=== PATIENT | female | born 1955 | race Caucasian/White ===

== ENCOUNTER 2018-03-27 07:04 | Inpatient (IN) | payer OTHER ==
[2018-03-27 08:37] LABS: ADD MAN DIFF? NO
[2018-03-27 08:41] LABS: BASOPHILS % 0.7 % (0.0-2.0); EOSINOPHILS # 0.1 10^3/ul (0.0-0.5); EOSINOPHILS % 2.6 % (0.0-7.0); HEMOGLOBIN 11.4 g/dl (12.0-16.0); LYMPHOCYTES # 1.1 10^3/ul (0.8-2.9); LYMPHOCYTES % 35.1 % (15.0-51.0); MEAN CORPUSCULAR HEMOGLOBIN 31.8 pg (29.0-33.0); MEAN CORPUSCULAR HGB CONC 33.5 g/dl (32.0-37.0); MEAN CORPUSCULAR VOLUME 94.7 fl (82.0-101.0); MEAN PLATELET VOLUME 10.1 fl (7.4-10.4); MONOCYTE # 0.3 10^3/ul (0.3-0.9); MONOCYTES % 10.6 % (0.0-11.0); NEUTROPHIL # 1.5 10^3/ul (1.6-7.5); NEUTROPHILS % 50.7 % (39.0-77.0); PLATELET COUNT 196 10^3/UL (140-415); RED BLOOD COUNT 3.59 10^6/ul (4.20-5.40)
[2018-03-27] MEDS ORDERED: FENTAnyl 50 MCG/ML VIAL (08:48)
[2018-03-27] MEDS ORDERED: HEPARIN 1000 UNITS/ML 10 ML INJ (08:48)
[2018-03-27] MEDS ORDERED: IODIXANOL LOCM 100 ML BTL (08:48)
[2018-03-27] MEDS ORDERED: MIDAZOLAM 1 MG/ML 2 ML INJ (08:48)
[2018-03-27] MEDS ORDERED: LIDOCAINE 1% (MDV) 20 ML INJ (08:48)
[2018-03-27] MEDS ORDERED: VERAPAMIL 5 MG INJ (08:48)
[2018-03-27] MEDS ORDERED: SOD CHLORIDE 0.9% 500 ML (08:49)
[2018-03-27] MEDS ORDERED: NITROGLYCERIN (IC) 100 MCG/ML INJ (08:49)
[2018-03-27 08:59] LABS: ALANINE AMINOTRANSFERASE 22 IU/L (13-69); ALBUMIN 4.6 g/dl (3.3-4.9); ALBUMIN/GLOBULIN RATIO 1.12; ALKALINE PHOSPHATASE 72 IU/L (42-121); ANION GAP 9 (5-13); ASPARTATE AMINO TRANSFERASE 46 IU/L (15-46); BILIRUBIN,INDIRECT 0.6 mg/dl (0-1.1); BILIRUBIN,TOTAL 0.6 mg/dl (0.2-1.3); BLOOD UREA NITROGEN 14 mg/dl (7-20); CALCIUM 9.8 mg/dl (8.4-10.2); CARBON DIOXIDE 30 mmol/L (21-31); CHLORIDE 103 mmol/L (97-110); CREATININE 0.66 mg/dl (0.44-1.00); Estimated GFR > 60 mL/min (>60); GLUCOSE 95 mg/dl (70-220); POTASSIUM 3.9 mmol/L (3.5-5.1); SODIUM 142 mmol/L (135-144); TOTAL PROTEIN 8.7 g/dl (6.1-8.1)
[2018-03-27 09:01] LABS: INR 1.62; PROTIME 19.3 Sec (11.9-14.9); PT RATIO 1.5
[2018-03-27 09:02] LABS: PARTIAL THROMBOPLASTIN TIME 32.1 Sec (23.0-35.0)
[2018-03-27] MEDS ORDERED: DIAZEPAM 5 MG TAB PO (11:55)
[2018-03-27] MEDS ORDERED: FAMOTIDINE 20 MG TAB PO (12:00)
[2018-03-27] MEDS ORDERED: DIPHENHYDRAMINE 50 MG CAP PO (12:00)
[2018-03-28 08:25] LABS: INR 1.34; PARTIAL THROMBOPLASTIN TIME 27.7 Sec (23.0-35.0); PROTIME 16.7 Sec (11.9-14.9); PT RATIO 1.3
[2018-03-28 08:26] LABS: HDL CHOLESTEROL 61 mg/dl (35-98); LDL CHOLESTEROL,CALCULATED 49 mg/dl; TRIGLYCERIDES 61 mg/dl (0-149)
[2018-03-28 08:26] LABS: CHOLESTEROL 122 mg/dl (100-200)
[2018-03-28] MEDS ORDERED: IODIXANOL LOCM 100 ML BTL (08:57)
[2018-03-28] MEDS ORDERED: FENTAnyl 50 MCG/ML VIAL (08:57)
[2018-03-28] MEDS ORDERED: MIDAZOLAM 1 MG/ML 2 ML INJ (08:57)
[2018-03-28] MEDS ORDERED: LIDOCAINE 1% (MDV) 20 ML INJ (08:57)
[2018-03-28] MEDS ORDERED: AL HYDROX/MG HYDROX/SIMETH 30 ML CUP PO (11:30)
[2018-03-28] MEDS: SOD CHLORIDE 0.9% 1,000 ML IV ×2 (11:39→18:00)
[2018-03-28] MEDS ORDERED: ATROPINE 1 MG/10 ML SYRINGE (12:05)
[2018-03-28] MEDS ORDERED: NORepinephrine 8MG/250 ML (PMX 250 ML (13:44)
[2018-03-28 14:05] LABS: HEMATOCRIT 24.4 % (37.0-47.0); HEMOGLOBIN 7.8 g/dl (12.0-16.0)
[2018-03-28] MEDS: NORepinephrine 8MG/250 ML (PMX 250 ML IV (14:30)
[2018-03-28] MEDS ORDERED: WARFARIN 5 MG TAB PO (17:00)
[2018-03-28] MEDS: SOD CHLORIDE 0.9% 100 ML (18:23)
[2018-03-28] MEDS: IOHEXOL 300MG/ML 150 ML BTL (18:24)
[2018-03-28] MEDS: ACETAMINOPHEN 325 MG TAB PO (20:41)
[2018-03-28] MEDS: ONDANSETRON 4 MG INJ IV (20:41)
[2018-03-28 23:16] LABS: HEMATOCRIT 30.3 % (37.0-47.0); HEMOGLOBIN 9.9 g/dl (12.0-16.0)
[2018-03-29 06:20] LABS: CHOL/HDL RATIO 2.3 RATIO; HDL CHOLESTEROL 36 mg/dl (35-98); LDL CHOLESTEROL,CALCULATED 25 mg/dl; TRIGLYCERIDES 120 mg/dl (0-149)
[2018-03-29 06:20] LABS: CHOLESTEROL 85 mg/dl (100-200)
[2018-03-29 07:09] LABS: ADD MAN DIFF? NO
[2018-03-29 07:16] LABS: BASOPHILS % 0.2 % (0.0-2.0); EOSINOPHILS # 0.1 10^3/ul (0.0-0.5); EOSINOPHILS % 1.2 % (0.0-7.0); HEMATOCRIT 31.2 % (37.0-47.0); HEMOGLOBIN 9.9 g/dl (12.0-16.0); LYMPHOCYTES # 1.1 10^3/ul (0.8-2.9); LYMPHOCYTES % 25.3 % (15.0-51.0); MEAN CORPUSCULAR HEMOGLOBIN 29.6 pg (29.0-33.0); MEAN CORPUSCULAR HGB CONC 31.7 g/dl (32.0-37.0); MEAN CORPUSCULAR VOLUME 93.1 fl (82.0-101.0); MEAN PLATELET VOLUME 10.1 fl (7.4-10.4); MONOCYTE # 0.3 10^3/ul (0.3-0.9); MONOCYTES % 7.4 % (0.0-11.0); NEUTROPHIL # 2.8 10^3/ul (1.6-7.5); NEUTROPHILS % 65.7 % (39.0-77.0); PLATELET COUNT 146 10^3/UL (140-415); RED BLOOD COUNT 3.35 10^6/ul (4.20-5.40); RED CELL DISTRIBUTION WIDTH 15.5 % (11.5-14.5)
[2018-03-29 07:16] LABS: WHITE BLOOD COUNT 4.2 10^3/ul (4.8-10.8)
[2018-03-29 08:03] LABS: ALANINE AMINOTRANSFERASE 21 IU/L (13-69); ALBUMIN 3.2 g/dl (3.3-4.9); ALKALINE PHOSPHATASE 47 IU/L (42-121); ANION GAP 7 (5-13); ASPARTATE AMINO TRANSFERASE 32 IU/L (15-46); BILIRUBIN,INDIRECT 0.7 mg/dl (0-1.1); BILIRUBIN,TOTAL 0.7 mg/dl (0.2-1.3); BLOOD UREA NITROGEN 11 mg/dl (7-20); CALCIUM 8.3 mg/dl (8.4-10.2); CARBON DIOXIDE 24 mmol/L (21-31); CHLORIDE 111 mmol/L (97-110); CREATININE 0.65 mg/dl (0.44-1.00); Estimated GFR > 60 mL/min (>60); GLUCOSE 87 mg/dl (70-220); POTASSIUM 3.8 mmol/L (3.5-5.1); SODIUM 142 mmol/L (135-144); TOTAL PROTEIN 6.1 g/dl (6.1-8.1)
[2018-03-29] MEDS: ACETAMINOPHEN 325 MG TAB PO (11:12)
[2018-03-29] MEDS: SOD CHLORIDE 0.9% 1,000 ML IV ×2 (11:13→20:15)
[2018-03-29 12:33] LABS: HEMATOCRIT 34.5 % (37.0-47.0); HEMOGLOBIN 11.3 g/dl (12.0-16.0)
[2018-03-29 18:49] LABS: HEMATOCRIT 29.1 % (37.0-47.0); HEMOGLOBIN 9.6 g/dl (12.0-16.0)
[2018-03-30] MEDS: ACETAMINOPHEN 325 MG TAB PO ×2 (00:06→10:26)
[2018-03-30 00:58] LABS: HEMATOCRIT 29.1 % (37.0-47.0); HEMOGLOBIN 9.4 g/dl (12.0-16.0)
[2018-03-30 04:56] LABS: ADD MAN DIFF? NO
[2018-03-30 05:22] LABS: BASOPHILS % 0.5 % (0.0-2.0); EOSINOPHILS # 0.1 10^3/ul (0.0-0.5); EOSINOPHILS % 1.8 % (0.0-7.0); HEMATOCRIT 27.3 % (37.0-47.0); HEMOGLOBIN 8.9 g/dl (12.0-16.0); LYMPHOCYTES # 0.9 10^3/ul (0.8-2.9); LYMPHOCYTES % 22.9 % (15.0-51.0); MEAN CORPUSCULAR HEMOGLOBIN 30.9 pg (29.0-33.0); MEAN CORPUSCULAR HGB CONC 32.6 g/dl (32.0-37.0); MEAN CORPUSCULAR VOLUME 94.8 fl (82.0-101.0); MEAN PLATELET VOLUME 10.3 fl (7.4-10.4); MONOCYTE # 0.3 10^3/ul (0.3-0.9); MONOCYTES % 7.3 % (0.0-11.0); NEUTROPHIL # 2.6 10^3/ul (1.6-7.5); PLATELET COUNT 119 10^3/UL (140-415); RED BLOOD COUNT 2.88 10^6/ul (4.20-5.40); RED CELL DISTRIBUTION WIDTH 14.7 % (11.5-14.5)
[2018-03-30 05:22] LABS: WHITE BLOOD COUNT 3.8 10^3/ul (4.8-10.8)
[2018-03-30 05:44] LABS: ALANINE AMINOTRANSFERASE 19 IU/L (13-69); ALBUMIN 3.1 g/dl (3.3-4.9); ALBUMIN/GLOBULIN RATIO 0.96; ALKALINE PHOSPHATASE 42 IU/L (42-121); ANION GAP 9 (5-13); ASPARTATE AMINO TRANSFERASE 25 IU/L (15-46); BILIRUBIN,INDIRECT 0.6 mg/dl (0-1.1); BILIRUBIN,TOTAL 0.6 mg/dl (0.2-1.3); BLOOD UREA NITROGEN 9 mg/dl (7-20); CALCIUM 8.6 mg/dl (8.4-10.2); CARBON DIOXIDE 26 mmol/L (21-31); CHLORIDE 107 mmol/L (97-110); CREATININE 0.61 mg/dl (0.44-1.00); Estimated GFR > 60 mL/min (>60); GLUCOSE 100 mg/dl (70-220); POTASSIUM 3.7 mmol/L (3.5-5.1); SODIUM 142 mmol/L (135-144); TOTAL PROTEIN 6.3 g/dl (6.1-8.1)
[2018-03-30] MEDS: AMLODIPINE 5 MG TAB PO ×2 (10:27→20:14)
[2018-03-30] MEDS: MOMETASONE 0.24 GM INHALER INH (12:06)
[2018-03-30 13:12] LABS: IMMEDIATE SPIN CROSSMATCH 1 4
[2018-03-30] MEDS: SOD CHLORIDE 0.9% 250 ML IV* (15:20)
[2018-03-30 16:23] LABS: HEMATOCRIT 37.5 % (37.0-47.0); HEMOGLOBIN 12.3 g/dl (12.0-16.0)
[2018-03-30] MEDS: SOD CHLORIDE 0.9% 1,000 ML IV (16:29)
[2018-03-30] MEDS: ATORVASTATIN 10 MG TAB PO (20:13)
[2018-03-30] MEDS: RANITIDINE 150 MG TAB PO (20:14)
[2018-03-31] MEDS: morphine 2 MG INJ IV (03:55)
[2018-03-31] MEDS: SOD CHLORIDE 0.9% 1,000 ML IV ×3 (04:34→23:13)
[2018-03-31 05:25] LABS: ADD MAN DIFF? NO
[2018-03-31 05:33] LABS: WHITE BLOOD COUNT 4.5 10^3/ul (4.8-10.8)
[2018-03-31 05:33] LABS: BASOPHILS % 0.7 % (0.0-2.0); EOSINOPHILS # 0.1 10^3/ul (0.0-0.5); HEMOGLOBIN 11.5 g/dl (12.0-16.0); LYMPHOCYTES # 0.9 10^3/ul (0.8-2.9); LYMPHOCYTES % 20.2 % (15.0-51.0); MEAN CORPUSCULAR HEMOGLOBIN 31.4 pg (29.0-33.0); MEAN CORPUSCULAR HGB CONC 33.8 g/dl (32.0-37.0); MEAN CORPUSCULAR VOLUME 92.9 fl (82.0-101.0); MEAN PLATELET VOLUME 9.8 fl (7.4-10.4); MONOCYTE # 0.3 10^3/ul (0.3-0.9); MONOCYTES % 7.1 % (0.0-11.0); NEUTROPHIL # 3.1 10^3/ul (1.6-7.5); NEUTROPHILS % 69.3 % (39.0-77.0); PLATELET COUNT 104 10^3/UL (140-415); RED BLOOD COUNT 3.66 10^6/ul (4.20-5.40); RED CELL DISTRIBUTION WIDTH 14.2 % (11.5-14.5)
[2018-03-31 05:58] LABS: ALANINE AMINOTRANSFERASE 17 IU/L (13-69); ALBUMIN 3.1 g/dl (3.3-4.9); ALBUMIN/GLOBULIN RATIO 0.96; ALKALINE PHOSPHATASE 44 IU/L (42-121); ANION GAP 10 (5-13); ASPARTATE AMINO TRANSFERASE 27 IU/L (15-46); BILIRUBIN,INDIRECT 0.7 mg/dl (0-1.1); BILIRUBIN,TOTAL 0.7 mg/dl (0.2-1.3); BLOOD UREA NITROGEN 7 mg/dl (7-20); CALCIUM 8.3 mg/dl (8.4-10.2); CARBON DIOXIDE 26 mmol/L (21-31); CHLORIDE 108 mmol/L (97-110); Estimated GFR > 60 mL/min (>60); GLUCOSE 103 mg/dl (70-220); POTASSIUM 3.5 mmol/L (3.5-5.1); SODIUM 144 mmol/L (135-144); TOTAL PROTEIN 6.3 g/dl (6.1-8.1)
[2018-03-31] MEDS: LEVOTHYROXINE 50 MCG TAB PO (06:38)
[2018-03-31] MEDS: AMLODIPINE 5 MG TAB PO ×2 (08:44→21:17)
[2018-03-31] MEDS: MOMETASONE 0.24 GM INHALER INH (08:44)
[2018-03-31] MEDS: ONDANSETRON 4 MG INJ IV (09:29)
[2018-03-31] MEDS ORDERED: HEPARIN 1000 UNITS/ML 10 ML INJ IV (10:30)
[2018-03-31 10:58] LABS: ADD MAN DIFF? NO
[2018-03-31 11:00] LABS: WHITE BLOOD COUNT 4.4 10^3/ul (4.8-10.8)
[2018-03-31 11:00] LABS: BASOPHILS % 0.7 % (0.0-2.0); EOSINOPHILS # 0.1 10^3/ul (0.0-0.5); EOSINOPHILS % 1.6 % (0.0-7.0); HEMATOCRIT 34.6 % (37.0-47.0); HEMOGLOBIN 11.4 g/dl (12.0-16.0); LYMPHOCYTES # 0.6 10^3/ul (0.8-2.9); LYMPHOCYTES % 14.4 % (15.0-51.0); MEAN CORPUSCULAR HEMOGLOBIN 30.9 pg (29.0-33.0); MEAN CORPUSCULAR HGB CONC 32.9 g/dl (32.0-37.0); MEAN CORPUSCULAR VOLUME 93.8 fl (82.0-101.0); MEAN PLATELET VOLUME 11.3 fl (7.4-10.4); MONOCYTE # 0.2 10^3/ul (0.3-0.9); MONOCYTES % 5.5 % (0.0-11.0); NEUTROPHIL # 3.4 10^3/ul (1.6-7.5); NEUTROPHILS % 77.1 % (39.0-77.0); PLATELET COUNT 101 10^3/UL (140-415); RED BLOOD COUNT 3.69 10^6/ul (4.20-5.40); RED CELL DISTRIBUTION WIDTH 14.3 % (11.5-14.5)
[2018-03-31 11:19] LABS: PROTIME 14.3 Sec (11.9-14.9); PT RATIO 1.1
[2018-03-31 11:20] LABS: PARTIAL THROMBOPLASTIN TIME 22.7 Sec (23.0-35.0)
[2018-03-31] MEDS: HEPARIN 1000 UNITS/ML 10 ML INJ IV (12:18)
[2018-03-31] MEDS: HEPARIN 25000 UNITS/250 ML 250 ML IV (12:24)
[2018-03-31 15:05] LABS: ADD MAN DIFF? NO
[2018-03-31 15:08] LABS: BASOPHILS % 0.5 % (0.0-2.0); EOSINOPHILS # 0.1 10^3/ul (0.0-0.5); EOSINOPHILS % 2.9 % (0.0-7.0); HEMOGLOBIN 11.5 g/dl (12.0-16.0); LYMPHOCYTES # 0.9 10^3/ul (0.8-2.9); LYMPHOCYTES % 20.9 % (15.0-51.0); MEAN CORPUSCULAR HEMOGLOBIN 30.5 pg (29.0-33.0); MEAN CORPUSCULAR HGB CONC 32.9 g/dl (32.0-37.0); MEAN CORPUSCULAR VOLUME 92.8 fl (82.0-101.0); MONOCYTE # 0.3 10^3/ul (0.3-0.9); NEUTROPHILS % 68.5 % (39.0-77.0); PLATELET COUNT 107 10^3/UL (140-415); RED BLOOD COUNT 3.77 10^6/ul (4.20-5.40); RED CELL DISTRIBUTION WIDTH 14.4 % (11.5-14.5)
[2018-03-31 15:08] LABS: WHITE BLOOD COUNT 4.4 10^3/ul (4.8-10.8)
[2018-03-31 19:00] LABS: PARTIAL THROMBOPLASTIN TIME 105.9 Sec (23.0-35.0)
[2018-03-31] MEDS: ATORVASTATIN 10 MG TAB PO (21:17)
[2018-03-31] MEDS: RANITIDINE 150 MG TAB PO (21:17)
[2018-03-31] MEDS: ACETAMINOPHEN 325 MG TAB PO (21:50)
[2018-04-01 01:13] LABS: PARTIAL THROMBOPLASTIN TIME 58.4 Sec (23.0-35.0)
[2018-04-01 05:27] LABS: ADD MAN DIFF? NO
[2018-04-01 05:31] LABS: BASOPHILS % 0.5 % (0.0-2.0); EOSINOPHILS # 0.1 10^3/ul (0.0-0.5); EOSINOPHILS % 3.5 % (0.0-7.0); HEMATOCRIT 34.7 % (37.0-47.0); HEMOGLOBIN 11.4 g/dl (12.0-16.0); LYMPHOCYTES # 0.9 10^3/ul (0.8-2.9); LYMPHOCYTES % 22.8 % (15.0-51.0); MEAN CORPUSCULAR HGB CONC 32.9 g/dl (32.0-37.0); MEAN CORPUSCULAR VOLUME 94.3 fl (82.0-101.0); MONOCYTE # 0.3 10^3/ul (0.3-0.9); MONOCYTES % 7.8 % (0.0-11.0); NEUTROPHIL # 2.4 10^3/ul (1.6-7.5); NEUTROPHILS % 64.6 % (39.0-77.0); PLATELET COUNT 107 10^3/UL (140-415); RED BLOOD COUNT 3.68 10^6/ul (4.20-5.40); RED CELL DISTRIBUTION WIDTH 14.2 % (11.5-14.5)
[2018-04-01 05:31] LABS: WHITE BLOOD COUNT 3.7 10^3/ul (4.8-10.8)
[2018-04-01 05:55] LABS: ALANINE AMINOTRANSFERASE 22 IU/L (13-69); ALBUMIN/GLOBULIN RATIO 0.93; ALKALINE PHOSPHATASE 48 IU/L (42-121); ANION GAP 1 (5-13); ASPARTATE AMINO TRANSFERASE 28 IU/L (15-46); BILIRUBIN,INDIRECT 0.6 mg/dl (0-1.1); BILIRUBIN,TOTAL 0.6 mg/dl (0.2-1.3); BLOOD UREA NITROGEN 8 mg/dl (7-20); CALCIUM 8.4 mg/dl (8.4-10.2); CARBON DIOXIDE 28 mmol/L (21-31); CHLORIDE 113 mmol/L (97-110); CREATININE 0.56 mg/dl (0.44-1.00); Estimated GFR > 60 mL/min (>60); GLUCOSE 95 mg/dl (70-220); POTASSIUM 3.6 mmol/L (3.5-5.1); SODIUM 142 mmol/L (135-144); TOTAL PROTEIN 6.2 g/dl (6.1-8.1)
[2018-04-01] MEDS: LEVOTHYROXINE 50 MCG TAB PO (06:47)
[2018-04-01] MEDS: ACETAMINOPHEN 325 MG TAB PO ×3 (07:21→23:35)
[2018-04-01 08:56] LABS: PARTIAL THROMBOPLASTIN TIME 53.5 Sec (23.0-35.0)
[2018-04-01] MEDS: MOMETASONE 0.24 GM INHALER INH (09:06)
[2018-04-01] MEDS: AMLODIPINE 5 MG TAB PO ×2 (09:07→20:45)
[2018-04-01] MEDS: FUROSEMIDE 20 MG INJ IV (09:09)
[2018-04-01 14:46] LABS: INR 1.08; PROTIME 14.1 Sec (11.9-14.9); PT RATIO 1.1
[2018-04-01 14:47] LABS: PARTIAL THROMBOPLASTIN TIME 54.3 Sec (23.0-35.0)
[2018-04-01] MEDS: SOD CHLORIDE 0.9% 1,000 ML IV ×2 (16:06→20:48)
[2018-04-01 16:13] LABS: ADD MAN DIFF? NO; BASOPHILS % 0.4 % (0.0-2.0); EOSINOPHILS # 0.1 10^3/ul (0.0-0.5); EOSINOPHILS % 2.3 % (0.0-7.0); HEMATOCRIT 35.3 % (37.0-47.0); HEMOGLOBIN 11.7 g/dl (12.0-16.0); LYMPHOCYTES # 0.7 10^3/ul (0.8-2.9); LYMPHOCYTES % 13.6 % (15.0-51.0); MEAN CORPUSCULAR HGB CONC 33.1 g/dl (32.0-37.0); MEAN CORPUSCULAR VOLUME 93.4 fl (82.0-101.0); MEAN PLATELET VOLUME 9.7 fl (7.4-10.4); MONOCYTE # 0.3 10^3/ul (0.3-0.9); MONOCYTES % 6.4 % (0.0-11.0); NEUTROPHIL # 3.7 10^3/ul (1.6-7.5); NEUTROPHILS % 77.1 % (39.0-77.0); PLATELET COUNT 116 10^3/UL (140-415); RED BLOOD COUNT 3.78 10^6/ul (4.20-5.40); RED CELL DISTRIBUTION WIDTH 14.1 % (11.5-14.5)
[2018-04-01 16:13] LABS: WHITE BLOOD COUNT 4.9 10^3/ul (4.8-10.8)
[2018-04-01] MEDS: WARFARIN 5 MG TAB NGT (17:18)
[2018-04-01] MEDS: ATORVASTATIN 10 MG TAB PO (20:44)
[2018-04-01] MEDS: RANITIDINE 150 MG TAB PO (20:45)
[2018-04-01 22:37] LABS: INR 1.17; PT RATIO 1.2
[2018-04-01 23:01] LABS: PARTIAL THROMBOPLASTIN TIME 79.5 Sec (23.0-35.0)
[2018-04-02 05:24] LABS: ADD MAN DIFF? NO
[2018-04-02 05:28] LABS: WHITE BLOOD COUNT 4.3 10^3/ul (4.8-10.8)
[2018-04-02 05:28] LABS: BASOPHILS % 0.5 % (0.0-2.0); EOSINOPHILS # 0.1 10^3/ul (0.0-0.5); EOSINOPHILS % 2.6 % (0.0-7.0); HEMATOCRIT 34.6 % (37.0-47.0); HEMOGLOBIN 11.4 g/dl (12.0-16.0); LYMPHOCYTES # 0.8 10^3/ul (0.8-2.9); LYMPHOCYTES % 18.3 % (15.0-51.0); MEAN CORPUSCULAR HGB CONC 32.9 g/dl (32.0-37.0); MEAN PLATELET VOLUME 10.1 fl (7.4-10.4); MONOCYTE # 0.3 10^3/ul (0.3-0.9); MONOCYTES % 7.3 % (0.0-11.0); NEUTROPHILS % 71.1 % (39.0-77.0); PLATELET COUNT 118 10^3/UL (140-415); RED BLOOD COUNT 3.68 10^6/ul (4.20-5.40)
[2018-04-02] MEDS: LEVOTHYROXINE 50 MCG TAB PO ×2 (05:36→07:54)
[2018-04-02 06:18] LABS: INR 1.18; PROTIME 15.1 Sec (11.9-14.9); PT RATIO 1.2
[2018-04-02 06:42] LABS: PARTIAL THROMBOPLASTIN TIME 84.6 Sec (23.0-35.0)
[2018-04-02] MEDS: ACETAMINOPHEN 325 MG TAB PO ×2 (07:54→12:08)
[2018-04-02] MEDS: MOMETASONE 0.24 GM INHALER INH (07:54)
[2018-04-02] MEDS: AMLODIPINE 5 MG TAB PO ×2 (08:02→20:47)
[2018-04-02 12:45] LABS: INR 1.18; PROTIME 15.1 Sec (11.9-14.9); PT RATIO 1.2
[2018-04-02 12:46] LABS: PARTIAL THROMBOPLASTIN TIME 63.3 Sec (23.0-35.0)
[2018-04-02] MEDS: FUROSEMIDE 20 MG INJ IV (15:15)
[2018-04-02] MEDS: HEPARIN 25000 UNITS/250 ML 250 ML IV (15:18)
[2018-04-02] MEDS: WARFARIN 5 MG TAB NGT (16:41)
[2018-04-02 18:40] LABS: PROTIME 15.3 Sec (11.9-14.9); PT RATIO 1.2
[2018-04-02 18:41] LABS: PARTIAL THROMBOPLASTIN TIME 55.5 Sec (23.0-35.0)
[2018-04-02] MEDS: ATORVASTATIN 10 MG TAB PO (20:46)
[2018-04-02] MEDS: LATANOPROST 0.005% 2.5 ML OPH BOTH EYES (20:46)
[2018-04-02] MEDS: RANITIDINE 150 MG TAB PO (20:46)
[2018-04-03] MEDS: ACETAMINOPHEN 325 MG TAB PO ×2 (01:25→11:12)
[2018-04-03 02:52] LABS: ADD MAN DIFF? NO
[2018-04-03 02:55] LABS: WHITE BLOOD COUNT 5.5 10^3/ul (4.8-10.8)
[2018-04-03 02:55] LABS: BASOPHILS % 0.2 % (0.0-2.0); EOSINOPHILS % 0.7 % (0.0-7.0); HEMATOCRIT 33.2 % (37.0-47.0); HEMOGLOBIN 11.1 g/dl (12.0-16.0); LYMPHOCYTES # 0.7 10^3/ul (0.8-2.9); LYMPHOCYTES % 11.8 % (15.0-51.0); MEAN CORPUSCULAR HGB CONC 33.4 g/dl (32.0-37.0); MEAN CORPUSCULAR VOLUME 92.7 fl (82.0-101.0); MONOCYTE # 0.4 10^3/ul (0.3-0.9); MONOCYTES % 7.6 % (0.0-11.0); NEUTROPHIL # 4.4 10^3/ul (1.6-7.5); NEUTROPHILS % 79.3 % (39.0-77.0); PLATELET COUNT 128 10^3/UL (140-415); RED BLOOD COUNT 3.58 10^6/ul (4.20-5.40)
[2018-04-03] MEDS: CEFTRIAXONE 1 GM/50 ML (PMX) 50 ML IVPB (03:04)
[2018-04-03 03:15] LABS: ANION GAP 4 (5-13); BLOOD UREA NITROGEN 9 mg/dl (7-20); CALCIUM 8.7 mg/dl (8.4-10.2); CARBON DIOXIDE 32 mmol/L (21-31); CHLORIDE 103 mmol/L (97-110); CREATININE 0.55 mg/dl (0.44-1.00); Estimated GFR > 60 mL/min (>60); GLUCOSE 120 mg/dl (70-220); INR 1.32; POTASSIUM 3.3 mmol/L (3.5-5.1); PROTIME 16.5 Sec (11.9-14.9); PT RATIO 1.3; SODIUM 139 mmol/L (135-144)
[2018-04-03 03:16] LABS: ADD UMIC YES; UR ASCORBIC ACID NEGATIVE (NEGATIVE); UR BACTERIA FEW /HPF (NONE SEEN); UR BILIRUBIN (Dip) NEGATIVE (NEGATIVE); UR BLOOD (Dip) 1+ mg/dL (NEGATIVE); UR CLARITY CLOUDY (CLEAR); UR COLOR YELLOW (YELLOW); UR GLUCOSE (Dip) NEGATIVE (NEGATIVE); UR KETONES (Dip) NEGATIVE (NEGATIVE); UR LEUKOCYTE ESTERASE (Dip) 3+ Leu/ul (NEGATIVE); UR NITRITE (Dip) NEGATIVE (NEGATIVE); UR RBC 63 /HPF (0-5); UR SPECIFIC GRAVITY (Dip) 1.014 (1.003-1.030); UR SQUAMOUS EPITHELIAL CELL FEW /HPF (FEW); UR TOTAL PROTEIN (Dip) 1+ mg/dl (NEGATIVE); UR UROBILINOGEN (Dip) NEGATIVE (NEGATIVE); UR WBC > 182 /HPF (0-5)
[2018-04-03 03:20] LABS: PARTIAL THROMBOPLASTIN TIME 85.2 Sec (23.0-35.0)
[2018-04-03] MEDS: POTASSIUM CHLORIDE (SR) 20 MEQ TAB PO (08:52)
[2018-04-03] MEDS: AMLODIPINE 5 MG TAB PO (08:52)
[2018-04-03] MEDS: MOMETASONE 0.24 GM INHALER INH (08:53)
[2018-04-03] MEDS: FUROSEMIDE 20 MG INJ IV (08:53)
[2018-04-03 11:01] LABS: PARTIAL THROMBOPLASTIN TIME 77.2 Sec (23.0-35.0)
[2018-04-03] MEDS: morphine 2 MG INJ IV ×2 (11:57→16:02)
[2018-04-03 14:08] LABS: ADD MAN DIFF? NO
[2018-04-03 14:09] LABS: WHITE BLOOD COUNT 12.4 10^3/ul (4.8-10.8)
[2018-04-03 14:09] LABS: BASOPHILS % 0.3 % (0.0-2.0); EOSINOPHILS # 0.1 10^3/ul (0.0-0.5); EOSINOPHILS % 0.7 % (0.0-7.0); HEMATOCRIT 32.9 % (37.0-47.0); HEMOGLOBIN 10.9 g/dl (12.0-16.0); LYMPHOCYTES # 1.4 10^3/ul (0.8-2.9); LYMPHOCYTES % 11.6 % (15.0-51.0); MEAN CORPUSCULAR HEMOGLOBIN 31.1 pg (29.0-33.0); MEAN CORPUSCULAR HGB CONC 33.1 g/dl (32.0-37.0); MEAN CORPUSCULAR VOLUME 93.7 fl (82.0-101.0); MEAN PLATELET VOLUME 10.4 fl (7.4-10.4); MONOCYTE # 0.5 10^3/ul (0.3-0.9); MONOCYTES % 3.7 % (0.0-11.0); NEUTROPHIL # 10.3 10^3/ul (1.6-7.5); NEUTROPHILS % 82.8 % (39.0-77.0); PLATELET COUNT 206 10^3/UL (140-415); RED BLOOD COUNT 3.51 10^6/ul (4.20-5.40); RED CELL DISTRIBUTION WIDTH 14.2 % (11.5-14.5)
[2018-04-03 14:42] LABS: LACTIC ACID 5.5 mmol/L (0.5-2.0)
[2018-04-03] MEDS: SOD CHLORIDE 0.9% 500 ML IV (15:44)
[2018-04-03] MEDS: LACTATED RINGER'S 1,000 ML IV (15:44)
[2018-04-03] MEDS ORDERED: VANCOMYCIN IV PER PHARMACY XX (16:00)
[2018-04-03 16:20] LABS: ADD MAN DIFF? NO
[2018-04-03 16:22] LABS: BASOPHILS % 0.2 % (0.0-2.0); HEMATOCRIT 28.5 % (37.0-47.0); HEMOGLOBIN 9.4 g/dl (12.0-16.0); LYMPHOCYTES # 0.8 10^3/ul (0.8-2.9); LYMPHOCYTES % 6.9 % (15.0-51.0); MEAN CORPUSCULAR HEMOGLOBIN 31.1 pg (29.0-33.0); MEAN CORPUSCULAR VOLUME 94.4 fl (82.0-101.0); MEAN PLATELET VOLUME 9.7 fl (7.4-10.4); MONOCYTE # 0.8 10^3/ul (0.3-0.9); MONOCYTES % 6.3 % (0.0-11.0); NEUTROPHIL # 10.2 10^3/ul (1.6-7.5); NEUTROPHILS % 85.3 % (39.0-77.0); PLATELET COUNT 172 10^3/UL (140-415); RED BLOOD COUNT 3.02 10^6/ul (4.20-5.40); RED CELL DISTRIBUTION WIDTH 14.2 % (11.5-14.5)
[2018-04-03 16:39] LABS: ANION GAP 7 (5-13); BLOOD UREA NITROGEN 13 mg/dl (7-20); CALCIUM 8.1 mg/dl (8.4-10.2); CARBON DIOXIDE 27 mmol/L (21-31); CHLORIDE 102 mmol/L (97-110); Estimated GFR 56 mL/min (>60); GLUCOSE 203 mg/dl (70-220); POTASSIUM 3.9 mmol/L (3.5-5.1); SODIUM 136 mmol/L (135-144)
[2018-04-03] MEDS: WARFARIN 5 MG TAB NGT (17:00)
[2018-04-03 17:04] LABS: PARTIAL THROMBOPLASTIN TIME 102.7 Sec (23.0-35.0)
[2018-04-03] MEDS: IOHEXOL 300MG/ML 150 ML BTL (17:05)
[2018-04-03] MEDS: SOD CHLORIDE 0.9% 100 ML (17:05)
[2018-04-03] MEDS: PIPER-TAZO 3.375 GM IV (PMX) 100 ML IVPB (17:25)
[2018-04-03] MEDS: DIGOXIN 500 MCG INJ IV (17:45)
[2018-04-03 18:02] LABS: HEMATOCRIT 19.3 % (37.0-47.0)
[2018-04-03 18:05] LABS: HEMOGLOBIN 6.1 g/dl (12.0-16.0)
[2018-04-03 18:39] LABS: IMMEDIATE SPIN CROSSMATCH 1 2
[2018-04-03] MEDS: NS + KCL 20 MEQ 1,000 ML IV ×2 (18:59→22:26)
[2018-04-03] MEDS ORDERED: PHENYLephrine 40 MG in DEXTROSE 5% 246 ML IV (19:30)
[2018-04-03] MEDS: ATORVASTATIN 10 MG TAB PO (21:00)
[2018-04-03] MEDS ORDERED: IOHEXOL 350MG/ML 50 ML BTL (21:24)
[2018-04-03] MEDS ORDERED: LIDOCAINE 1% (MDV) 20 ML INJ (21:24)
[2018-04-03] MEDS ORDERED: IODIXANOL LOCM 100 ML BTL (21:24)
[2018-04-03] MEDS ORDERED: FENTAnyl 50 MCG/ML VIAL (21:25)
[2018-04-03] MEDS ORDERED: MIDAZOLAM 1 MG/ML 2 ML INJ (21:25)
[2018-04-03] MEDS ORDERED: SOD CHLORIDE 0.9% 500 ML (21:25)
[2018-04-03] MEDS: VANCOMYCIN HCL 1.25 GM in SOD CHLORIDE 0.9% 250 ML IVPB (22:25)
[2018-04-03] MEDS: FAMOTIDINE 20 MG INJ IV (22:26)
[2018-04-03] MEDS: LATANOPROST 0.005% 2.5 ML OPH BOTH EYES (22:26)
[2018-04-03] MEDS: ONDANSETRON 4 MG INJ IV (22:59)
[2018-04-04] MEDS: PIPER-TAZO 3.375 GM IV (PMX) 100 ML IVPB ×2 (00:21→06:01)
[2018-04-04] MEDS: morphine 2 MG INJ IV ×3 (00:26→21:24)
[2018-04-04 00:49] LABS: HEMATOCRIT 36.1 % (37.0-47.0); HEMOGLOBIN 12.1 g/dl (12.0-16.0)
[2018-04-04 05:26] LABS: ADD MAN DIFF? NO
[2018-04-04 05:28] LABS: WHITE BLOOD COUNT 15.9 10^3/ul (4.8-10.8)
[2018-04-04 05:28] LABS: BASOPHILS % 0.2 % (0.0-2.0); HEMATOCRIT 37.5 % (37.0-47.0); HEMOGLOBIN 12.3 g/dl (12.0-16.0); LYMPHOCYTES # 1.1 10^3/ul (0.8-2.9); LYMPHOCYTES % 6.9 % (15.0-51.0); MEAN CORPUSCULAR HEMOGLOBIN 31.2 pg (29.0-33.0); MEAN CORPUSCULAR HGB CONC 32.8 g/dl (32.0-37.0); MEAN CORPUSCULAR VOLUME 95.2 fl (82.0-101.0); MEAN PLATELET VOLUME 10.2 fl (7.4-10.4); MONOCYTE # 1.3 10^3/ul (0.3-0.9); MONOCYTES % 8.3 % (0.0-11.0); NEUTROPHIL # 13.3 10^3/ul (1.6-7.5); NEUTROPHILS % 83.4 % (39.0-77.0); PLATELET COUNT 140 10^3/UL (140-415); RED BLOOD COUNT 3.94 10^6/ul (4.20-5.40); RED CELL DISTRIBUTION WIDTH 15.3 % (11.5-14.5)
[2018-04-04 05:51] LABS: INR 1.73; PROTIME 20.3 Sec (11.9-14.9); PT RATIO 1.6
[2018-04-04 06:02] LABS: ANION GAP 8 (5-13); BLOOD UREA NITROGEN 21 mg/dl (7-20); CALCIUM 8.1 mg/dl (8.4-10.2); CARBON DIOXIDE 20 mmol/L (21-31); CHLORIDE 108 mmol/L (97-110); CREATININE 1.94 mg/dl (0.44-1.00); Estimated GFR 26 mL/min (>60); GLUCOSE 139 mg/dl (70-220); SODIUM 136 mmol/L (135-144)
[2018-04-04] MEDS: NS + KCL 20 MEQ 1,000 ML IV (07:20)
[2018-04-04] MEDS: NA BICARBONATE 8.4% 50 ML SYG IV (08:14)
[2018-04-04] MEDS: LEVOTHYROXINE 50 MCG TAB PO (08:14)
[2018-04-04] MEDS: AMLODIPINE 5 MG TAB PO (09:00)
[2018-04-04] MEDS: DEXTROSE 50% 50 ML SYRINGE IV (09:11)
[2018-04-04] MEDS: INSULIN REGULAR, HUMAN 100 UNIT/1 ML 3ML VIAL IV (09:37)
[2018-04-04 10:39] LABS: ADD MAN DIFF? NO
[2018-04-04] MEDS: FAMOTIDINE 20 MG INJ IV ×2 (10:42→20:25)
[2018-04-04 10:52] LABS: WHITE BLOOD COUNT 15.5 10^3/ul (4.8-10.8)
[2018-04-04 10:52] LABS: BASOPHILS % 0.2 % (0.0-2.0); HEMOGLOBIN 11.6 g/dl (12.0-16.0); LYMPHOCYTES % 6.7 % (15.0-51.0); MEAN CORPUSCULAR HEMOGLOBIN 30.9 pg (29.0-33.0); MEAN CORPUSCULAR HGB CONC 33.1 g/dl (32.0-37.0); MEAN CORPUSCULAR VOLUME 93.3 fl (82.0-101.0); MEAN PLATELET VOLUME 10.8 fl (7.4-10.4); MONOCYTE # 1.3 10^3/ul (0.3-0.9); MONOCYTES % 8.3 % (0.0-11.0); PLATELET COUNT 162 10^3/UL (140-415); RED BLOOD COUNT 3.75 10^6/ul (4.20-5.40); RED CELL DISTRIBUTION WIDTH 15.4 % (11.5-14.5)
[2018-04-04 10:58] LABS: ANION GAP 9 (5-13); BLOOD UREA NITROGEN 25 mg/dl (7-20); CALCIUM 8.2 mg/dl (8.4-10.2); CARBON DIOXIDE 23 mmol/L (21-31); CHLORIDE 106 mmol/L (97-110); CREATININE 2.23 mg/dl (0.44-1.00); Estimated GFR 22 mL/min (>60); GLUCOSE 146 mg/dl (70-220); POTASSIUM 5.2 mmol/L (3.5-5.1); SODIUM 138 mmol/L (135-144)
[2018-04-04 11:09] LABS: LACTIC ACID 3.9 mmol/L (0.5-2.0)
[2018-04-04] MEDS: PIPER-TAZO 2.25 GM/NS 50 ML IVPB ×3 (12:35→23:43)
[2018-04-04] MEDS: FUROSEMIDE 40 MG INJ IV (14:27)
[2018-04-04 16:09] LABS: HEMATOCRIT 33.6 % (37.0-47.0); HEMOGLOBIN 11.1 g/dl (12.0-16.0)
[2018-04-04 16:27] LABS: ANION GAP 7 (5-13); BLOOD UREA NITROGEN 29 mg/dl (7-20); CALCIUM 8.3 mg/dl (8.4-10.2); CARBON DIOXIDE 23 mmol/L (21-31); CHLORIDE 102 mmol/L (97-110); CREATININE 2.74 mg/dl (0.44-1.00); Estimated GFR 18 mL/min (>60); GLUCOSE 212 mg/dl (70-220); SODIUM 132 mmol/L (135-144)
[2018-04-04] MEDS: ONDANSETRON 4 MG INJ IV ×2 (18:26→23:52)
[2018-04-04] MEDS ORDERED: VANCOMYCIN 1 GM 250 ML IVPB (20:00)
[2018-04-04] MEDS: LATANOPROST 0.005% 2.5 ML OPH BOTH EYES (20:25)
[2018-04-04] MEDS: ATORVASTATIN 10 MG TAB PO (20:25)
[2018-04-05 00:25] LABS: ADD UMIC YES; UR ASCORBIC ACID NEGATIVE (NEGATIVE); UR BACTERIA FEW /HPF (NONE SEEN); UR BILIRUBIN (Dip) NEGATIVE (NEGATIVE); UR BLOOD (Dip) 3+ mg/dL (NEGATIVE); UR CLARITY SLIGHTLY CLOUDY (CLEAR); UR COLOR AMBER (YELLOW); UR GLUCOSE (Dip) 2+ mg/dL (NEGATIVE); UR KETONES (Dip) NEGATIVE (NEGATIVE); UR LEUKOCYTE ESTERASE (Dip) NEGATIVE Leu/ul (NEGATIVE); UR NITRITE (Dip) NEGATIVE (NEGATIVE); UR RBC > 182 /HPF (0-5); UR SPECIFIC GRAVITY (Dip) 1.018 (1.003-1.030); UR TOTAL PROTEIN (Dip) 2+ mg/dl (NEGATIVE); UR UROBILINOGEN (Dip) NEGATIVE (NEGATIVE); UR WBC 6 /HPF (0-5)
[2018-04-05 02:04] LABS: SODIUM,URINE RANDOM 152 mmol/L (30-90)
[2018-04-05 02:07] LABS: CREATININE,URINE RANDOM < 12.40 mg/dl (20-320)
[2018-04-05] MEDS: ONDANSETRON 4 MG INJ IV ×4 (03:39→21:16)
[2018-04-05] MEDS: PIPER-TAZO 2.25 GM/NS 50 ML IVPB ×2 (05:26→12:52)
[2018-04-05 05:27] LABS: ADD MAN DIFF? NO
[2018-04-05 05:36] LABS: BASOPHILS % 0.2 % (0.0-2.0); HEMATOCRIT 29.9 % (37.0-47.0); LYMPHOCYTES # 0.6 10^3/ul (0.8-2.9); LYMPHOCYTES % 4.8 % (15.0-51.0); MEAN CORPUSCULAR HGB CONC 33.4 g/dl (32.0-37.0); MEAN CORPUSCULAR VOLUME 92.6 fl (82.0-101.0); MONOCYTE # 0.8 10^3/ul (0.3-0.9); MONOCYTES % 6.2 % (0.0-11.0); NEUTROPHIL # 11.5 10^3/ul (1.6-7.5); NEUTROPHILS % 88.1 % (39.0-77.0); PLATELET COUNT 155 10^3/UL (140-415); RED BLOOD COUNT 3.23 10^6/ul (4.20-5.40); RED CELL DISTRIBUTION WIDTH 15.1 % (11.5-14.5)
[2018-04-05 05:51] LABS: INR 1.67; PROTIME 19.8 Sec (11.9-14.9); PT RATIO 1.5
[2018-04-05 06:32] LABS: ANION GAP 12 (5-13); BLOOD UREA NITROGEN 41 mg/dl (7-20); CALCIUM 8.6 mg/dl (8.4-10.2); CARBON DIOXIDE 22 mmol/L (21-31); CHLORIDE 103 mmol/L (97-110); CREATININE 3.75 mg/dl (0.44-1.00); Estimated GFR 12 mL/min (>60); GLUCOSE 146 mg/dl (70-220); POTASSIUM 5.6 mmol/L (3.5-5.1); SODIUM 137 mmol/L (135-144)
[2018-04-05] MEDS: LEVOTHYROXINE 50 MCG TAB PO (08:41)
[2018-04-05] MEDS: FAMOTIDINE 20 MG INJ IV (08:41)
[2018-04-05] MEDS: MOMETASONE 0.24 GM INHALER INH ×2 (08:53→09:03)
[2018-04-05] MEDS: SODIUM POLYSTYRENE 15 GM KIT (POWDER + SORBITOL) PO (09:30)
[2018-04-05] MEDS: BUMETANIDE 3 MG in DEXTROSE 5% 18 ML IV (10:49)
[2018-04-05 12:41] LABS: ADD MAN DIFF? NO
[2018-04-05 12:43] LABS: ABNORMAL IP MESSAGE 1; BASOPHILS % 0.1 % (0.0-2.0); HEMATOCRIT 29.4 % (37.0-47.0); HEMOGLOBIN 9.8 g/dl (12.0-16.0); LYMPHOCYTES # 0.5 10^3/ul (0.8-2.9); LYMPHOCYTES % 4.3 % (15.0-51.0); MEAN CORPUSCULAR HEMOGLOBIN 30.8 pg (29.0-33.0); MEAN CORPUSCULAR HGB CONC 33.3 g/dl (32.0-37.0); MEAN CORPUSCULAR VOLUME 92.5 fl (82.0-101.0); MEAN PLATELET VOLUME 10.1 fl (7.4-10.4); MONOCYTE # 0.7 10^3/ul (0.3-0.9); MONOCYTES % 5.6 % (0.0-11.0); NEUTROPHIL # 10.5 10^3/ul (1.6-7.5); NEUTROPHILS % 88.6 % (39.0-77.0); NUCLEATED RED BLOOD CELLS% 0.2 /100WBC (0.0-0.0); PLATELET COUNT 177 10^3/UL (140-415); RED BLOOD COUNT 3.18 10^6/ul (4.20-5.40); RED CELL DISTRIBUTION WIDTH 15.4 % (11.5-14.5)
[2018-04-05 12:43] LABS: WHITE BLOOD COUNT 11.9 10^3/ul (4.8-10.8)
[2018-04-05 12:53] LABS: POSITIVE DIFF @See below
[2018-04-05 13:00] LABS: ANION GAP 10 (5-13); BLOOD UREA NITROGEN 45 mg/dl (7-20); CALCIUM 8.7 mg/dl (8.4-10.2); CARBON DIOXIDE 23 mmol/L (21-31); CHLORIDE 101 mmol/L (97-110); CREATININE 4.31 mg/dl (0.44-1.00); Estimated GFR 10 mL/min (>60); GLUCOSE 148 mg/dl (70-220); POTASSIUM 5.2 mmol/L (3.5-5.1); SODIUM 134 mmol/L (135-144)
[2018-04-05] MEDS: DIGOXIN 500 MCG INJ IV (14:14)
[2018-04-05] MEDS ORDERED: LIDOCAINE 1% (MDV) 20 ML INJ (14:45)
[2018-04-05] MEDS ORDERED: HEPARIN 1000 UNITS/ML 10 ML INJ ×2 (14:45→16:38)
[2018-04-05] MEDS ORDERED: VERAPAMIL 5 MG INJ (14:46)
[2018-04-05] MEDS ORDERED: ONDANSETRON 4 MG INJ ×2 (14:46→16:35)
[2018-04-05] MEDS ORDERED: NITROGLYCERIN (IC) 100 MCG/ML INJ (14:46)
[2018-04-05] MEDS ORDERED: FENTAnyl 50 MCG/ML VIAL (14:46)
[2018-04-05] MEDS ORDERED: MIDAZOLAM 1 MG/ML 2 ML INJ (14:46)
[2018-04-05] MEDS ORDERED: PHENYLephrine (100 MCG/ML) 5ML SYG (15:26)
[2018-04-05] MEDS ORDERED: HEPARIN 25000 UNITS/250 ML 250 ML (17:37)
[2018-04-05 19:19] LABS: ADD MAN DIFF? NO
[2018-04-05 19:21] LABS: ABNORMAL IP MESSAGE 1; BASOPHILS % 0.2 % (0.0-2.0); HEMATOCRIT 28.5 % (37.0-47.0); HEMOGLOBIN 9.3 g/dl (12.0-16.0); LYMPHOCYTES # 0.5 10^3/ul (0.8-2.9); LYMPHOCYTES % 4.4 % (15.0-51.0); MEAN CORPUSCULAR HEMOGLOBIN 30.8 pg (29.0-33.0); MEAN CORPUSCULAR HGB CONC 32.6 g/dl (32.0-37.0); MEAN CORPUSCULAR VOLUME 94.4 fl (82.0-101.0); MEAN PLATELET VOLUME 10.2 fl (7.4-10.4); MONOCYTE # 0.8 10^3/ul (0.3-0.9); MONOCYTES % 6.4 % (0.0-11.0); NEUTROPHIL # 10.6 10^3/ul (1.6-7.5); NEUTROPHILS % 87.8 % (39.0-77.0); NUCLEATED RED BLOOD CELLS% 0.3 /100WBC (0.0-0.0); PLATELET COUNT 172 10^3/UL (140-415); RED BLOOD COUNT 3.02 10^6/ul (4.20-5.40); RED CELL DISTRIBUTION WIDTH 15.4 % (11.5-14.5)
[2018-04-05 19:28] LABS: POSITIVE DIFF @See below
[2018-04-05 19:40] LABS: INR 1.94; PROTIME 22.2 Sec (11.9-14.9); PT RATIO 1.7
[2018-04-05 20:30] LABS: PARTIAL THROMBOPLASTIN TIME > 180.0 Sec (23.0-35.0)
[2018-04-05] MEDS: LATANOPROST 0.005% 2.5 ML OPH BOTH EYES (21:16)
[2018-04-05] MEDS: ATORVASTATIN 10 MG TAB PO (21:16)
[2018-04-05] MEDS: SOD CHLORIDE 0.9% 500 ML IV (21:16)
[2018-04-05] MEDS: CEFTRIAXONE 1 GM/50 ML (PMX) 50 ML IVPB (21:16)
[2018-04-05] MEDS: METOCLOPRAMIDE 10 MG INJ IV (21:16)
[2018-04-05] MEDS: morphine 2 MG INJ IV (21:52)
[2018-04-05 23:08] LABS: PARTIAL THROMBOPLASTIN TIME 57.8 Sec (23.0-35.0)
[2018-04-05] MEDS: HEPARIN 25000 UNITS/250 ML 250 ML IV (23:42)
[2018-04-06 00:36] LABS: ADD MAN DIFF? NO
[2018-04-06 00:49] LABS: WHITE BLOOD COUNT 13.5 10^3/ul (4.8-10.8)
[2018-04-06 00:49] LABS: ABNORMAL IP MESSAGE 1; BASOPHILS % 0.1 % (0.0-2.0); LYMPHOCYTES # 0.6 10^3/ul (0.8-2.9); LYMPHOCYTES % 4.2 % (15.0-51.0); MEAN CORPUSCULAR HEMOGLOBIN 30.9 pg (29.0-33.0); MEAN CORPUSCULAR HGB CONC 33.3 g/dl (32.0-37.0); MEAN CORPUSCULAR VOLUME 92.8 fl (82.0-101.0); MEAN PLATELET VOLUME 10.2 fl (7.4-10.4); MONOCYTE # 0.8 10^3/ul (0.3-0.9); MONOCYTES % 5.6 % (0.0-11.0); NEUTROPHILS % 88.9 % (39.0-77.0); NUCLEATED RED BLOOD CELLS # 0.1 10^3/ul (0.0-0.0); NUCLEATED RED BLOOD CELLS% 0.4 /100WBC (0.0-0.0); PLATELET COUNT 185 10^3/UL (140-415); RED BLOOD COUNT 2.91 10^6/ul (4.20-5.40); RED CELL DISTRIBUTION WIDTH 15.4 % (11.5-14.5)
[2018-04-06 00:51] LABS: POSITIVE DIFF @See below
[2018-04-06] MEDS: morphine 2 MG INJ IV ×2 (02:19→05:55)
[2018-04-06] MEDS: ONDANSETRON 4 MG INJ IV ×3 (02:19→20:36)
[2018-04-06 04:33] LABS: ADD MAN DIFF? NO
[2018-04-06 04:35] LABS: ABNORMAL IP MESSAGE 1; BASOPHILS % 0.3 % (0.0-2.0); HEMATOCRIT 26.5 % (37.0-47.0); HEMOGLOBIN 8.7 g/dl (12.0-16.0); LYMPHOCYTES # 0.6 10^3/ul (0.8-2.9); LYMPHOCYTES % 4.5 % (15.0-51.0); MEAN CORPUSCULAR HEMOGLOBIN 30.6 pg (29.0-33.0); MEAN CORPUSCULAR HGB CONC 32.8 g/dl (32.0-37.0); MEAN CORPUSCULAR VOLUME 93.3 fl (82.0-101.0); MONOCYTE # 0.8 10^3/ul (0.3-0.9); MONOCYTES % 6.1 % (0.0-11.0); NEUTROPHIL # 11.1 10^3/ul (1.6-7.5); NEUTROPHILS % 87.3 % (39.0-77.0); NUCLEATED RED BLOOD CELLS # 0.1 10^3/ul (0.0-0.0); NUCLEATED RED BLOOD CELLS% 0.5 /100WBC (0.0-0.0); PLATELET COUNT 180 10^3/UL (140-415); RED BLOOD COUNT 2.84 10^6/ul (4.20-5.40); RED CELL DISTRIBUTION WIDTH 15.3 % (11.5-14.5)
[2018-04-06 04:35] LABS: WHITE BLOOD COUNT 12.8 10^3/ul (4.8-10.8)
[2018-04-06 04:44] LABS: POSITIVE DIFF @See below
[2018-04-06 04:54] LABS: ANION GAP 12 (5-13); BLOOD UREA NITROGEN 59 mg/dl (7-20); CALCIUM 8.4 mg/dl (8.4-10.2); CARBON DIOXIDE 22 mmol/L (21-31); CHLORIDE 104 mmol/L (97-110); CREATININE 5.06 mg/dl (0.44-1.00); Estimated GFR 9 mL/min (>60); GLUCOSE 124 mg/dl (70-220); POTASSIUM 5.4 mmol/L (3.5-5.1); SODIUM 138 mmol/L (135-144)
[2018-04-06 04:55] LABS: INR 1.61; PARTIAL THROMBOPLASTIN TIME 34.8 Sec (23.0-35.0); PROTIME 19.2 Sec (11.9-14.9); PT RATIO 1.5
[2018-04-06] MEDS: HEPARIN 1000 UNITS/ML 10 ML INJ IV (05:52)
[2018-04-06] MEDS: METOCLOPRAMIDE 10 MG INJ IV ×2 (05:54→20:36)
[2018-04-06] MEDS: PANTOPRAZOLE (EC) 40 MG TAB PO (05:54)
[2018-04-06] MEDS: LEVOTHYROXINE 50 MCG TAB PO (06:00)
[2018-04-06] MEDS: SOD CHLORIDE 0.9% 1,000 ML IV (10:27)
[2018-04-06] MEDS: BUMETANIDE 1 MG INJ IV (10:28)
[2018-04-06] MEDS: MOMETASONE 0.24 GM INHALER INH (10:28)
[2018-04-06 11:51] LABS: PARTIAL THROMBOPLASTIN TIME 48.5 Sec (23.0-35.0)
[2018-04-06 12:37] LABS: PROCALCITONIN 0.26 ng/mL (<0.10)
[2018-04-06] MEDS: FENTAnyl 50 MCG/ML VIAL (12:49)
[2018-04-06] MEDS: MIDAZOLAM 1 MG/ML 2 ML INJ (12:49)
[2018-04-06] MEDS: LIDOCAINE 1% (MPF) 5 ML VIAL (13:09)
[2018-04-06 14:37] LABS: HEPATITIS B SURFACE ANTIGEN NEGATIVE (NEGATIVE)
[2018-04-06] MEDS: CEFTRIAXONE 1 GM/50 ML (PMX) 50 ML IVPB (20:36)
[2018-04-06] MEDS: ATORVASTATIN 10 MG TAB PO (20:37)
[2018-04-06] MEDS: LATANOPROST 0.005% 2.5 ML OPH BOTH EYES (20:37)
[2018-04-06 20:52] LABS: ADD MAN DIFF? NO
[2018-04-06 20:54] LABS: WHITE BLOOD COUNT 13.1 10^3/ul (4.8-10.8)
[2018-04-06 20:54] LABS: ABNORMAL IP MESSAGE 1; BASOPHILS % 0.2 % (0.0-2.0); EOSINOPHILS % 0.1 % (0.0-7.0); HEMOGLOBIN 8.5 g/dl (12.0-16.0); LYMPHOCYTES # 0.6 10^3/ul (0.8-2.9); LYMPHOCYTES % 4.5 % (15.0-51.0); MEAN CORPUSCULAR HEMOGLOBIN 30.8 pg (29.0-33.0); MEAN CORPUSCULAR HGB CONC 32.7 g/dl (32.0-37.0); MEAN CORPUSCULAR VOLUME 94.2 fl (82.0-101.0); MEAN PLATELET VOLUME 10.1 fl (7.4-10.4); MONOCYTE # 0.9 10^3/ul (0.3-0.9); MONOCYTES % 6.6 % (0.0-11.0); NEUTROPHIL # 11.2 10^3/ul (1.6-7.5); NEUTROPHILS % 85.8 % (39.0-77.0); NUCLEATED RED BLOOD CELLS # 0.1 10^3/ul (0.0-0.0); NUCLEATED RED BLOOD CELLS% 1.1 /100WBC (0.0-0.0); PLATELET COUNT 202 10^3/UL (140-415); RED BLOOD COUNT 2.76 10^6/ul (4.20-5.40); RED CELL DISTRIBUTION WIDTH 15.7 % (11.5-14.5)
[2018-04-06 20:59] LABS: POSITIVE DIFF @See below
[2018-04-06 21:10] LABS: PARTIAL THROMBOPLASTIN TIME 55.6 Sec (23.0-35.0)
[2018-04-06 21:33] LABS: ANION GAP 14 (5-13); BLOOD UREA NITROGEN 67 mg/dl (7-20); CALCIUM 8.1 mg/dl (8.4-10.2); CARBON DIOXIDE 23 mmol/L (21-31); CHLORIDE 101 mmol/L (97-110); GLUCOSE 107 mg/dl (70-220); SODIUM 138 mmol/L (135-144)
[2018-04-06 21:39] LABS: Estimated GFR 9 mL/min (>60)
[2018-04-07] MEDS: ONDANSETRON 4 MG INJ IV ×2 (00:59→06:05)
[2018-04-07] MEDS: SOD CHLORIDE 0.9% 1,000 ML IV (04:06)
[2018-04-07 05:38] LABS: ADD MAN DIFF? NO
[2018-04-07 05:58] LABS: WHITE BLOOD COUNT 11.6 10^3/ul (4.8-10.8)
[2018-04-07 05:58] LABS: ABNORMAL IP MESSAGE 1; BASOPHILS % 0.3 % (0.0-2.0); EOSINOPHILS % 0.2 % (0.0-7.0); HEMATOCRIT 24.8 % (37.0-47.0); LYMPHOCYTES # 0.4 10^3/ul (0.8-2.9); LYMPHOCYTES % 3.8 % (15.0-51.0); MEAN CORPUSCULAR HEMOGLOBIN 30.8 pg (29.0-33.0); MEAN CORPUSCULAR HGB CONC 32.3 g/dl (32.0-37.0); MEAN CORPUSCULAR VOLUME 95.4 fl (82.0-101.0); MEAN PLATELET VOLUME 10.2 fl (7.4-10.4); MONOCYTE # 0.8 10^3/ul (0.3-0.9); MONOCYTES % 6.8 % (0.0-11.0); NEUTROPHIL # 9.8 10^3/ul (1.6-7.5); NEUTROPHILS % 84.7 % (39.0-77.0); NUCLEATED RED BLOOD CELLS # 0.1 10^3/ul (0.0-0.0); NUCLEATED RED BLOOD CELLS% 1.2 /100WBC (0.0-0.0); PLATELET COUNT 190 10^3/UL (140-415); RED CELL DISTRIBUTION WIDTH 15.7 % (11.5-14.5)
[2018-04-07] MEDS: PANTOPRAZOLE (EC) 40 MG TAB PO (06:05)
[2018-04-07] MEDS: LEVOTHYROXINE 50 MCG TAB PO (06:05)
[2018-04-07 06:06] LABS: INR 1.55; PROTIME 18.7 Sec (11.9-14.9); PT RATIO 1.5
[2018-04-07] MEDS: METOCLOPRAMIDE 10 MG INJ IV (06:06)
[2018-04-07 06:09] LABS: ANION GAP 12 (5-13); BLOOD UREA NITROGEN 74 mg/dl (7-20); CALCIUM 8.3 mg/dl (8.4-10.2); CARBON DIOXIDE 23 mmol/L (21-31); CHLORIDE 103 mmol/L (97-110); GLUCOSE 101 mg/dl (70-220); POTASSIUM 4.8 mmol/L (3.5-5.1); SODIUM 138 mmol/L (135-144)
[2018-04-07 06:17] LABS: Estimated GFR 8 mL/min (>60); POSITIVE DIFF @See below
[2018-04-07 06:23] LABS: CREATININE 5.47 mg/dl (0.44-1.00)
[2018-04-07] MEDS: MOMETASONE 0.24 GM INHALER INH (10:05)
[2018-04-07] MEDS ORDERED: METOCLOPRAMIDE 10 MG INJ IV (11:00)
[2018-04-07 11:13] LABS: MAGNESIUM 2.1 mg/dl (1.7-2.5)
[2018-04-07 12:59] LABS: HEMATOCRIT 24.3 % (37.0-47.0); HEMOGLOBIN 7.9 g/dl (12.0-16.0)
[2018-04-07] MEDS: HEPARIN 1000 UNITS/ML 10 ML INJ IV (13:18)
[2018-04-07] MEDS: HEPARIN 25000 UNITS/250 ML 250 ML IV (13:25)
[2018-04-07] MEDS: SOD CHLORIDE 0.9% 500 ML IV (13:47)
[2018-04-07] MEDS: ALTEPLASE (CATHFLO) 2 MG INJ ZFS (13:49)
[2018-04-07] MEDS: LIDOCAINE 1% (MPF) 5 ML VIAL SC (13:50)
[2018-04-07] MEDS ORDERED: POLYETHYLENE GLYCOL 17 GM PACKET PO (14:00)
[2018-04-07] MEDS ORDERED: BISACODYL 10 MG SUPP PR (14:00)
[2018-04-07] MEDS: FUROSEMIDE 40 MG INJ IV (15:02)
[2018-04-07 16:06] LABS: CREATININE, RANDOM URINE 6 mg/dL (20-275); MICROALBUMIN 79.6 mg/dL; MICROALBUMIN/CREATININE RATIO 13267 (<30)
[2018-04-07] MEDS: NYSTATIN SUSP 5 ML CUP PO ×2 (18:11→21:00)
[2018-04-07 19:06] LABS: HEMATOCRIT 22.1 % (37.0-47.0); HEMOGLOBIN 7.2 g/dl (12.0-16.0)
[2018-04-07 19:21] LABS: OCCULT BLOOD STOOL NEGATIVE (NEGATIVE)
[2018-04-07 19:39] LABS: PARTIAL THROMBOPLASTIN TIME > 180.0 Sec (23.0-35.0)
[2018-04-07] MEDS: ATORVASTATIN 10 MG TAB PO (21:00)
[2018-04-07] MEDS: CEFTRIAXONE 1 GM/50 ML (PMX) 50 ML IVPB (21:00)
[2018-04-07] MEDS: SENNA/DOCUSATE NA (8.6MG/50MG) TAB PO (21:00)
[2018-04-07] MEDS: LATANOPROST 0.005% 2.5 ML OPH BOTH EYES (21:00)
[2018-04-07] MEDS: morphine 2 MG INJ IV (22:38)
[2018-04-07 23:13] LABS: PARTIAL THROMBOPLASTIN TIME 50.9 Sec (23.0-35.0)
[2018-04-08 00:59] LABS: PARTIAL THROMBOPLASTIN TIME 38.4 Sec (23.0-35.0)
[2018-04-08 01:30] LABS: IMMEDIATE SPIN CROSSMATCH 1 1
[2018-04-08 05:38] LABS: WHITE BLOOD COUNT 8.4 10^3/ul (4.8-10.8)
[2018-04-08 05:38] LABS: ABNORMAL IP MESSAGE 1; HEMATOCRIT 24.5 % (37.0-47.0); HEMOGLOBIN 8.2 g/dl (12.0-16.0); MEAN CORPUSCULAR HEMOGLOBIN 31.8 pg (29.0-33.0); MEAN CORPUSCULAR HGB CONC 33.5 g/dl (32.0-37.0); NUCLEATED RED BLOOD CELLS% 0.7 /100WBC (0.0-0.0); PLATELET COUNT 147 10^3/UL (140-415); RED BLOOD COUNT 2.58 10^6/ul (4.20-5.40)
[2018-04-08 05:46] LABS: ADD MAN DIFF? YES; POSITIVE DIFF @See below
[2018-04-08] MEDS: PANTOPRAZOLE (EC) 40 MG TAB PO (06:09)
[2018-04-08] MEDS: LEVOTHYROXINE 50 MCG TAB PO (06:10)
[2018-04-08 07:14] LABS: ANION GAP 10 (5-13); BLOOD UREA NITROGEN 81 mg/dl (7-20); CALCIUM 7.6 mg/dl (8.4-10.2); CARBON DIOXIDE 23 mmol/L (21-31); CHLORIDE 105 mmol/L (97-110); GLUCOSE 103 mg/dl (70-220); MAGNESIUM 2.1 mg/dl (1.7-2.5); PHOSPHORUS 6.7 mg/dl (2.5-4.9); POTASSIUM 4.1 mmol/L (3.5-5.1); SODIUM 138 mmol/L (135-144)
[2018-04-08 07:20] LABS: Estimated GFR 9 mL/min (>60)
[2018-04-08 07:24] LABS: CREATININE 5.04 mg/dl (0.44-1.00)
[2018-04-08] MEDS: SENNA/DOCUSATE NA (8.6MG/50MG) TAB PO ×2 (08:25→20:37)
[2018-04-08] MEDS: MOMETASONE 0.24 GM INHALER INH (08:25)
[2018-04-08] MEDS: NYSTATIN SUSP 5 ML CUP PO ×4 (08:25→20:42)
[2018-04-08 09:41] LABS: ANISOCYTOSIS 1+ (0-0); BAND NEUTROPHILS #M 0.5 10^3/ul (0.0-0.6); BAND NEUTROPHILS % (M) 6 % (0-4); EOSINOPHILS % (M) 2 % (0-7); ERYTHROBLAST% (NRBC) (M) 1 % (0-0); GIANT THROMBO% (M) 2 % (0-0); LYMPHOCYTES #M 0.2 10^3/ul (0.8-2.9); LYMPHOCYTES % (M) 3 % (15-51); MICROCYTOSIS 1+ (0-0); MONOCYTES % (M) 1 % (0-11); MYELOCYTES #M 0.2 10^3/ul (0.0-0.0); MYELOCYTES % (M) 3 % (0-0); PLATELET ESTIMATE NORMAL; POLYCHROMASIA 3+ (0-0); SEG NEUT #M 7.2 10^3/ul (1.6-7.5); SEGMENTED NEUTROPHILS (M) % 85 % (39-77)
[2018-04-08 15:08] LABS: ABNORMAL IP MESSAGE 1; HEMATOCRIT 25.2 % (37.0-47.0); HEMOGLOBIN 8.4 g/dl (12.0-16.0); MEAN CORPUSCULAR HEMOGLOBIN 31.7 pg (29.0-33.0); MEAN CORPUSCULAR HGB CONC 33.3 g/dl (32.0-37.0); MEAN CORPUSCULAR VOLUME 95.1 fl (82.0-101.0); MEAN PLATELET VOLUME 9.4 fl (7.4-10.4); NUCLEATED RED BLOOD CELLS% 0.5 /100WBC (0.0-0.0); PLATELET COUNT 144 10^3/UL (140-415); RED BLOOD COUNT 2.65 10^6/ul (4.20-5.40); RED CELL DISTRIBUTION WIDTH 15.4 % (11.5-14.5)
[2018-04-08 15:08] LABS: WHITE BLOOD COUNT 9.8 10^3/ul (4.8-10.8)
[2018-04-08 15:28] LABS: INR 1.32; PROTIME 16.5 Sec (11.9-14.9); PT RATIO 1.3
[2018-04-08 15:30] LABS: ADD MAN DIFF? YES; POSITIVE DIFF @See below
[2018-04-08 15:40] LABS: PARTIAL THROMBOPLASTIN TIME 71.9 Sec (23.0-35.0)
[2018-04-08 18:49] LABS: ANISOCYTOSIS 1+ (0-0); BAND NEUTROPHILS #M 0.7 10^3/ul (0.0-0.6); BAND NEUTROPHILS % (M) 8 % (0-4); EOSINOPHILS % (M) 1 % (0-7); GIANT THROMBO% (M) 1 % (0-0); LYMPHOCYTES #M 0.3 10^3/ul (0.8-2.9); LYMPHOCYTES % (M) 4 % (15-51); METAMYELOCYTES %M 1 % (0-0); MICROCYTOSIS 1+ (0-0); MONOCYTES % (M) 1 % (0-11); MYELOCYTES #M 0.1 10^3/ul (0.0-0.0); MYELOCYTES % (M) 2 % (0-0); PLATELET ESTIMATE NORMAL; POLYCHROMASIA 1+ (0-0); SEG NEUT #M 8.2 10^3/ul (1.6-7.5); SEGMENTED NEUTROPHILS (M) % 83 % (39-77); SMUDGE%M 2 % (0-0)
[2018-04-08] MEDS: CEFTRIAXONE 1 GM/50 ML (PMX) 50 ML IVPB (19:36)
[2018-04-08] MEDS: morphine 2 MG INJ IV (19:36)
[2018-04-08] MEDS: ATORVASTATIN 10 MG TAB PO (20:42)
[2018-04-08] MEDS: LATANOPROST 0.005% 2.5 ML OPH BOTH EYES (20:42)
[2018-04-08 22:47] LABS: PARTIAL THROMBOPLASTIN TIME 46.1 Sec (23.0-35.0)
[2018-04-09] MEDS: HEPARIN 25000 UNITS/250 ML 250 ML IV (00:34)
[2018-04-09 04:56] LABS: ABNORMAL IP MESSAGE 1; HEMATOCRIT 24.9 % (37.0-47.0); HEMOGLOBIN 8.3 g/dl (12.0-16.0); MEAN CORPUSCULAR HEMOGLOBIN 31.4 pg (29.0-33.0); MEAN CORPUSCULAR HGB CONC 33.3 g/dl (32.0-37.0); MEAN CORPUSCULAR VOLUME 94.3 fl (82.0-101.0); NUCLEATED RED BLOOD CELLS% 0.3 /100WBC (0.0-0.0); PLATELET COUNT 161 10^3/UL (140-415); RED BLOOD COUNT 2.64 10^6/ul (4.20-5.40); RED CELL DISTRIBUTION WIDTH 15.5 % (11.5-14.5)
[2018-04-09 04:56] LABS: WHITE BLOOD COUNT 11.7 10^3/ul (4.8-10.8)
[2018-04-09 05:13] LABS: PARTIAL THROMBOPLASTIN TIME 59.8 Sec (23.0-35.0)
[2018-04-09 05:18] LABS: ANION GAP 11 (5-13); BLOOD UREA NITROGEN 83 mg/dl (7-20); CARBON DIOXIDE 25 mmol/L (21-31); CHLORIDE 100 mmol/L (97-110); GLUCOSE 114 mg/dl (70-220); MAGNESIUM 1.9 mg/dl (1.7-2.5); POTASSIUM 3.6 mmol/L (3.5-5.1); SODIUM 136 mmol/L (135-144)
[2018-04-09 05:23] LABS: Estimated GFR 9 mL/min (>60)
[2018-04-09 05:40] LABS: ADD MAN DIFF? YES; POSITIVE DIFF @See below
[2018-04-09 05:42] LABS: CREATININE 4.94 mg/dl (0.44-1.00)
[2018-04-09] MEDS: LEVOTHYROXINE 50 MCG TAB PO ×2 (06:02→09:04)
[2018-04-09] MEDS: PANTOPRAZOLE (EC) 40 MG TAB PO (06:02)
[2018-04-09] MEDS: SENNA/DOCUSATE NA (8.6MG/50MG) TAB PO ×2 (09:00→20:49)
[2018-04-09] MEDS: NYSTATIN SUSP 5 ML CUP PO ×4 (09:04→20:49)
[2018-04-09] MEDS: SEVELAMER CARBONATE 800 MG TABLET PO ×3 (09:04→17:46)
[2018-04-09] MEDS: MOMETASONE 0.24 GM INHALER INH (09:04)
[2018-04-09 11:20] LABS: PARTIAL THROMBOPLASTIN TIME 45.5 Sec (23.0-35.0)
[2018-04-09] MEDS: FUROSEMIDE 40 MG INJ IV (12:22)
[2018-04-09] MEDS: HEPARIN 1000 UNITS/ML 10 ML INJ IV (12:25)
[2018-04-09 18:16] LABS: INR 1.18; PROTIME 15.1 Sec (11.9-14.9); PT RATIO 1.2
[2018-04-09 18:48] LABS: PARTIAL THROMBOPLASTIN TIME > 180.0 Sec (23.0-35.0)
[2018-04-09 19:43] LABS: INR 1.11; PROTIME 14.4 Sec (11.9-14.9); PT RATIO 1.1
[2018-04-09 19:58] LABS: PARTIAL THROMBOPLASTIN TIME 83.6 Sec (23.0-35.0)
[2018-04-09] MEDS: ATORVASTATIN 10 MG TAB PO (20:49)
[2018-04-09] MEDS: LATANOPROST 0.005% 2.5 ML OPH BOTH EYES (20:53)
[2018-04-10 02:20] LABS: PROTIME 14.3 Sec (11.9-14.9); PT RATIO 1.1
[2018-04-10 02:21] LABS: PARTIAL THROMBOPLASTIN TIME 59.8 Sec (23.0-35.0)
[2018-04-10] MEDS: PANTOPRAZOLE (EC) 40 MG TAB PO (05:25)
[2018-04-10 05:35] LABS: WHITE BLOOD COUNT 11.8 10^3/ul (4.8-10.8)
[2018-04-10 05:35] LABS: ABNORMAL IP MESSAGE 1; HEMATOCRIT 24.1 % (37.0-47.0); MEAN CORPUSCULAR HEMOGLOBIN 31.3 pg (29.0-33.0); MEAN CORPUSCULAR HGB CONC 33.2 g/dl (32.0-37.0); MEAN CORPUSCULAR VOLUME 94.1 fl (82.0-101.0); MEAN PLATELET VOLUME 10.3 fl (7.4-10.4); PLATELET COUNT 172 10^3/UL (140-415); RED BLOOD COUNT 2.56 10^6/ul (4.20-5.40); RED CELL DISTRIBUTION WIDTH 15.5 % (11.5-14.5)
[2018-04-10 05:40] LABS: ADD MAN DIFF? YES; POSITIVE DIFF @See below
[2018-04-10 06:11] LABS: ANION GAP 11 (5-13); BLOOD UREA NITROGEN 85 mg/dl (7-20); CALCIUM 7.7 mg/dl (8.4-10.2); CARBON DIOXIDE 24 mmol/L (21-31); CHLORIDE 100 mmol/L (97-110); CREATININE 4.41 mg/dl (0.44-1.00); Estimated GFR 10 mL/min (>60); GLUCOSE 109 mg/dl (70-220); MAGNESIUM 1.8 mg/dl (1.7-2.5); PHOSPHORUS 6.5 mg/dl (2.5-4.9); POTASSIUM 3.1 mmol/L (3.5-5.1); SODIUM 135 mmol/L (135-144)
[2018-04-10 07:48] LABS: BAND NEUTROPHILS #M 1.5 10^3/ul (0.0-0.6); BAND NEUTROPHILS % (M) 13 % (0-4); EOSINOPHILS % (M) 2 % (0-7); LYMPHOCYTES #M 0.7 10^3/ul (0.8-2.9); LYMPHOCYTES % (M) 6 % (15-51); METAMYELOCYTES #M 0.1 10^3/ul (0.0-0.0); METAMYELOCYTES %M 1 % (0-0); MONOCYTE #M 0.3 10^3/ul (0.3-0.9); MONOCYTES % (M) 3 % (0-11); MYELOCYTES #M 0.1 10^3/ul (0.0-0.0); MYELOCYTES % (M) 1 % (0-0); PLATELET ESTIMATE NORMAL; POLYCHROMASIA 2+ (0-0); REACTIVE LYMPHOCYTES #M 0.3 10^3/ul (0.0-0.0); REACTIVE LYMPHOCYTES% (M) 3 % (0-0); SEG NEUT #M 8.6 10^3/ul (1.6-7.5); SEGMENTED NEUTROPHILS (M) % 71 % (39-77); SMUDGE%M 10 % (0-0)
[2018-04-10 08:31] LABS: ADD MAN DIFF? NO
[2018-04-10 08:34] LABS: ABNORMAL IP MESSAGE 1; BASOPHILS % 0.2 % (0.0-2.0); EOSINOPHILS # 0.2 10^3/ul (0.0-0.5); EOSINOPHILS % 1.4 % (0.0-7.0); HEMATOCRIT 25.7 % (37.0-47.0); HEMOGLOBIN 8.5 g/dl (12.0-16.0); LYMPHOCYTES # 0.8 10^3/ul (0.8-2.9); LYMPHOCYTES % 6.4 % (15.0-51.0); MEAN CORPUSCULAR HGB CONC 33.1 g/dl (32.0-37.0); MEAN CORPUSCULAR VOLUME 93.8 fl (82.0-101.0); MONOCYTE # 0.8 10^3/ul (0.3-0.9); MONOCYTES % 6.3 % (0.0-11.0); NEUTROPHIL # 9.2 10^3/ul (1.6-7.5); NEUTROPHILS % 75.3 % (39.0-77.0); NUCLEATED RED BLOOD CELLS% 0.2 /100WBC (0.0-0.0); PLATELET COUNT 178 10^3/UL (140-415); RED BLOOD COUNT 2.74 10^6/ul (4.20-5.40); RED CELL DISTRIBUTION WIDTH 15.8 % (11.5-14.5)
[2018-04-10 08:34] LABS: WHITE BLOOD COUNT 12.3 10^3/ul (4.8-10.8)
[2018-04-10 08:36] LABS: POSITIVE DIFF @See below
[2018-04-10] MEDS: SENNA/DOCUSATE NA (8.6MG/50MG) TAB PO ×3 (08:48→21:00)
[2018-04-10] MEDS: SEVELAMER CARBONATE 800 MG TABLET PO ×3 (08:48→17:38)
[2018-04-10] MEDS: NYSTATIN SUSP 5 ML CUP PO ×4 (08:48→21:17)
[2018-04-10] MEDS: POTASSIUM CHLORIDE (SR) 20 MEQ TAB PO (08:49)
[2018-04-10] MEDS: MOMETASONE 0.24 GM INHALER INH (08:49)
[2018-04-10] MEDS: LEVOTHYROXINE 50 MCG TAB PO (08:49)
[2018-04-10 08:52] LABS: INR 1.07; PT RATIO 1.1
[2018-04-10 08:54] LABS: PARTIAL THROMBOPLASTIN TIME 66.8 Sec (23.0-35.0)
[2018-04-10 09:29] LABS: ANISOCYTOSIS 1+ (0-0); BAND NEUTROPHILS #M 0.6 10^3/ul (0.0-0.6); BAND NEUTROPHILS % (M) 5 % (0-4); EOSINOPHILS % (M) 1 % (0-7); ERYTHROBLAST% (NRBC) (M) 1 % (0-0); HYPOCHROMASIA 1+ (0-0); LYMPHOCYTES #M 0.4 10^3/ul (0.8-2.9); LYMPHOCYTES % (M) 4 % (15-51); MICROCYTOSIS 1+ (0-0); MONOCYTE #M 0.7 10^3/ul (0.3-0.9); MONOCYTES % (M) 6 % (0-11); MYELOCYTES #M 0.1 10^3/ul (0.0-0.0); MYELOCYTES % (M) 1 % (0-0); PLATELET ESTIMATE NORMAL; POLYCHROMASIA 1+ (0-0); PROMYELOCYTES #M 0.1 10^3/ul (0-0); PROMYELOCYTES % (M) 1 % (0-0); SEG NEUT #M 10.2 10^3/ul (1.6-7.5); SEGMENTED NEUTROPHILS (M) % 82 % (39-77); SMUDGE%M 3 % (0-0)
[2018-04-10] MEDS: HEPARIN 25000 UNITS/250 ML 250 ML IV (11:05)
[2018-04-10 16:08] LABS: INR 1.12; PROTIME 14.5 Sec (11.9-14.9); PT RATIO 1.1
[2018-04-10 16:09] LABS: PARTIAL THROMBOPLASTIN TIME 66.8 Sec (23.0-35.0)
[2018-04-10] MEDS: ATORVASTATIN 10 MG TAB PO (21:17)
[2018-04-11] MEDS: LATANOPROST 0.005% 2.5 ML OPH BOTH EYES ×2 (00:34→21:00)
[2018-04-11 05:03] LABS: WHITE BLOOD COUNT 12.6 10^3/ul (4.8-10.8)
[2018-04-11 05:03] LABS: ABNORMAL IP MESSAGE 1; HEMOGLOBIN 8.7 g/dl (12.0-16.0); MEAN CORPUSCULAR HEMOGLOBIN 31.1 pg (29.0-33.0); MEAN CORPUSCULAR HGB CONC 33.5 g/dl (32.0-37.0); MEAN CORPUSCULAR VOLUME 92.9 fl (82.0-101.0); MEAN PLATELET VOLUME 10.1 fl (7.4-10.4); NUCLEATED RED BLOOD CELLS% 0.3 /100WBC (0.0-0.0); PLATELET COUNT 228 10^3/UL (140-415); RED CELL DISTRIBUTION WIDTH 15.9 % (11.5-14.5)
[2018-04-11 05:05] LABS: POSITIVE DIFF @See below
[2018-04-11 05:06] LABS: ADD MAN DIFF? YES
[2018-04-11 05:14] LABS: ANION GAP 11 (5-13); BLOOD UREA NITROGEN 77 mg/dl (7-20); CALCIUM 8.1 mg/dl (8.4-10.2); CARBON DIOXIDE 27 mmol/L (21-31); CHLORIDE 99 mmol/L (97-110); CREATININE 3.82 mg/dl (0.44-1.00); Estimated GFR 12 mL/min (>60); GLUCOSE 111 mg/dl (70-220); MAGNESIUM 1.7 mg/dl (1.7-2.5); PHOSPHORUS 5.2 mg/dl (2.5-4.9); POTASSIUM 3.2 mmol/L (3.5-5.1); SODIUM 137 mmol/L (135-144)
[2018-04-11 05:27] LABS: INR 1.04; PROTIME 13.7 Sec (11.9-14.9); PT RATIO 1.1
[2018-04-11 05:28] LABS: PARTIAL THROMBOPLASTIN TIME 68.6 Sec (23.0-35.0)
[2018-04-11] MEDS: PANTOPRAZOLE (EC) 40 MG TAB PO (06:06)
[2018-04-11] MEDS: LEVOTHYROXINE 50 MCG TAB PO (06:07)
[2018-04-11 07:34] LABS: ANISOCYTOSIS 1+ (0-0); BAND NEUTROPHILS #M 2.3 10^3/ul (0.0-0.6); BAND NEUTROPHILS % (M) 19 % (0-4); LYMPHOCYTES #M 0.6 10^3/ul (0.8-2.9); LYMPHOCYTES % (M) 5 % (15-51); METAMYELOCYTES #M 0.1 10^3/ul (0.0-0.0); METAMYELOCYTES %M 1 % (0-0); MONOCYTE #M 0.2 10^3/ul (0.3-0.9); MONOCYTES % (M) 2 % (0-11); MYELOCYTES #M 0.1 10^3/ul (0.0-0.0); MYELOCYTES % (M) 1 % (0-0); OVALOCYTES 1+ (0-0); PLATELET ESTIMATE NORMAL; POLYCHROMASIA 2+ (0-0); SEG NEUT #M 9.4 10^3/ul (1.6-7.5); SEGMENTED NEUTROPHILS (M) % 72 % (39-77)
[2018-04-11] MEDS: SEVELAMER CARBONATE 800 MG TABLET PO ×3 (08:46→17:29)
[2018-04-11] MEDS: SENNA/DOCUSATE NA (8.6MG/50MG) TAB PO ×2 (08:46→20:21)
[2018-04-11] MEDS: NYSTATIN SUSP 5 ML CUP PO ×4 (08:46→20:20)
[2018-04-11] MEDS: MOMETASONE 0.24 GM INHALER INH (10:28)
[2018-04-11 12:25] LABS: PLATELET COUNT 217 10^3/UL (140-415)
[2018-04-11 12:44] LABS: PROTIME 13.3 Sec (11.9-14.9)
[2018-04-11 12:46] LABS: PARTIAL THROMBOPLASTIN TIME 46.4 Sec (23.0-35.0); THROMBIN TIME 41.5 SEC (13.8-19.1)
[2018-04-11] MEDS: ALBUMIN HUMAN 25% 50 ML IV (13:39)
[2018-04-11] MEDS: HEPARIN 25000 UNITS/250 ML 250 ML IV (15:54)
[2018-04-11] MEDS: FUROSEMIDE 40 MG INJ IM (16:44)
[2018-04-11] MEDS: POTASSIUM CHLORIDE (SR) 20 MEQ TAB PO (17:29)
[2018-04-11] MEDS: WARFARIN 3 MG TAB PO (18:12)
[2018-04-11 19:00] LABS: PARTIAL THROMBOPLASTIN TIME > 180.0 Sec (23.0-35.0)
[2018-04-11] MEDS: ATORVASTATIN 10 MG TAB PO (20:21)
[2018-04-11 22:00] LABS: PARTIAL THROMBOPLASTIN TIME > 180.0 Sec (23.0-35.0)
[2018-04-11 23:45] LABS: PARTIAL THROMBOPLASTIN TIME 122.1 Sec (23.0-35.0)
[2018-04-12] MEDS: ACETAMINOPHEN 325 MG TAB PO (01:38)
[2018-04-12 02:39] LABS: PARTIAL THROMBOPLASTIN TIME 33.2 Sec (23.0-35.0)
[2018-04-12] MEDS: HEPARIN 25000 UNITS/250 ML 250 ML IV ×2 (03:35→09:59)
[2018-04-12] MEDS: PANTOPRAZOLE (EC) 40 MG TAB PO (05:27)
[2018-04-12] MEDS: LEVOTHYROXINE 50 MCG TAB PO (05:31)
[2018-04-12 08:20] LABS: ABNORMAL IP MESSAGE 1; HEMATOCRIT 21.8 % (37.0-47.0); HEMOGLOBIN 7.2 g/dl (12.0-16.0); MEAN CORPUSCULAR HEMOGLOBIN 30.9 pg (29.0-33.0); MEAN CORPUSCULAR VOLUME 93.6 fl (82.0-101.0); MEAN PLATELET VOLUME 10.1 fl (7.4-10.4); NUCLEATED RED BLOOD CELLS% 0.2 /100WBC (0.0-0.0); PLATELET COUNT 224 10^3/UL (140-415); RED BLOOD COUNT 2.33 10^6/ul (4.20-5.40); RED CELL DISTRIBUTION WIDTH 15.9 % (11.5-14.5)
[2018-04-12 08:20] LABS: WHITE BLOOD COUNT 12.4 10^3/ul (4.8-10.8)
[2018-04-12 08:33] LABS: ADD MAN DIFF? YES; POSITIVE DIFF @See below
[2018-04-12] MEDS: SEVELAMER CARBONATE 800 MG TABLET PO ×3 (08:40→17:09)
[2018-04-12] MEDS: MOMETASONE 0.24 GM INHALER INH (08:41)
[2018-04-12 08:43] LABS: PARTIAL THROMBOPLASTIN TIME 43.7 Sec (23.0-35.0)
[2018-04-12] MEDS: NYSTATIN SUSP 5 ML CUP PO ×4 (08:43→20:47)
[2018-04-12] MEDS: SENNA/DOCUSATE NA (8.6MG/50MG) TAB PO ×2 (08:43→20:52)
[2018-04-12 08:46] LABS: ANION GAP 10 (5-13); BLOOD UREA NITROGEN 72 mg/dl (7-20); CALCIUM 7.9 mg/dl (8.4-10.2); CARBON DIOXIDE 26 mmol/L (21-31); CHLORIDE 99 mmol/L (97-110); CREATININE 2.66 mg/dl (0.44-1.00); Estimated GFR 18 mL/min (>60); GLUCOSE 124 mg/dl (70-220); MAGNESIUM 1.5 mg/dl (1.7-2.5); PHOSPHORUS 3.8 mg/dl (2.5-4.9); POTASSIUM 3.2 mmol/L (3.5-5.1); SODIUM 135 mmol/L (135-144)
[2018-04-12] MEDS: HEPARIN 1000 UNITS/ML 10 ML INJ IV (10:01)
[2018-04-12] MEDS: POTASSIUM CHLORIDE 50 ML IVPB ×2 (10:13→17:08)
[2018-04-12 10:45] LABS: ANISOCYTOSIS 1+ (0-0); BAND NEUTROPHILS #M 0.4 10^3/ul (0.0-0.6); BAND NEUTROPHILS % (M) 4 % (0-4); LYMPHOCYTES #M 1.2 10^3/ul (0.8-2.9); LYMPHOCYTES % (M) 10 % (15-51); MONOCYTE #M 0.1 10^3/ul (0.3-0.9); MONOCYTES % (M) 1 % (0-11); PLATELET ESTIMATE NORMAL; POIKILOCYTOSIS 1+ (0-0); POLYCHROMASIA 2+ (0-0); SEG NEUT #M 10.6 10^3/ul (1.6-7.5); SEGMENTED NEUTROPHILS (M) % 85 % (39-77); SMUDGE%M 4 % (0-0)
[2018-04-12 13:25] LABS: IMMEDIATE SPIN CROSSMATCH 1 1
[2018-04-12] MEDS: MAGNESIUM SULFATE 2 GM/50 ML 50 ML IVPB (15:12)
[2018-04-12] MEDS: WARFARIN 3 MG TAB PO (17:09)
[2018-04-12 20:37] LABS: HEMOGLOBIN 8.3 g/dl (12.0-16.0)
[2018-04-12] MEDS: ATORVASTATIN 10 MG TAB PO (20:47)
[2018-04-12] MEDS: LATANOPROST 0.005% 2.5 ML OPH BOTH EYES (20:51)
[2018-04-12 21:36] LABS: MAGNESIUM 2.3 mg/dl (1.7-2.5)
[2018-04-12 21:36] LABS: POTASSIUM 3.8 mmol/L (3.5-5.1)
[2018-04-13] MEDS: PANTOPRAZOLE (EC) 40 MG TAB PO (05:08)
[2018-04-13 05:16] LABS: ADD MAN DIFF? NO
[2018-04-13 05:29] LABS: BASOPHILS % 0.2 % (0.0-2.0); EOSINOPHILS # 0.1 10^3/ul (0.0-0.5); EOSINOPHILS % 0.8 % (0.0-7.0); HEMATOCRIT 24.5 % (37.0-47.0); HEMOGLOBIN 8.1 g/dl (12.0-16.0); LYMPHOCYTES # 0.8 10^3/ul (0.8-2.9); LYMPHOCYTES % 4.8 % (15.0-51.0); MEAN CORPUSCULAR HEMOGLOBIN 30.8 pg (29.0-33.0); MEAN CORPUSCULAR HGB CONC 33.1 g/dl (32.0-37.0); MEAN CORPUSCULAR VOLUME 93.2 fl (82.0-101.0); MONOCYTE # 0.8 10^3/ul (0.3-0.9); MONOCYTES % 5.2 % (0.0-11.0); NEUTROPHIL # 13.4 10^3/ul (1.6-7.5); NUCLEATED RED BLOOD CELLS% 0.1 /100WBC (0.0-0.0); PLATELET COUNT 216 10^3/UL (140-415); RED BLOOD COUNT 2.63 10^6/ul (4.20-5.40); RED CELL DISTRIBUTION WIDTH 16.2 % (11.5-14.5)
[2018-04-13 05:29] LABS: WHITE BLOOD COUNT 15.9 10^3/ul (4.8-10.8)
[2018-04-13 06:02] LABS: INR 1.14; PROTIME 14.7 Sec (11.9-14.9); PT RATIO 1.1
[2018-04-13 06:03] LABS: ANION GAP 9 (5-13); BLOOD UREA NITROGEN 65 mg/dl (7-20); CALCIUM 8.1 mg/dl (8.4-10.2); CARBON DIOXIDE 26 mmol/L (21-31); CHLORIDE 100 mmol/L (97-110); CREATININE 1.98 mg/dl (0.44-1.00); Estimated GFR 26 mL/min (>60); GLUCOSE 120 mg/dl (70-220); POTASSIUM 3.8 mmol/L (3.5-5.1); SODIUM 135 mmol/L (135-144)
[2018-04-13 06:11] LABS: MAGNESIUM 2.2 mg/dl (1.7-2.5)
[2018-04-13] MEDS: LEVOTHYROXINE 50 MCG TAB PO (06:40)
[2018-04-13] MEDS: MOMETASONE 0.24 GM INHALER INH (08:19)
[2018-04-13] MEDS: SENNA/DOCUSATE NA (8.6MG/50MG) TAB PO ×2 (08:19→20:39)
[2018-04-13] MEDS: SEVELAMER CARBONATE 800 MG TABLET PO ×3 (08:19→17:10)
[2018-04-13] MEDS: NYSTATIN SUSP 5 ML CUP PO ×4 (08:19→20:39)
[2018-04-13] MEDS: WARFARIN 3 MG TAB PO (17:10)
[2018-04-13] MEDS: ATORVASTATIN 10 MG TAB PO (20:39)
[2018-04-13] MEDS: LATANOPROST 0.005% 2.5 ML OPH BOTH EYES (20:39)
[2018-04-14 05:20] LABS: ADD MAN DIFF? NO
[2018-04-14 05:32] LABS: WHITE BLOOD COUNT 15.6 10^3/ul (4.8-10.8)
[2018-04-14 05:32] LABS: ABNORMAL IP MESSAGE 1; BASOPHILS % 0.1 % (0.0-2.0); EOSINOPHILS # 0.1 10^3/ul (0.0-0.5); EOSINOPHILS % 0.6 % (0.0-7.0); HEMATOCRIT 23.5 % (37.0-47.0); HEMOGLOBIN 7.7 g/dl (12.0-16.0); LYMPHOCYTES # 0.6 10^3/ul (0.8-2.9); LYMPHOCYTES % 3.8 % (15.0-51.0); MEAN CORPUSCULAR HEMOGLOBIN 30.9 pg (29.0-33.0); MEAN CORPUSCULAR HGB CONC 32.8 g/dl (32.0-37.0); MEAN CORPUSCULAR VOLUME 94.4 fl (82.0-101.0); MEAN PLATELET VOLUME 10.2 fl (7.4-10.4); MONOCYTE # 0.9 10^3/ul (0.3-0.9); MONOCYTES % 5.8 % (0.0-11.0); NEUTROPHIL # 13.5 10^3/ul (1.6-7.5); NEUTROPHILS % 86.7 % (39.0-77.0); PLATELET COUNT 206 10^3/UL (140-415); RED BLOOD COUNT 2.49 10^6/ul (4.20-5.40); RED CELL DISTRIBUTION WIDTH 15.9 % (11.5-14.5)
[2018-04-14 05:47] LABS: POSITIVE DIFF @See below
[2018-04-14 05:49] LABS: INR 1.24; PARTIAL THROMBOPLASTIN TIME 30.7 Sec (23.0-35.0); PROTIME 15.7 Sec (11.9-14.9); PT RATIO 1.2
[2018-04-14] MEDS: PANTOPRAZOLE (EC) 40 MG TAB PO (06:02)
[2018-04-14] MEDS: LEVOTHYROXINE 50 MCG TAB PO (06:02)
[2018-04-14 06:06] LABS: ANION GAP 7 (5-13); BLOOD UREA NITROGEN 46 mg/dl (7-20); CALCIUM 8.1 mg/dl (8.4-10.2); CARBON DIOXIDE 27 mmol/L (21-31); CHLORIDE 100 mmol/L (97-110); CREATININE 1.73 mg/dl (0.44-1.00); Estimated GFR 30 mL/min (>60); GLUCOSE 132 mg/dl (70-220); POTASSIUM 3.9 mmol/L (3.5-5.1); SODIUM 134 mmol/L (135-144)
[2018-04-14] MEDS: SEVELAMER CARBONATE 800 MG TABLET PO ×3 (07:53→17:32)
[2018-04-14] MEDS: SENNA/DOCUSATE NA (8.6MG/50MG) TAB PO ×2 (09:00→21:00)
[2018-04-14] MEDS: NYSTATIN SUSP 5 ML CUP PO ×4 (09:12→21:01)
[2018-04-14] MEDS: MOMETASONE 0.24 GM INHALER INH (09:12)
[2018-04-14] MEDS ORDERED: METOPROLOL 5 MG INJ IV (10:30)
[2018-04-14] MEDS: ALBUMIN HUMAN 25% 50 ML IV (10:57)
[2018-04-14] MEDS: DIGOXIN 500 MCG INJ IV (10:58)
[2018-04-14] MEDS ORDERED: morphine LIQ (10 MG/5 ML) CUP PO (11:30)
[2018-04-14 15:56] LABS: ADD MAN DIFF? NO
[2018-04-14 15:59] LABS: ABNORMAL IP MESSAGE 1; BASOPHILS % 0.3 % (0.0-2.0); EOSINOPHILS # 0.1 10^3/ul (0.0-0.5); EOSINOPHILS % 0.5 % (0.0-7.0); HEMATOCRIT 23.1 % (37.0-47.0); HEMOGLOBIN 7.5 g/dl (12.0-16.0); LYMPHOCYTES # 0.5 10^3/ul (0.8-2.9); LYMPHOCYTES % 3.5 % (15.0-51.0); MEAN CORPUSCULAR HEMOGLOBIN 31.4 pg (29.0-33.0); MEAN CORPUSCULAR HGB CONC 32.5 g/dl (32.0-37.0); MEAN CORPUSCULAR VOLUME 96.7 fl (82.0-101.0); MEAN PLATELET VOLUME 9.9 fl (7.4-10.4); MONOCYTE # 0.9 10^3/ul (0.3-0.9); MONOCYTES % 5.7 % (0.0-11.0); NEUTROPHIL # 13.1 10^3/ul (1.6-7.5); NEUTROPHILS % 87.3 % (39.0-77.0); PLATELET COUNT 189 10^3/UL (140-415); RED BLOOD COUNT 2.39 10^6/ul (4.20-5.40); RED CELL DISTRIBUTION WIDTH 15.9 % (11.5-14.5)
[2018-04-14] MEDS ORDERED: WARFARIN 3 MG TAB PO (17:00)
[2018-04-14 17:21] LABS: HEMATOCRIT 23.2 % (37.0-47.0); HEMOGLOBIN 7.7 g/dl (12.0-16.0)
[2018-04-14] MEDS: WARFARIN 2 MG TAB PO (17:32)
[2018-04-14] MEDS: ATORVASTATIN 10 MG TAB PO (21:01)
[2018-04-14] MEDS: LATANOPROST 0.005% 2.5 ML OPH BOTH EYES (21:01)
[2018-04-14] MEDS: METOPROLOL 25 MG TAB PO (21:02)
[2018-04-15 05:16] LABS: ADD MAN DIFF? NO
[2018-04-15 05:19] LABS: WHITE BLOOD COUNT 12.6 10^3/ul (4.8-10.8)
[2018-04-15 05:19] LABS: ABNORMAL IP MESSAGE 1; BASOPHILS % 0.2 % (0.0-2.0); EOSINOPHILS # 0.1 10^3/ul (0.0-0.5); EOSINOPHILS % 0.7 % (0.0-7.0); HEMATOCRIT 22.7 % (37.0-47.0); HEMOGLOBIN 7.2 g/dl (12.0-16.0); LYMPHOCYTES # 0.5 10^3/ul (0.8-2.9); MEAN CORPUSCULAR HEMOGLOBIN 30.8 pg (29.0-33.0); MEAN CORPUSCULAR HGB CONC 31.7 g/dl (32.0-37.0); MEAN PLATELET VOLUME 9.7 fl (7.4-10.4); MONOCYTE # 0.8 10^3/ul (0.3-0.9); MONOCYTES % 6.1 % (0.0-11.0); NEUTROPHIL # 10.9 10^3/ul (1.6-7.5); NEUTROPHILS % 86.9 % (39.0-77.0); PLATELET COUNT 194 10^3/UL (140-415); RED BLOOD COUNT 2.34 10^6/ul (4.20-5.40); RED CELL DISTRIBUTION WIDTH 15.9 % (11.5-14.5)
[2018-04-15 05:27] LABS: PLATELET COUNT 200 10^3/UL (140-415)
[2018-04-15 05:29] LABS: POSITIVE DIFF @See below
[2018-04-15 05:40] LABS: PROTIME 16.3 Sec (11.9-14.9); PT RATIO 1.3
[2018-04-15 05:41] LABS: PARTIAL THROMBOPLASTIN TIME 31.6 Sec (23.0-35.0); THROMBIN TIME 15.2 SEC (13.8-19.1)
[2018-04-15 05:56] LABS: LACTIC ACID 1.6 mmol/L (0.5-2.0)
[2018-04-15 05:58] LABS: ANION GAP 9 (5-13); CARBON DIOXIDE 25 mmol/L (21-31); CHLORIDE 100 mmol/L (97-110); POTASSIUM 4.3 mmol/L (3.5-5.1); SODIUM 134 mmol/L (135-144)
[2018-04-15 06:06] LABS: ANION GAP 7 (5-13); BLOOD UREA NITROGEN 35 mg/dl (7-20); CALCIUM 8.2 mg/dl (8.4-10.2); CARBON DIOXIDE 26 mmol/L (21-31); CHLORIDE 102 mmol/L (97-110); CREATININE 1.51 mg/dl (0.44-1.00); Estimated GFR 35 mL/min (>60); GLUCOSE 131 mg/dl (70-220); MAGNESIUM 1.7 mg/dl (1.7-2.5); PHOSPHORUS 3.8 mg/dl (2.5-4.9); POTASSIUM 4.2 mmol/L (3.5-5.1); SODIUM 135 mmol/L (135-144)
[2018-04-15] MEDS: LEVOTHYROXINE 50 MCG TAB PO ×2 (06:06→09:59)
[2018-04-15] MEDS: PANTOPRAZOLE (EC) 40 MG TAB PO (06:06)
[2018-04-15] MEDS: SENNA/DOCUSATE NA (8.6MG/50MG) TAB PO ×3 (09:00→21:00)
[2018-04-15] MEDS: METOPROLOL 25 MG TAB PO ×2 (09:58→20:46)
[2018-04-15] MEDS: SEVELAMER CARBONATE 800 MG TABLET PO ×3 (09:58→17:35)
[2018-04-15] MEDS: NYSTATIN SUSP 5 ML CUP PO ×4 (09:59→20:46)
[2018-04-15] MEDS: MOMETASONE 0.24 GM INHALER INH (13:11)
[2018-04-15] MEDS: FUROSEMIDE 20 MG INJ IV ×2 (13:11→20:44)
[2018-04-15 16:11] LABS: AHG CROSSMATCH 1 1
[2018-04-15] MEDS: WARFARIN 5 MG TAB PO (19:10)
[2018-04-15] MEDS: ATORVASTATIN 10 MG TAB PO (20:45)
[2018-04-15] MEDS: LATANOPROST 0.005% 2.5 ML OPH BOTH EYES (20:45)
[2018-04-16 05:06] LABS: ADD MAN DIFF? NO
[2018-04-16 05:14] LABS: ABNORMAL IP MESSAGE 1; BASOPHILS % 0.4 % (0.0-2.0); EOSINOPHILS # 0.1 10^3/ul (0.0-0.5); EOSINOPHILS % 0.9 % (0.0-7.0); HEMATOCRIT 26.2 % (37.0-47.0); HEMOGLOBIN 8.5 g/dl (12.0-16.0); LYMPHOCYTES # 0.5 10^3/ul (0.8-2.9); LYMPHOCYTES % 4.8 % (15.0-51.0); MEAN CORPUSCULAR HGB CONC 32.4 g/dl (32.0-37.0); MEAN CORPUSCULAR VOLUME 95.6 fl (82.0-101.0); MEAN PLATELET VOLUME 9.8 fl (7.4-10.4); MONOCYTE # 0.7 10^3/ul (0.3-0.9); NEUTROPHIL # 8.7 10^3/ul (1.6-7.5); NEUTROPHILS % 84.5 % (39.0-77.0); PLATELET COUNT 203 10^3/UL (140-415); RED BLOOD COUNT 2.74 10^6/ul (4.20-5.40); RED CELL DISTRIBUTION WIDTH 15.9 % (11.5-14.5)
[2018-04-16 05:14] LABS: WHITE BLOOD COUNT 10.3 10^3/ul (4.8-10.8)
[2018-04-16 05:38] LABS: POSITIVE DIFF @See below
[2018-04-16 05:40] LABS: ANION GAP 6 (5-13); BLOOD UREA NITROGEN 31 mg/dl (7-20); CALCIUM 8.2 mg/dl (8.4-10.2); CARBON DIOXIDE 28 mmol/L (21-31); CHLORIDE 103 mmol/L (97-110); Estimated GFR 38 mL/min (>60); GLUCOSE 121 mg/dl (70-220); MAGNESIUM 1.6 mg/dl (1.7-2.5); PHOSPHORUS 4.2 mg/dl (2.5-4.9); POTASSIUM 3.9 mmol/L (3.5-5.1); SODIUM 137 mmol/L (135-144)
[2018-04-16] MEDS: LEVOTHYROXINE 50 MCG TAB PO (05:57)
[2018-04-16] MEDS: PANTOPRAZOLE (EC) 40 MG TAB PO (05:57)
[2018-04-16] MEDS: FUROSEMIDE 20 MG INJ IV (08:06)
[2018-04-16] MEDS: SEVELAMER CARBONATE 800 MG TABLET PO ×3 (08:06→17:24)
[2018-04-16] MEDS: NYSTATIN SUSP 5 ML CUP PO ×5 (08:06→20:57)
[2018-04-16] MEDS: MAGNESIUM SULFATE 2 GM/50 ML 50 ML IVPB (08:06)
[2018-04-16] MEDS: MOMETASONE 0.24 GM INHALER INH (08:07)
[2018-04-16] MEDS: METOPROLOL 25 MG TAB PO ×3 (08:07→20:57)
[2018-04-16] MEDS: SENNA/DOCUSATE NA (8.6MG/50MG) TAB PO ×3 (08:07→20:57)
[2018-04-16 10:21] LABS: INR 1.44; PROTIME 17.6 Sec (11.9-14.9); PT RATIO 1.4
[2018-04-16] MEDS ORDERED: HEPARIN 1000 UNITS/ML 10 ML INJ IV ×2 (12:30→16:30)
[2018-04-16] MEDS ORDERED: morphine 2 MG INJ IV (16:00)
[2018-04-16] MEDS: HEPARIN 25000 UNITS/250 ML 250 ML IV (16:37)
[2018-04-16] MEDS: WARFARIN 5 MG TAB PO (17:24)
[2018-04-16] MEDS: ATORVASTATIN 10 MG TAB PO ×2 (20:48→20:57)
[2018-04-16] MEDS: LATANOPROST 0.005% 2.5 ML OPH BOTH EYES (21:08)
[2018-04-17] MEDS: PANTOPRAZOLE (EC) 40 MG TAB PO (05:28)
[2018-04-17 06:00] LABS: ADD MAN DIFF? NO
[2018-04-17 06:04] LABS: WHITE BLOOD COUNT 6.8 10^3/ul (4.8-10.8)
[2018-04-17 06:04] LABS: ABNORMAL IP MESSAGE 1; BASOPHILS % 0.6 % (0.0-2.0); EOSINOPHILS # 0.1 10^3/ul (0.0-0.5); EOSINOPHILS % 1.3 % (0.0-7.0); HEMATOCRIT 25.8 % (37.0-47.0); HEMOGLOBIN 8.3 g/dl (12.0-16.0); LYMPHOCYTES # 0.5 10^3/ul (0.8-2.9); LYMPHOCYTES % 7.4 % (15.0-51.0); MEAN CORPUSCULAR HEMOGLOBIN 30.5 pg (29.0-33.0); MEAN CORPUSCULAR HGB CONC 32.2 g/dl (32.0-37.0); MEAN CORPUSCULAR VOLUME 94.9 fl (82.0-101.0); MEAN PLATELET VOLUME 9.7 fl (7.4-10.4); MONOCYTE # 0.5 10^3/ul (0.3-0.9); MONOCYTES % 7.2 % (0.0-11.0); NEUTROPHIL # 5.6 10^3/ul (1.6-7.5); NEUTROPHILS % 81.6 % (39.0-77.0); PLATELET COUNT 194 10^3/UL (140-415); RED BLOOD COUNT 2.72 10^6/ul (4.20-5.40); RED CELL DISTRIBUTION WIDTH 15.5 % (11.5-14.5)
[2018-04-17 06:08] LABS: POSITIVE DIFF @See below
[2018-04-17 06:24] LABS: PROTIME 18.2 Sec (11.9-14.9); PT RATIO 1.4
[2018-04-17 06:32] LABS: ANION GAP 7 (5-13); BLOOD UREA NITROGEN 29 mg/dl (7-20); CARBON DIOXIDE 26 mmol/L (21-31); CHLORIDE 103 mmol/L (97-110); CREATININE 1.31 mg/dl (0.44-1.00); Estimated GFR 41 mL/min (>60); GLUCOSE 121 mg/dl (70-220); MAGNESIUM 1.9 mg/dl (1.7-2.5); PHOSPHORUS 4.1 mg/dl (2.5-4.9); POTASSIUM 3.7 mmol/L (3.5-5.1); SODIUM 136 mmol/L (135-144)
[2018-04-17] MEDS: LEVOTHYROXINE 50 MCG TAB PO ×2 (06:54→08:09)
[2018-04-17] MEDS: NYSTATIN SUSP 5 ML CUP PO ×4 (08:10→20:41)
[2018-04-17] MEDS: POTASSIUM CHLORIDE (SR) 20 MEQ TAB PO (08:10)
[2018-04-17] MEDS: MOMETASONE 0.24 GM INHALER INH (08:10)
[2018-04-17] MEDS: METOPROLOL 25 MG TAB PO ×2 (08:11→20:41)
[2018-04-17] MEDS: SENNA/DOCUSATE NA (8.6MG/50MG) TAB PO ×2 (08:11→20:42)
[2018-04-17] MEDS: FUROSEMIDE 20 MG INJ IV ×2 (08:17→17:28)
[2018-04-17] MEDS: WARFARIN 5 MG TAB PO (17:28)
[2018-04-17 19:30] LABS: ADD UMIC YES; UR ASCORBIC ACID NEGATIVE (NEGATIVE); UR BILIRUBIN (Dip) NEGATIVE (NEGATIVE); UR BLOOD (Dip) 3+ mg/dL (NEGATIVE); UR BUDDING YEAST FEW /HPF (NONE SEEN); UR CLARITY CLEAR (CLEAR); UR COLOR STRAW (YELLOW); UR GLUCOSE (Dip) NEGATIVE (NEGATIVE); UR KETONES (Dip) NEGATIVE (NEGATIVE); UR LEUKOCYTE ESTERASE (Dip) 1+ Leu/ul (NEGATIVE); UR NITRITE (Dip) NEGATIVE (NEGATIVE); UR RBC > 182 /HPF (0-5); UR SPECIFIC GRAVITY (Dip) 1.006 (1.003-1.030); UR TOTAL PROTEIN (Dip) NEGATIVE (NEGATIVE); UR UROBILINOGEN (Dip) NEGATIVE (NEGATIVE); UR WBC 19 /HPF (0-5)
[2018-04-17] MEDS: LATANOPROST 0.005% 2.5 ML OPH BOTH EYES (20:41)
[2018-04-17] MEDS: ATORVASTATIN 10 MG TAB PO (20:41)
[2018-04-18 05:17] LABS: ADD MAN DIFF? NO
[2018-04-18 05:19] LABS: WHITE BLOOD COUNT 4.8 10^3/ul (4.8-10.8)
[2018-04-18 05:19] LABS: ABNORMAL IP MESSAGE 1; BASOPHILS % 0.4 % (0.0-2.0); EOSINOPHILS # 0.1 10^3/ul (0.0-0.5); EOSINOPHILS % 1.7 % (0.0-7.0); HEMATOCRIT 24.8 % (37.0-47.0); HEMOGLOBIN 7.9 g/dl (12.0-16.0); LYMPHOCYTES # 0.5 10^3/ul (0.8-2.9); LYMPHOCYTES % 10.2 % (15.0-51.0); MEAN CORPUSCULAR HEMOGLOBIN 30.5 pg (29.0-33.0); MEAN CORPUSCULAR HGB CONC 31.9 g/dl (32.0-37.0); MEAN CORPUSCULAR VOLUME 95.8 fl (82.0-101.0); MEAN PLATELET VOLUME 10.1 fl (7.4-10.4); MONOCYTE # 0.3 10^3/ul (0.3-0.9); MONOCYTES % 6.9 % (0.0-11.0); NEUTROPHIL # 3.8 10^3/ul (1.6-7.5); NEUTROPHILS % 78.5 % (39.0-77.0); PLATELET COUNT 187 10^3/UL (140-415); RED BLOOD COUNT 2.59 10^6/ul (4.20-5.40); RED CELL DISTRIBUTION WIDTH 14.9 % (11.5-14.5)
[2018-04-18 05:32] LABS: POSITIVE DIFF @See below
[2018-04-18 05:36] LABS: PROTIME 18.2 Sec (11.9-14.9); PT RATIO 1.4
[2018-04-18 05:37] LABS: PARTIAL THROMBOPLASTIN TIME 34.3 Sec (23.0-35.0)
[2018-04-18] MEDS: FUROSEMIDE 20 MG INJ IV ×2 (06:02→17:22)
[2018-04-18] MEDS: PANTOPRAZOLE (EC) 40 MG TAB PO (06:02)
[2018-04-18] MEDS: LEVOTHYROXINE 50 MCG TAB PO (06:02)
[2018-04-18 06:08] LABS: ANION GAP 7 (5-13); BLOOD UREA NITROGEN 28 mg/dl (7-20); CALCIUM 7.9 mg/dl (8.4-10.2); CARBON DIOXIDE 29 mmol/L (21-31); CHLORIDE 101 mmol/L (97-110); CREATININE 1.08 mg/dl (0.44-1.00); Estimated GFR 51 mL/min (>60); GLUCOSE 108 mg/dl (70-220); MAGNESIUM 1.7 mg/dl (1.7-2.5); PHOSPHORUS 3.8 mg/dl (2.5-4.9); POTASSIUM 3.9 mmol/L (3.5-5.1); SODIUM 137 mmol/L (135-144)
[2018-04-18] MEDS: SENNA/DOCUSATE NA (8.6MG/50MG) TAB PO ×2 (07:54→20:19)
[2018-04-18] MEDS: NYSTATIN SUSP 5 ML CUP PO ×4 (08:23→20:25)
[2018-04-18] MEDS: METOPROLOL 25 MG TAB PO ×2 (08:23→20:25)
[2018-04-18] MEDS: MOMETASONE 0.24 GM INHALER INH (09:00)
[2018-04-18] MEDS: HEPARIN 25000 UNITS/250 ML 250 ML IV ×2 (11:26→20:26)
[2018-04-18] MEDS: WARFARIN 3 MG TAB PO (17:23)
[2018-04-18 18:02] LABS: ADD MAN DIFF? NO
[2018-04-18 18:04] LABS: ABNORMAL IP MESSAGE 1; BASOPHILS % 0.6 % (0.0-2.0); EOSINOPHILS # 0.1 10^3/ul (0.0-0.5); EOSINOPHILS % 2.8 % (0.0-7.0); HEMATOCRIT 25.5 % (37.0-47.0); HEMOGLOBIN 8.2 g/dl (12.0-16.0); LYMPHOCYTES # 0.5 10^3/ul (0.8-2.9); LYMPHOCYTES % 10.2 % (15.0-51.0); MEAN CORPUSCULAR HEMOGLOBIN 30.7 pg (29.0-33.0); MEAN CORPUSCULAR HGB CONC 32.2 g/dl (32.0-37.0); MEAN CORPUSCULAR VOLUME 95.5 fl (82.0-101.0); MEAN PLATELET VOLUME 9.7 fl (7.4-10.4); MONOCYTE # 0.4 10^3/ul (0.3-0.9); MONOCYTES % 7.4 % (0.0-11.0); NEUTROPHIL # 3.9 10^3/ul (1.6-7.5); PLATELET COUNT 183 10^3/UL (140-415); RED BLOOD COUNT 2.67 10^6/ul (4.20-5.40); RED CELL DISTRIBUTION WIDTH 14.7 % (11.5-14.5)
[2018-04-18 18:09] LABS: POSITIVE DIFF @See below
[2018-04-18] MEDS: ATORVASTATIN 10 MG TAB PO (20:25)
[2018-04-18] MEDS: LATANOPROST 0.005% 2.5 ML OPH BOTH EYES (20:28)
[2018-04-18 23:43] LABS: PARTIAL THROMBOPLASTIN TIME 67.6 Sec (23.0-35.0)
[2018-04-19 04:44] LABS: ADD MAN DIFF? NO
[2018-04-19 04:49] LABS: ABNORMAL IP MESSAGE 1; BASOPHILS % 0.4 % (0.0-2.0); EOSINOPHILS # 0.1 10^3/ul (0.0-0.5); EOSINOPHILS % 2.2 % (0.0-7.0); HEMATOCRIT 25.1 % (37.0-47.0); LYMPHOCYTES # 0.5 10^3/ul (0.8-2.9); LYMPHOCYTES % 10.4 % (15.0-51.0); MEAN CORPUSCULAR HEMOGLOBIN 30.5 pg (29.0-33.0); MEAN CORPUSCULAR HGB CONC 31.9 g/dl (32.0-37.0); MEAN CORPUSCULAR VOLUME 95.8 fl (82.0-101.0); MEAN PLATELET VOLUME 9.7 fl (7.4-10.4); MONOCYTE # 0.4 10^3/ul (0.3-0.9); NEUTROPHIL # 3.9 10^3/ul (1.6-7.5); PLATELET COUNT 179 10^3/UL (140-415); RED BLOOD COUNT 2.62 10^6/ul (4.20-5.40); RED CELL DISTRIBUTION WIDTH 14.5 % (11.5-14.5)
[2018-04-19 04:54] LABS: POSITIVE DIFF @See below
[2018-04-19 05:05] LABS: ANION GAP 7 (5-13); BLOOD UREA NITROGEN 25 mg/dl (7-20); CARBON DIOXIDE 30 mmol/L (21-31); CHLORIDE 100 mmol/L (97-110); CREATININE 1.05 mg/dl (0.44-1.00); Estimated GFR 53 mL/min (>60); GLUCOSE 132 mg/dl (70-220); MAGNESIUM 1.5 mg/dl (1.7-2.5); PHOSPHORUS 3.6 mg/dl (2.5-4.9); SODIUM 137 mmol/L (135-144)
[2018-04-19 05:07] LABS: PARTIAL THROMBOPLASTIN TIME 68.3 Sec (23.0-35.0)
[2018-04-19 05:18] LABS: POTASSIUM 3.5 mmol/L (3.5-5.1)
[2018-04-19] MEDS: FUROSEMIDE 20 MG INJ IV ×2 (06:01→17:39)
[2018-04-19] MEDS: LEVOTHYROXINE 50 MCG TAB PO (06:01)
[2018-04-19] MEDS: PANTOPRAZOLE (EC) 40 MG TAB PO (06:01)
[2018-04-19] MEDS: MAGNESIUM SULFATE 2 GM/50 ML 50 ML IVPB (08:12)
[2018-04-19] MEDS: POTASSIUM CHLORIDE (SR) 20 MEQ TAB PO (08:12)
[2018-04-19] MEDS: SENNA/DOCUSATE NA (8.6MG/50MG) TAB PO ×2 (09:00→20:33)
[2018-04-19] MEDS: NYSTATIN SUSP 5 ML CUP PO ×4 (09:36→20:32)
[2018-04-19] MEDS: METOPROLOL 25 MG TAB PO ×2 (09:37→20:32)
[2018-04-19] MEDS: MOMETASONE 0.24 GM INHALER INH (09:37)
[2018-04-19 13:02] LABS: INR 1.51; PROTIME 18.3 Sec (11.9-14.9); PT RATIO 1.4
[2018-04-19 14:51] LABS: PARTIAL THROMBOPLASTIN TIME 72.1 Sec (23.0-35.0)
[2018-04-19] MEDS: WARFARIN 2 MG TAB PO (17:38)
[2018-04-19] MEDS: WARFARIN 5 MG TAB PO (17:38)
[2018-04-19] MEDS: ATORVASTATIN 10 MG TAB PO (20:31)
[2018-04-19] MEDS: LATANOPROST 0.005% 2.5 ML OPH BOTH EYES (20:32)
[2018-04-19 21:12] LABS: PARTIAL THROMBOPLASTIN TIME 69.7 Sec (23.0-35.0)
[2018-04-20] MEDS: HEPARIN 25000 UNITS/250 ML 250 ML IV (01:27)
[2018-04-20 04:48] LABS: ADD MAN DIFF? NO
[2018-04-20 04:51] LABS: BASOPHILS % 0.5 % (0.0-2.0); EOSINOPHILS # 0.1 10^3/ul (0.0-0.5); EOSINOPHILS % 2.3 % (0.0-7.0); HEMATOCRIT 25.5 % (37.0-47.0); HEMOGLOBIN 8.2 g/dl (12.0-16.0); LYMPHOCYTES # 0.6 10^3/ul (0.8-2.9); LYMPHOCYTES % 13.9 % (15.0-51.0); MEAN CORPUSCULAR HEMOGLOBIN 30.9 pg (29.0-33.0); MEAN CORPUSCULAR HGB CONC 32.2 g/dl (32.0-37.0); MEAN CORPUSCULAR VOLUME 96.2 fl (82.0-101.0); MEAN PLATELET VOLUME 10.1 fl (7.4-10.4); MONOCYTE # 0.4 10^3/ul (0.3-0.9); MONOCYTES % 8.8 % (0.0-11.0); NEUTROPHIL # 3.1 10^3/ul (1.6-7.5); NEUTROPHILS % 72.6 % (39.0-77.0); PLATELET COUNT 178 10^3/UL (140-415); RED BLOOD COUNT 2.65 10^6/ul (4.20-5.40); RED CELL DISTRIBUTION WIDTH 14.6 % (11.5-14.5)
[2018-04-20 04:51] LABS: WHITE BLOOD COUNT 4.3 10^3/ul (4.8-10.8)
[2018-04-20 05:18] LABS: INR 1.55; PROTIME 18.7 Sec (11.9-14.9); PT RATIO 1.5
[2018-04-20 05:20] LABS: ANION GAP 9 (5-13); BLOOD UREA NITROGEN 26 mg/dl (7-20); CALCIUM 8.1 mg/dl (8.4-10.2); CARBON DIOXIDE 30 mmol/L (21-31); CHLORIDE 99 mmol/L (97-110); CREATININE 1.07 mg/dl (0.44-1.00); Estimated GFR 52 mL/min (>60); GLUCOSE 123 mg/dl (70-220); MAGNESIUM 1.7 mg/dl (1.7-2.5); PHOSPHORUS 3.7 mg/dl (2.5-4.9); POTASSIUM 3.6 mmol/L (3.5-5.1); SODIUM 138 mmol/L (135-144)
[2018-04-20] MEDS: FUROSEMIDE 20 MG INJ IV (05:31)
[2018-04-20] MEDS: PANTOPRAZOLE (EC) 40 MG TAB PO (05:31)
[2018-04-20] MEDS: LEVOTHYROXINE 50 MCG TAB PO (08:06)
[2018-04-20] MEDS: SENNA/DOCUSATE NA (8.6MG/50MG) TAB PO ×2 (08:43→20:35)
[2018-04-20] MEDS: NYSTATIN SUSP 5 ML CUP PO ×4 (08:43→20:35)
[2018-04-20] MEDS: POTASSIUM CHLORIDE (SR) 20 MEQ TAB PO (08:43)
[2018-04-20] MEDS: MAGNESIUM SULFATE 2 GM/50 ML 50 ML IVPB (08:43)
[2018-04-20] MEDS: MOMETASONE 0.24 GM INHALER INH (08:44)
[2018-04-20] MEDS: METOPROLOL 25 MG TAB PO ×2 (08:56→20:36)
[2018-04-20 13:00] LABS: PARTIAL THROMBOPLASTIN TIME 72.4 Sec (23.0-35.0)
[2018-04-20] MEDS: BUMETANIDE 0.5 MG TAB PO (18:06)
[2018-04-20] MEDS: WARFARIN 10 MG TAB PO (18:31)
[2018-04-20 19:42] LABS: PARTIAL THROMBOPLASTIN TIME 59.8 Sec (23.0-35.0)
[2018-04-20] MEDS: ATORVASTATIN 10 MG TAB PO (20:35)
[2018-04-20] MEDS: LATANOPROST 0.005% 2.5 ML OPH BOTH EYES (20:35)
[2018-04-21 04:16] LABS: ADD MAN DIFF? NO
[2018-04-21 04:18] LABS: ABNORMAL IP MESSAGE 1; BASOPHILS % 0.5 % (0.0-2.0); EOSINOPHILS # 0.1 10^3/ul (0.0-0.5); EOSINOPHILS % 3.7 % (0.0-7.0); HEMATOCRIT 23.8 % (37.0-47.0); HEMOGLOBIN 7.6 g/dl (12.0-16.0); LYMPHOCYTES # 0.6 10^3/ul (0.8-2.9); LYMPHOCYTES % 14.6 % (15.0-51.0); MEAN CORPUSCULAR HEMOGLOBIN 30.9 pg (29.0-33.0); MEAN CORPUSCULAR HGB CONC 31.9 g/dl (32.0-37.0); MEAN CORPUSCULAR VOLUME 96.7 fl (82.0-101.0); MONOCYTE # 0.3 10^3/ul (0.3-0.9); MONOCYTES % 7.8 % (0.0-11.0); NEUTROPHIL # 2.8 10^3/ul (1.6-7.5); NEUTROPHILS % 71.8 % (39.0-77.0); PLATELET COUNT 162 10^3/UL (140-415); RED BLOOD COUNT 2.46 10^6/ul (4.20-5.40); RED CELL DISTRIBUTION WIDTH 14.6 % (11.5-14.5)
[2018-04-21 04:18] LABS: WHITE BLOOD COUNT 3.8 10^3/ul (4.8-10.8)
[2018-04-21 04:36] LABS: POSITIVE DIFF @See below
[2018-04-21 04:38] LABS: INR 1.61; PROTIME 19.2 Sec (11.9-14.9); PT RATIO 1.5
[2018-04-21 04:39] LABS: PARTIAL THROMBOPLASTIN TIME 55.7 Sec (23.0-35.0)
[2018-04-21] MEDS: PANTOPRAZOLE (EC) 40 MG TAB PO (05:21)
[2018-04-21] MEDS: BUMETANIDE 0.5 MG TAB PO ×2 (05:21→17:39)
[2018-04-21] MEDS: LEVOTHYROXINE 50 MCG TAB PO (06:53)
[2018-04-21 08:10] LABS: ANION GAP 9 (5-13); Estimated GFR > 60 mL/min (>60)
[2018-04-21 08:13] LABS: BLOOD UREA NITROGEN 22 mg/dl (7-20); CARBON DIOXIDE 27 mmol/L (21-31); CHLORIDE 100 mmol/L (97-110); CREATININE 0.88 mg/dl (0.44-1.00); GLUCOSE 140 mg/dl (70-220); PHOSPHORUS 3.3 mg/dl (2.5-4.9); POTASSIUM 3.9 mmol/L (3.5-5.1); SODIUM 136 mmol/L (135-144)
[2018-04-21] MEDS: NYSTATIN SUSP 5 ML CUP PO ×4 (08:34→20:48)
[2018-04-21] MEDS: METOPROLOL 25 MG TAB PO ×3 (08:34→20:49)
[2018-04-21] MEDS: SENNA/DOCUSATE NA (8.6MG/50MG) TAB PO ×2 (08:34→20:49)
[2018-04-21] MEDS: MOMETASONE 0.24 GM INHALER INH (08:34)
[2018-04-21] MEDS: HEPARIN 25000 UNITS/250 ML 250 ML IV (08:44)
[2018-04-21 12:25] LABS: PARTIAL THROMBOPLASTIN TIME > 180.0 Sec (23.0-35.0)
[2018-04-21 14:38] LABS: ADD MAN DIFF? NO
[2018-04-21 14:56] LABS: BASOPHILS % 0.3 % (0.0-2.0); EOSINOPHILS # 0.1 10^3/ul (0.0-0.5); EOSINOPHILS % 3.2 % (0.0-7.0); HEMATOCRIT 25.4 % (37.0-47.0); HEMOGLOBIN 8.4 g/dl (12.0-16.0); LYMPHOCYTES # 0.6 10^3/ul (0.8-2.9); LYMPHOCYTES % 16.7 % (15.0-51.0); MEAN CORPUSCULAR HEMOGLOBIN 30.7 pg (29.0-33.0); MEAN CORPUSCULAR HGB CONC 33.1 g/dl (32.0-37.0); MEAN CORPUSCULAR VOLUME 92.7 fl (82.0-101.0); MEAN PLATELET VOLUME 9.5 fl (7.4-10.4); MONOCYTE # 0.3 10^3/ul (0.3-0.9); MONOCYTES % 6.7 % (0.0-11.0); NEUTROPHIL # 2.7 10^3/ul (1.6-7.5); NEUTROPHILS % 71.5 % (39.0-77.0); PLATELET COUNT 168 10^3/UL (140-415); RED BLOOD COUNT 2.74 10^6/ul (4.20-5.40); RED CELL DISTRIBUTION WIDTH 14.6 % (11.5-14.5)
[2018-04-21 14:56] LABS: WHITE BLOOD COUNT 3.7 10^3/ul (4.8-10.8)
[2018-04-21] MEDS: WARFARIN 10 MG TAB PO (17:39)
[2018-04-21] MEDS: ATORVASTATIN 10 MG TAB PO (20:48)
[2018-04-21] MEDS: LATANOPROST 0.005% 2.5 ML OPH BOTH EYES (20:57)
[2018-04-21 22:32] LABS: PARTIAL THROMBOPLASTIN TIME 51.6 Sec (23.0-35.0)
[2018-04-22 05:12] LABS: ADD MAN DIFF? NO
[2018-04-22 05:22] LABS: BASOPHILS % 0.2 % (0.0-2.0); EOSINOPHILS # 0.1 10^3/ul (0.0-0.5); HEMATOCRIT 24.3 % (37.0-47.0); HEMOGLOBIN 7.8 g/dl (12.0-16.0); LYMPHOCYTES # 0.7 10^3/ul (0.8-2.9); LYMPHOCYTES % 17.6 % (15.0-51.0); MEAN CORPUSCULAR HEMOGLOBIN 30.5 pg (29.0-33.0); MEAN CORPUSCULAR HGB CONC 32.1 g/dl (32.0-37.0); MEAN CORPUSCULAR VOLUME 94.9 fl (82.0-101.0); MEAN PLATELET VOLUME 10.1 fl (7.4-10.4); MONOCYTE # 0.3 10^3/ul (0.3-0.9); MONOCYTES % 6.4 % (0.0-11.0); NEUTROPHIL # 2.9 10^3/ul (1.6-7.5); NEUTROPHILS % 70.8 % (39.0-77.0); PLATELET COUNT 161 10^3/UL (140-415); RED BLOOD COUNT 2.56 10^6/ul (4.20-5.40); RED CELL DISTRIBUTION WIDTH 14.6 % (11.5-14.5)
[2018-04-22 05:43] LABS: INR 2.32; PROTIME 25.5 Sec (11.9-14.9)
[2018-04-22] MEDS: PANTOPRAZOLE (EC) 40 MG TAB PO (05:46)
[2018-04-22] MEDS: BUMETANIDE 0.5 MG TAB PO (05:46)
[2018-04-22 05:47] LABS: ANION GAP 8 (5-13); BLOOD UREA NITROGEN 21 mg/dl (7-20); CALCIUM 8.3 mg/dl (8.4-10.2); CARBON DIOXIDE 28 mmol/L (21-31); CHLORIDE 100 mmol/L (97-110); CREATININE 0.92 mg/dl (0.44-1.00); Estimated GFR > 60 mL/min (>60); GLUCOSE 111 mg/dl (70-220); MAGNESIUM 1.8 mg/dl (1.7-2.5); PHOSPHORUS 3.8 mg/dl (2.5-4.9); SODIUM 136 mmol/L (135-144)
[2018-04-22 06:09] LABS: PARTIAL THROMBOPLASTIN TIME 66.1 Sec (23.0-35.0)
[2018-04-22] MEDS: LEVOTHYROXINE 50 MCG TAB PO (06:36)
[2018-04-22] MEDS: MOMETASONE 0.24 GM INHALER INH (08:27)
[2018-04-22] MEDS: SENNA/DOCUSATE NA (8.6MG/50MG) TAB PO (08:28)
[2018-04-22] MEDS: METOPROLOL 25 MG TAB PO ×2 (08:28→20:41)
[2018-04-22] MEDS: NYSTATIN SUSP 5 ML CUP PO ×4 (08:28→20:40)
[2018-04-22] MEDS ORDERED: DOCUSATE SODIUM 100 MG CAP PO (12:00)
[2018-04-22 13:35] LABS: HEMATOCRIT 25.9 % (37.0-47.0); HEMOGLOBIN 8.5 g/dl (12.0-16.0)
[2018-04-22 13:53] LABS: INR 2.19; PROTIME 24.4 Sec (11.9-14.9); PT RATIO 1.9
[2018-04-22 13:55] LABS: PARTIAL THROMBOPLASTIN TIME 68.3 Sec (23.0-35.0)
[2018-04-22] MEDS ORDERED: PENDING SANTYL ORDER FOR WOUND CARE XX (16:00)
[2018-04-22] MEDS: WARFARIN 5 MG TAB PO (17:04)
[2018-04-22] MEDS: BUMETANIDE 1 MG INJ IV (17:04)
[2018-04-22] MEDS: LATANOPROST 0.005% 2.5 ML OPH BOTH EYES (20:40)
[2018-04-22] MEDS: ATORVASTATIN 10 MG TAB PO (20:40)
[2018-04-23 05:36] LABS: ADD MAN DIFF? NO
[2018-04-23 05:44] LABS: BASOPHILS % 0.5 % (0.0-2.0); EOSINOPHILS # 0.1 10^3/ul (0.0-0.5); EOSINOPHILS % 2.4 % (0.0-7.0); HEMATOCRIT 23.5 % (37.0-47.0); HEMOGLOBIN 7.6 g/dl (12.0-16.0); LYMPHOCYTES # 0.7 10^3/ul (0.8-2.9); LYMPHOCYTES % 16.1 % (15.0-51.0); MEAN CORPUSCULAR HEMOGLOBIN 30.6 pg (29.0-33.0); MEAN CORPUSCULAR HGB CONC 32.3 g/dl (32.0-37.0); MEAN CORPUSCULAR VOLUME 94.8 fl (82.0-101.0); MEAN PLATELET VOLUME 10.1 fl (7.4-10.4); MONOCYTE # 0.3 10^3/ul (0.3-0.9); MONOCYTES % 6.1 % (0.0-11.0); NEUTROPHILS % 73.2 % (39.0-77.0); PLATELET COUNT 159 10^3/UL (140-415); RED BLOOD COUNT 2.48 10^6/ul (4.20-5.40); RED CELL DISTRIBUTION WIDTH 14.7 % (11.5-14.5)
[2018-04-23 05:44] LABS: WHITE BLOOD COUNT 4.1 10^3/ul (4.8-10.8)
[2018-04-23] MEDS: PANTOPRAZOLE (EC) 40 MG TAB PO (05:56)
[2018-04-23] MEDS: LEVOTHYROXINE 50 MCG TAB PO (05:56)
[2018-04-23] MEDS: BUMETANIDE 1 MG INJ IV (05:56)
[2018-04-23 05:57] LABS: INR 2.43; PROTIME 26.5 Sec (11.9-14.9); PT RATIO 2.1
[2018-04-23 06:02] LABS: ANION GAP 9 (5-13); BLOOD UREA NITROGEN 23 mg/dl (7-20); CALCIUM 8.4 mg/dl (8.4-10.2); CARBON DIOXIDE 29 mmol/L (21-31); CHLORIDE 99 mmol/L (97-110); CREATININE 0.96 mg/dl (0.44-1.00); Estimated GFR 59 mL/min (>60); GLUCOSE 153 mg/dl (70-220); MAGNESIUM 1.5 mg/dl (1.7-2.5); PHOSPHORUS 3.5 mg/dl (2.5-4.9); POTASSIUM 3.5 mmol/L (3.5-5.1); SODIUM 137 mmol/L (135-144)
[2018-04-23] MEDS: MOMETASONE 0.24 GM INHALER INH (08:39)
[2018-04-23] MEDS: POTASSIUM CHLORIDE (SR) 20 MEQ TAB PO (08:39)
[2018-04-23] MEDS: MAGNESIUM SULFATE 2 GM/50 ML 50 ML IVPB (08:39)
[2018-04-23] MEDS: METOPROLOL 25 MG TAB PO ×2 (08:40→20:40)
[2018-04-23] MEDS: NYSTATIN SUSP 5 ML CUP PO ×4 (08:40→20:39)
[2018-04-23] MEDS ORDERED: DIGOXIN 500 MCG INJ IV (11:00)
[2018-04-23] MEDS: DIGOXIN 500 MCG INJ IV (11:54)
[2018-04-23 15:04] LABS: ADD MAN DIFF? NO
[2018-04-23 15:05] LABS: BASOPHILS % 0.5 % (0.0-2.0); EOSINOPHILS # 0.1 10^3/ul (0.0-0.5); EOSINOPHILS % 3.1 % (0.0-7.0); HEMATOCRIT 25.6 % (37.0-47.0); HEMOGLOBIN 8.3 g/dl (12.0-16.0); LYMPHOCYTES # 0.6 10^3/ul (0.8-2.9); LYMPHOCYTES % 15.3 % (15.0-51.0); MEAN CORPUSCULAR HEMOGLOBIN 30.5 pg (29.0-33.0); MEAN CORPUSCULAR HGB CONC 32.4 g/dl (32.0-37.0); MEAN CORPUSCULAR VOLUME 94.1 fl (82.0-101.0); MEAN PLATELET VOLUME 9.8 fl (7.4-10.4); MONOCYTE # 0.3 10^3/ul (0.3-0.9); MONOCYTES % 6.7 % (0.0-11.0); NEUTROPHILS % 71.8 % (39.0-77.0); PLATELET COUNT 168 10^3/UL (140-415); RED BLOOD COUNT 2.72 10^6/ul (4.20-5.40); RED CELL DISTRIBUTION WIDTH 14.8 % (11.5-14.5)
[2018-04-23 15:05] LABS: WHITE BLOOD COUNT 4.2 10^3/ul (4.8-10.8)
[2018-04-23] MEDS: BUMETANIDE 1 MG TAB PO (18:36)
[2018-04-23] MEDS: WARFARIN 5 MG TAB PO (18:36)
[2018-04-23] MEDS: AMIODARONE 200 MG TAB PO (20:39)
[2018-04-23] MEDS: ATORVASTATIN 10 MG TAB PO (20:39)
[2018-04-23] MEDS: LATANOPROST 0.005% 2.5 ML OPH BOTH EYES (20:40)
[2018-04-24] MEDS: BUMETANIDE 1 MG TAB PO ×2 (06:04→16:45)
[2018-04-24] MEDS: PANTOPRAZOLE (EC) 40 MG TAB PO (06:04)
[2018-04-24] MEDS: LEVOTHYROXINE 50 MCG TAB PO (06:04)
[2018-04-24 06:34] LABS: ADD MAN DIFF? NO
[2018-04-24 06:46] LABS: BASOPHILS % 0.4 % (0.0-2.0); EOSINOPHILS # 0.2 10^3/ul (0.0-0.5); EOSINOPHILS % 3.5 % (0.0-7.0); HEMATOCRIT 24.6 % (37.0-47.0); LYMPHOCYTES # 0.9 10^3/ul (0.8-2.9); LYMPHOCYTES % 18.6 % (15.0-51.0); MEAN CORPUSCULAR HEMOGLOBIN 30.9 pg (29.0-33.0); MEAN CORPUSCULAR HGB CONC 32.5 g/dl (32.0-37.0); MEAN PLATELET VOLUME 9.9 fl (7.4-10.4); MONOCYTE # 0.3 10^3/ul (0.3-0.9); MONOCYTES % 6.8 % (0.0-11.0); NEUTROPHIL # 3.3 10^3/ul (1.6-7.5); NEUTROPHILS % 67.6 % (39.0-77.0); PLATELET COUNT 187 10^3/UL (140-415); RED BLOOD COUNT 2.59 10^6/ul (4.20-5.40); RED CELL DISTRIBUTION WIDTH 14.8 % (11.5-14.5)
[2018-04-24 06:46] LABS: WHITE BLOOD COUNT 4.9 10^3/ul (4.8-10.8)
[2018-04-24 06:55] LABS: ANION GAP 3 (5-13); BLOOD UREA NITROGEN 22 mg/dl (7-20); CALCIUM 8.6 mg/dl (8.4-10.2); CARBON DIOXIDE 31 mmol/L (21-31); CHLORIDE 98 mmol/L (97-110); CREATININE 0.81 mg/dl (0.44-1.00); Estimated GFR > 60 mL/min (>60); GLUCOSE 106 mg/dl (70-220); MAGNESIUM 1.8 mg/dl (1.7-2.5); PHOSPHORUS 3.6 mg/dl (2.5-4.9); POTASSIUM 3.8 mmol/L (3.5-5.1); SODIUM 132 mmol/L (135-144)
[2018-04-24 07:00] LABS: INR 2.25; PROTIME 24.9 Sec (11.9-14.9); PT RATIO 1.9
[2018-04-24] MEDS: METOPROLOL 25 MG TAB PO ×2 (09:25→21:06)
[2018-04-24] MEDS: AMIODARONE 200 MG TAB PO ×2 (09:25→21:06)
[2018-04-24] MEDS: NYSTATIN SUSP 5 ML CUP PO ×4 (09:25→21:04)
[2018-04-24] MEDS: MOMETASONE 0.24 GM INHALER INH (11:24)
[2018-04-24] MEDS: WARFARIN 5 MG TAB PO (16:44)
[2018-04-24] MEDS: LATANOPROST 0.005% 2.5 ML OPH BOTH EYES (21:00)
[2018-04-24] MEDS: ATORVASTATIN 10 MG TAB PO (21:04)
[2018-04-25] MEDS: PANTOPRAZOLE (EC) 40 MG TAB PO (06:01)
[2018-04-25] MEDS: LEVOTHYROXINE 50 MCG TAB PO (06:01)
[2018-04-25] MEDS: BUMETANIDE 1 MG TAB PO (06:01)
[2018-04-25 06:28] LABS: ADD MAN DIFF? NO
[2018-04-25 06:50] LABS: PROTIME 25.4 Sec (11.9-14.9)
[2018-04-25 07:06] LABS: ANION GAP 7 (5-13); BLOOD UREA NITROGEN 25 mg/dl (7-20); CALCIUM 8.7 mg/dl (8.4-10.2); CARBON DIOXIDE 30 mmol/L (21-31); CHLORIDE 97 mmol/L (97-110); Estimated GFR > 60 mL/min (>60); GLUCOSE 116 mg/dl (70-220); MAGNESIUM 1.7 mg/dl (1.7-2.5); POTASSIUM 3.5 mmol/L (3.5-5.1); SODIUM 134 mmol/L (135-144)
[2018-04-25 07:58] LABS: WHITE BLOOD COUNT 5.2 10^3/ul (4.8-10.8)
[2018-04-25 07:58] LABS: BASOPHILS % 0.4 % (0.0-2.0); EOSINOPHILS # 0.2 10^3/ul (0.0-0.5); EOSINOPHILS % 4.6 % (0.0-7.0); HEMATOCRIT 26.8 % (37.0-47.0); HEMOGLOBIN 8.5 g/dl (12.0-16.0); LYMPHOCYTES # 1.1 10^3/ul (0.8-2.9); LYMPHOCYTES % 20.9 % (15.0-51.0); MEAN CORPUSCULAR HEMOGLOBIN 29.6 pg (29.0-33.0); MEAN CORPUSCULAR HGB CONC 31.7 g/dl (32.0-37.0); MEAN CORPUSCULAR VOLUME 93.4 fl (82.0-101.0); MONOCYTE # 0.4 10^3/ul (0.3-0.9); MONOCYTES % 8.4 % (0.0-11.0); NEUTROPHIL # 3.2 10^3/ul (1.6-7.5); NEUTROPHILS % 60.9 % (39.0-77.0); PLATELET COUNT 206 10^3/UL (140-415); RED BLOOD COUNT 2.87 10^6/ul (4.20-5.40); RED CELL DISTRIBUTION WIDTH 15.2 % (11.5-14.5)
[2018-04-25] MEDS: NYSTATIN SUSP 5 ML CUP PO ×4 (09:39→20:37)
[2018-04-25] MEDS: MOMETASONE 0.24 GM INHALER INH (09:39)
[2018-04-25] MEDS: AMIODARONE 200 MG TAB PO ×2 (09:40→20:36)
[2018-04-25] MEDS: METOPROLOL 25 MG TAB PO ×2 (09:40→20:36)
[2018-04-25] MEDS: WARFARIN 5 MG TAB PO (18:00)
[2018-04-25] MEDS: ATORVASTATIN 10 MG TAB PO (20:35)
[2018-04-25] MEDS: LATANOPROST 0.005% 2.5 ML OPH BOTH EYES (20:37)
[2018-04-26] MEDS: BUMETANIDE 1 MG TAB PO (06:03)
[2018-04-26] MEDS: PANTOPRAZOLE (EC) 40 MG TAB PO (06:03)
[2018-04-26] MEDS: LEVOTHYROXINE 50 MCG TAB PO (06:03)
[2018-04-26 06:59] LABS: INR 2.35; PROTIME 25.8 Sec (11.9-14.9)
[2018-04-26 07:16] LABS: ANION GAP 6 (5-13); BLOOD UREA NITROGEN 28 mg/dl (7-20); CALCIUM 8.8 mg/dl (8.4-10.2); CARBON DIOXIDE 30 mmol/L (21-31); CHLORIDE 101 mmol/L (97-110); CREATININE 0.83 mg/dl (0.44-1.00); Estimated GFR > 60 mL/min (>60); GLUCOSE 106 mg/dl (70-220); MAGNESIUM 1.8 mg/dl (1.7-2.5); PHOSPHORUS 3.7 mg/dl (2.5-4.9); POTASSIUM 3.4 mmol/L (3.5-5.1); SODIUM 137 mmol/L (135-144)
[2018-04-26] MEDS: MOMETASONE 0.24 GM INHALER INH (09:22)
[2018-04-26] MEDS: NYSTATIN SUSP 5 ML CUP PO ×4 (09:22→21:30)
[2018-04-26] MEDS: METOPROLOL 25 MG TAB PO ×2 (09:23→21:31)
[2018-04-26] MEDS: AMIODARONE 200 MG TAB PO ×2 (09:23→21:30)
[2018-04-26] MEDS: POTASSIUM CHLORIDE (SR) 10 MEQ TAB PO (10:33)
[2018-04-26] MEDS: WARFARIN 5 MG TAB PO (17:46)
[2018-04-26] MEDS: ATORVASTATIN 10 MG TAB PO (21:30)
[2018-04-26] MEDS: LATANOPROST 0.005% 2.5 ML OPH BOTH EYES (21:36)
[2018-04-27] MEDS: PANTOPRAZOLE (EC) 40 MG TAB PO (06:40)
[2018-04-27] MEDS: LEVOTHYROXINE 50 MCG TAB PO (06:40)
[2018-04-27] MEDS: BUMETANIDE 1 MG TAB PO (06:42)
[2018-04-27] MEDS: MOMETASONE 0.24 GM INHALER INH (08:52)
[2018-04-27] MEDS: NYSTATIN SUSP 5 ML CUP PO ×4 (08:53→20:40)
[2018-04-27] MEDS: METOPROLOL 25 MG TAB PO ×2 (08:53→20:40)
[2018-04-27] MEDS: AMIODARONE 200 MG TAB PO ×2 (08:54→20:41)
[2018-04-27 16:21] LABS: INR 2.16; PROTIME 24.2 Sec (11.9-14.9); PT RATIO 1.9
[2018-04-27] MEDS: WARFARIN 5 MG TAB PO (17:32)
[2018-04-27] MEDS: ATORVASTATIN 10 MG TAB PO (20:40)
[2018-04-27] MEDS: LATANOPROST 0.005% 2.5 ML OPH BOTH EYES (20:41)
[2018-04-28 06:28] LABS: ABNORMAL IP MESSAGE 1; HEMATOCRIT 24.6 % (37.0-47.0); HEMOGLOBIN 7.7 g/dl (12.0-16.0); MEAN CORPUSCULAR HEMOGLOBIN 30.1 pg (29.0-33.0); MEAN CORPUSCULAR HGB CONC 31.3 g/dl (32.0-37.0); MEAN CORPUSCULAR VOLUME 96.1 fl (82.0-101.0); MEAN PLATELET VOLUME 9.9 fl (7.4-10.4); NUCLEATED RED BLOOD CELLS% 0.4 /100WBC (0.0-0.0); PLATELET COUNT 233 10^3/UL (140-415); RED BLOOD COUNT 2.56 10^6/ul (4.20-5.40); RED CELL DISTRIBUTION WIDTH 16.4 % (11.5-14.5)
[2018-04-28 06:28] LABS: WHITE BLOOD COUNT 5.6 10^3/ul (4.8-10.8)
[2018-04-28 06:47] LABS: ANION GAP 6 (5-13); BLOOD UREA NITROGEN 27 mg/dl (7-20); CALCIUM 8.8 mg/dl (8.4-10.2); CARBON DIOXIDE 31 mmol/L (21-31); CHLORIDE 100 mmol/L (97-110); CREATININE 0.63 mg/dl (0.44-1.00); Estimated GFR > 60 mL/min (>60); GLUCOSE 120 mg/dl (70-220); POTASSIUM 3.6 mmol/L (3.5-5.1); SODIUM 137 mmol/L (135-144)
[2018-04-28 06:48] LABS: ADD MAN DIFF? YES; POSITIVE DIFF @See below
[2018-04-28] MEDS: BUMETANIDE 1 MG TAB PO (06:54)
[2018-04-28] MEDS: LEVOTHYROXINE 50 MCG TAB PO (06:54)
[2018-04-28] MEDS: PANTOPRAZOLE (EC) 40 MG TAB PO (06:54)
[2018-04-28 07:54] LABS: ANISOCYTOSIS 1+ (0-0); BAND NEUTROPHILS #M 0.4 10^3/ul (0.0-0.6); BAND NEUTROPHILS % (M) 8 % (0-4); BASOPHILS % (M) 1 % (0-2); EOSINOPHILS % (M) 4 % (0-7); ERYTHROBLAST% (NRBC) (M) 1 % (0-0); LYMPHOCYTES #M 1.1 10^3/ul (0.8-2.9); LYMPHOCYTES % (M) 21 % (15-51); METAMYELOCYTES %M 1 % (0-0); MICROCYTOSIS 1+ (0-0); MONOCYTE #M 0.2 10^3/ul (0.3-0.9); MONOCYTES % (M) 5 % (0-11); MYELOCYTES % (M) 1 % (0-0); PLATELET ESTIMATE NORMAL; POLYCHROMASIA 3+ (0-0); SEG NEUT #M 3.3 10^3/ul (1.6-7.5); SEGMENTED NEUTROPHILS (M) % 59 % (39-77); SMUDGE%M 3 % (0-0)
[2018-04-28] MEDS: MOMETASONE 0.24 GM INHALER INH (08:44)
[2018-04-28] MEDS: NYSTATIN SUSP 5 ML CUP PO ×4 (08:44→20:58)
[2018-04-28] MEDS: METOPROLOL 25 MG TAB PO ×2 (08:45→20:59)
[2018-04-28] MEDS: AMIODARONE 200 MG TAB PO ×2 (08:45→20:59)
[2018-04-28 15:16] LABS: ADD MAN DIFF? NO
[2018-04-28 15:17] LABS: WHITE BLOOD COUNT 6.1 10^3/ul (4.8-10.8)
[2018-04-28 15:17] LABS: BASOPHILS % 0.7 % (0.0-2.0); EOSINOPHILS # 0.2 10^3/ul (0.0-0.5); EOSINOPHILS % 2.4 % (0.0-7.0); HEMATOCRIT 25.5 % (37.0-47.0); HEMOGLOBIN 8.3 g/dl (12.0-16.0); LYMPHOCYTES # 1.4 10^3/ul (0.8-2.9); LYMPHOCYTES % 22.5 % (15.0-51.0); MEAN CORPUSCULAR HEMOGLOBIN 31.2 pg (29.0-33.0); MEAN CORPUSCULAR HGB CONC 32.5 g/dl (32.0-37.0); MEAN CORPUSCULAR VOLUME 95.9 fl (82.0-101.0); MEAN PLATELET VOLUME 9.6 fl (7.4-10.4); MONOCYTE # 0.4 10^3/ul (0.3-0.9); MONOCYTES % 6.9 % (0.0-11.0); NEUTROPHIL # 3.9 10^3/ul (1.6-7.5); NEUTROPHILS % 62.8 % (39.0-77.0); NUCLEATED RED BLOOD CELLS% 0.3 /100WBC (0.0-0.0); PLATELET COUNT 257 10^3/UL (140-415); RED BLOOD COUNT 2.66 10^6/ul (4.20-5.40); RED CELL DISTRIBUTION WIDTH 16.3 % (11.5-14.5)
[2018-04-28] MEDS: WARFARIN 5 MG TAB PO (17:45)
[2018-04-28] MEDS: ATORVASTATIN 10 MG TAB PO (20:59)
[2018-04-28] MEDS: LATANOPROST 0.005% 2.5 ML OPH BOTH EYES (21:05)
[2018-04-29] MEDS: PANTOPRAZOLE (EC) 40 MG TAB PO (06:08)
[2018-04-29] MEDS: BUMETANIDE 1 MG TAB PO (06:08)
[2018-04-29] MEDS: LEVOTHYROXINE 50 MCG TAB PO (06:08)
[2018-04-29 07:09] LABS: ABNORMAL IP MESSAGE 1; HEMATOCRIT 24.7 % (37.0-47.0); HEMOGLOBIN 7.8 g/dl (12.0-16.0); MEAN CORPUSCULAR HEMOGLOBIN 30.8 pg (29.0-33.0); MEAN CORPUSCULAR HGB CONC 31.6 g/dl (32.0-37.0); MEAN CORPUSCULAR VOLUME 97.6 fl (82.0-101.0); MEAN PLATELET VOLUME 9.6 fl (7.4-10.4); PLATELET COUNT 247 10^3/UL (140-415); RED BLOOD COUNT 2.53 10^6/ul (4.20-5.40); RED CELL DISTRIBUTION WIDTH 16.8 % (11.5-14.5)
[2018-04-29 07:09] LABS: WHITE BLOOD COUNT 5.1 10^3/ul (4.8-10.8)
[2018-04-29 07:13] LABS: ADD MAN DIFF? YES; POSITIVE DIFF @See below
[2018-04-29 07:18] LABS: INR 2.61; PT RATIO 2.2
[2018-04-29] MEDS: METOPROLOL 25 MG TAB PO ×2 (09:45→20:51)
[2018-04-29] MEDS: AMIODARONE 200 MG TAB PO ×2 (09:45→20:50)
[2018-04-29] MEDS: NYSTATIN SUSP 5 ML CUP PO ×4 (09:45→20:50)
[2018-04-29] MEDS: MOMETASONE 0.24 GM INHALER INH (09:46)
[2018-04-29 09:59] LABS: ANISOCYTOSIS 1+ (0-0); BAND NEUTROPHILS #M 0.2 10^3/ul (0.0-0.6); BAND NEUTROPHILS % (M) 5 % (0-4); EOSINOPHILS % (M) 1 % (0-7); ERYTHROBLAST% (NRBC) (M) 2 % (0-0); LYMPHOCYTES #M 0.9 10^3/ul (0.8-2.9); LYMPHOCYTES % (M) 18 % (15-51); METAMYELOCYTES %M 1 % (0-0); MICROCYTOSIS 1+ (0-0); MONOCYTE #M 0.2 10^3/ul (0.3-0.9); MONOCYTES % (M) 4 % (0-11); MYELOCYTES % (M) 1 % (0-0); PLATELET ESTIMATE NORMAL; POLYCHROMASIA 3+ (0-0); REACTIVE LYMPHOCYTES #M 0.2 10^3/ul (0.0-0.0); REACTIVE LYMPHOCYTES% (M) 4 % (0-0); SEG NEUT #M 3.4 10^3/ul (1.6-7.5); SEGMENTED NEUTROPHILS (M) % 66 % (39-77); SMUDGE%M 31 % (0-0)
[2018-04-29] MEDS: WARFARIN 5 MG TAB PO (17:02)
[2018-04-29] MEDS: LATANOPROST 0.005% 2.5 ML OPH BOTH EYES (20:50)
[2018-04-29] MEDS: ATORVASTATIN 10 MG TAB PO (20:50)
[2018-04-30] MEDS: PANTOPRAZOLE (EC) 40 MG TAB PO (06:39)
[2018-04-30] MEDS: BUMETANIDE 1 MG TAB PO (06:39)
[2018-04-30] MEDS: LEVOTHYROXINE 50 MCG TAB PO (06:39)
[2018-04-30 08:07] LABS: ADD MAN DIFF? NO
[2018-04-30 08:16] LABS: BASOPHILS % 0.4 % (0.0-2.0); EOSINOPHILS # 0.1 10^3/ul (0.0-0.5); EOSINOPHILS % 1.8 % (0.0-7.0); HEMATOCRIT 25.4 % (37.0-47.0); HEMOGLOBIN 8.2 g/dl (12.0-16.0); LYMPHOCYTES # 1.2 10^3/ul (0.8-2.9); LYMPHOCYTES % 24.5 % (15.0-51.0); MEAN CORPUSCULAR HEMOGLOBIN 30.7 pg (29.0-33.0); MEAN CORPUSCULAR HGB CONC 32.3 g/dl (32.0-37.0); MEAN CORPUSCULAR VOLUME 95.1 fl (82.0-101.0); MEAN PLATELET VOLUME 9.5 fl (7.4-10.4); MONOCYTE # 0.3 10^3/ul (0.3-0.9); MONOCYTES % 6.2 % (0.0-11.0); NEUTROPHIL # 3.1 10^3/ul (1.6-7.5); NEUTROPHILS % 62.1 % (39.0-77.0); PLATELET COUNT 243 10^3/UL (140-415); RED BLOOD COUNT 2.67 10^6/ul (4.20-5.40); RED CELL DISTRIBUTION WIDTH 16.9 % (11.5-14.5)
[2018-04-30 08:28] LABS: ANION GAP 7 (5-13); BLOOD UREA NITROGEN 26 mg/dl (7-20); CALCIUM 8.9 mg/dl (8.4-10.2); CARBON DIOXIDE 32 mmol/L (21-31); CHLORIDE 98 mmol/L (97-110); CREATININE 0.77 mg/dl (0.44-1.00); Estimated GFR > 60 mL/min (>60); GLUCOSE 113 mg/dl (70-220); POTASSIUM 3.5 mmol/L (3.5-5.1); SODIUM 137 mmol/L (135-144)
[2018-04-30 08:30] LABS: PROTIME 27.9 Sec (11.9-14.9); PT RATIO 2.2
[2018-04-30] MEDS: AMIODARONE 200 MG TAB PO ×2 (09:51→20:57)
[2018-04-30] MEDS: METOPROLOL 25 MG TAB PO ×2 (09:51→20:57)
[2018-04-30] MEDS: NYSTATIN SUSP 5 ML CUP PO ×4 (09:51→20:57)
[2018-04-30] MEDS: MOMETASONE 0.24 GM INHALER INH (09:52)
[2018-04-30] MEDS: WARFARIN 5 MG TAB PO (17:12)
[2018-04-30] MEDS: ATORVASTATIN 10 MG TAB PO (20:57)
[2018-04-30] MEDS: LATANOPROST 0.005% 2.5 ML OPH BOTH EYES (20:58)
[2018-04-30 21:21] LABS: ADD UMIC YES; UR ASCORBIC ACID NEGATIVE (NEGATIVE); UR BACTERIA FEW /HPF (NONE SEEN); UR BILIRUBIN (Dip) NEGATIVE (NEGATIVE); UR BLOOD (Dip) 3+ mg/dL (NEGATIVE); UR CLARITY CLOUDY (CLEAR); UR COLOR RED (YELLOW); UR GLUCOSE (Dip) NEGATIVE (NEGATIVE); UR KETONES (Dip) NEGATIVE (NEGATIVE); UR LEUKOCYTE ESTERASE (Dip) 1+ Leu/ul (NEGATIVE); UR MUCUS FEW /HPF (NONE SEEN); UR NITRITE (Dip) NEGATIVE (NEGATIVE); UR RBC > 182 /HPF (0-5); UR SPECIFIC GRAVITY (Dip) 1.015 (1.003-1.030); UR SQUAMOUS EPITHELIAL CELL FEW /HPF (FEW); UR TOTAL PROTEIN (Dip) 2+ mg/dl (NEGATIVE); UR UROBILINOGEN (Dip) NEGATIVE (NEGATIVE); UR WBC 114 /HPF (0-5)
[2018-05-01] MEDS: PANTOPRAZOLE (EC) 40 MG TAB PO (07:38)
[2018-05-01] MEDS: LEVOTHYROXINE 50 MCG TAB PO (07:38)
[2018-05-01] MEDS: BUMETANIDE 1 MG TAB PO (07:38)
[2018-05-01] MEDS: AMIODARONE 200 MG TAB PO ×2 (09:26→21:21)
[2018-05-01] MEDS: METOPROLOL 25 MG TAB PO ×2 (09:27→21:21)
[2018-05-01] MEDS: NYSTATIN SUSP 5 ML CUP PO ×4 (09:27→21:19)
[2018-05-01] MEDS: MOMETASONE 0.24 GM INHALER INH (09:27)
[2018-05-01 09:37] LABS: ADD MAN DIFF? NO
[2018-05-01 09:40] LABS: BASOPHILS % 0.5 % (0.0-2.0); EOSINOPHILS # 0.1 10^3/ul (0.0-0.5); EOSINOPHILS % 1.9 % (0.0-7.0); HEMATOCRIT 28.1 % (37.0-47.0); LYMPHOCYTES # 1.5 10^3/ul (0.8-2.9); LYMPHOCYTES % 25.1 % (15.0-51.0); MEAN CORPUSCULAR HEMOGLOBIN 30.8 pg (29.0-33.0); MEAN CORPUSCULAR VOLUME 96.2 fl (82.0-101.0); MEAN PLATELET VOLUME 9.2 fl (7.4-10.4); MONOCYTE # 0.3 10^3/ul (0.3-0.9); MONOCYTES % 5.6 % (0.0-11.0); NEUTROPHIL # 3.8 10^3/ul (1.6-7.5); NEUTROPHILS % 63.7 % (39.0-77.0); PLATELET COUNT 267 10^3/UL (140-415); RED BLOOD COUNT 2.92 10^6/ul (4.20-5.40); RED CELL DISTRIBUTION WIDTH 17.2 % (11.5-14.5)
[2018-05-01 09:40] LABS: WHITE BLOOD COUNT 5.9 10^3/ul (4.8-10.8)
[2018-05-01 10:02] LABS: ANION GAP 9 (5-13); BLOOD UREA NITROGEN 28 mg/dl (7-20); CALCIUM 9.2 mg/dl (8.4-10.2); CARBON DIOXIDE 31 mmol/L (21-31); CHLORIDE 98 mmol/L (97-110); CREATININE 0.78 mg/dl (0.44-1.00); Estimated GFR > 60 mL/min (>60); GLUCOSE 141 mg/dl (70-220); POTASSIUM 3.3 mmol/L (3.5-5.1); SODIUM 138 mmol/L (135-144)
[2018-05-01] MEDS: POTASSIUM CHLORIDE (SR) 20 MEQ TAB PO (13:28)
[2018-05-01] MEDS: CEFTRIAXONE 1 GM/50 ML (PMX) 50 ML IVPB (13:28)
[2018-05-01 14:38] LABS: ADD UMIC YES; UR ASCORBIC ACID NEGATIVE (NEGATIVE); UR BACTERIA FEW /HPF (NONE SEEN); UR BILIRUBIN (Dip) NEGATIVE (NEGATIVE); UR BLOOD (Dip) 2+ mg/dL (NEGATIVE); UR CLARITY SLIGHTLY CLOUDY (CLEAR); UR COLOR RED (YELLOW); UR GLUCOSE (Dip) 1+ mg/dL (NEGATIVE); UR KETONES (Dip) NEGATIVE (NEGATIVE); UR LEUKOCYTE ESTERASE (Dip) NEGATIVE Leu/ul (NEGATIVE); UR NITRITE (Dip) NEGATIVE (NEGATIVE); UR RBC 136 /HPF (0-5); UR SPECIFIC GRAVITY (Dip) 1.006 (1.003-1.030); UR SQUAMOUS EPITHELIAL CELL FEW /HPF (FEW); UR TOTAL PROTEIN (Dip) 2+ mg/dl (NEGATIVE); UR UROBILINOGEN (Dip) NEGATIVE (NEGATIVE); UR WBC 11 /HPF (0-5)
[2018-05-01 15:02] LABS: SODIUM,URINE RANDOM 109 mmol/L (30-90)
[2018-05-01 15:15] LABS: CREATININE,URINE RANDOM < 12.40 mg/dl (20-320)
[2018-05-01 15:38] LABS: INR 2.42; PROTIME 26.4 Sec (11.9-14.9); PT RATIO 2.1
[2018-05-01] MEDS: ATORVASTATIN 10 MG TAB PO (21:21)
[2018-05-01] MEDS: LATANOPROST 0.005% 2.5 ML OPH BOTH EYES (21:22)
[2018-05-02] MEDS: PANTOPRAZOLE (EC) 40 MG TAB PO (05:12)
[2018-05-02 06:04] LABS: ADD MAN DIFF? NO
[2018-05-02 06:09] LABS: BASOPHILS % 0.8 % (0.0-2.0); EOSINOPHILS # 0.1 10^3/ul (0.0-0.5); EOSINOPHILS % 2.2 % (0.0-7.0); HEMATOCRIT 25.8 % (37.0-47.0); HEMOGLOBIN 7.9 g/dl (12.0-16.0); LYMPHOCYTES # 1.3 10^3/ul (0.8-2.9); LYMPHOCYTES % 26.3 % (15.0-51.0); MEAN CORPUSCULAR HEMOGLOBIN 30.2 pg (29.0-33.0); MEAN CORPUSCULAR HGB CONC 30.6 g/dl (32.0-37.0); MEAN CORPUSCULAR VOLUME 98.5 fl (82.0-101.0); MEAN PLATELET VOLUME 9.9 fl (7.4-10.4); MONOCYTE # 0.3 10^3/ul (0.3-0.9); MONOCYTES % 5.3 % (0.0-11.0); NEUTROPHIL # 3.2 10^3/ul (1.6-7.5); NEUTROPHILS % 61.9 % (39.0-77.0); PLATELET COUNT 228 10^3/UL (140-415); RED BLOOD COUNT 2.62 10^6/ul (4.20-5.40); RED CELL DISTRIBUTION WIDTH 17.5 % (11.5-14.5)
[2018-05-02 06:09] LABS: WHITE BLOOD COUNT 5.1 10^3/ul (4.8-10.8)
[2018-05-02] MEDS: LEVOTHYROXINE 50 MCG TAB PO (06:29)
[2018-05-02] MEDS: BUMETANIDE 1 MG TAB PO (06:29)
[2018-05-02 06:44] LABS: INR 2.46; PROTIME 26.7 Sec (11.9-14.9); PT RATIO 2.1
[2018-05-02 07:10] LABS: ANION GAP 10 (5-13); BLOOD UREA NITROGEN 29 mg/dl (7-20); CALCIUM 8.9 mg/dl (8.4-10.2); CARBON DIOXIDE 32 mmol/L (21-31); CHLORIDE 97 mmol/L (97-110); CREATININE 0.78 mg/dl (0.44-1.00); Estimated GFR > 60 mL/min (>60); GLUCOSE 177 mg/dl (70-220); MAGNESIUM 1.8 mg/dl (1.7-2.5); PHOSPHORUS 3.9 mg/dl (2.5-4.9); POTASSIUM 3.6 mmol/L (3.5-5.1); SODIUM 139 mmol/L (135-144)
[2018-05-02] MEDS: MOMETASONE 0.24 GM INHALER INH (08:10)
[2018-05-02] MEDS: AMIODARONE 200 MG TAB PO ×2 (08:11→21:50)
[2018-05-02] MEDS: NYSTATIN SUSP 5 ML CUP PO ×4 (08:11→21:49)
[2018-05-02] MEDS: METOPROLOL 25 MG TAB PO ×2 (08:11→21:00)
[2018-05-02] MEDS: BARIUM SULF 2% 450 ML BTL (BERRY SMOOTHIE) PO (11:55)
[2018-05-02 12:07] LABS: HEMATOCRIT 26.7 % (37.0-47.0); HEMOGLOBIN 8.5 g/dl (12.0-16.0)
[2018-05-02] MEDS: CEFTRIAXONE 1 GM/50 ML (PMX) 50 ML IVPB (12:09)
[2018-05-02 15:43] LABS: CREATININE, RANDOM URINE 9 mg/dL (20-275); MICROALBUMIN 8.7 mg/dL; MICROALBUMIN/CREATININE RATIO 967 (<30)
[2018-05-02 18:33] LABS: HEMATOCRIT 26.1 % (37.0-47.0); HEMOGLOBIN 8.4 g/dl (12.0-16.0)
[2018-05-02 19:39] LABS: OCCULT BLOOD STOOL POSITIVE (NEGATIVE)
[2018-05-02] MEDS: LATANOPROST 0.005% 2.5 ML OPH BOTH EYES (21:49)
[2018-05-02] MEDS: ATORVASTATIN 10 MG TAB PO (21:49)
[2018-05-03 01:04] LABS: HEMATOCRIT 25.8 % (37.0-47.0); HEMOGLOBIN 8.2 g/dl (12.0-16.0)
[2018-05-03] MEDS: BUMETANIDE 1 MG TAB PO (05:51)
[2018-05-03] MEDS: PANTOPRAZOLE (EC) 40 MG TAB PO (05:51)
[2018-05-03] MEDS: LEVOTHYROXINE 50 MCG TAB PO (05:51)
[2018-05-03 06:22] LABS: ADD MAN DIFF? NO
[2018-05-03 06:26] LABS: BASOPHILS % 0.6 % (0.0-2.0); EOSINOPHILS # 0.1 10^3/ul (0.0-0.5); EOSINOPHILS % 1.5 % (0.0-7.0); HEMOGLOBIN 8.1 g/dl (12.0-16.0); LYMPHOCYTES # 1.3 10^3/ul (0.8-2.9); LYMPHOCYTES % 27.9 % (15.0-51.0); MEAN CORPUSCULAR HEMOGLOBIN 31.3 pg (29.0-33.0); MEAN CORPUSCULAR HGB CONC 32.4 g/dl (32.0-37.0); MEAN CORPUSCULAR VOLUME 96.5 fl (82.0-101.0); MEAN PLATELET VOLUME 9.3 fl (7.4-10.4); MONOCYTE # 0.4 10^3/ul (0.3-0.9); MONOCYTES % 7.6 % (0.0-11.0); NEUTROPHIL # 2.7 10^3/ul (1.6-7.5); NEUTROPHILS % 59.2 % (39.0-77.0); PLATELET COUNT 204 10^3/UL (140-415); RED BLOOD COUNT 2.59 10^6/ul (4.20-5.40); RED CELL DISTRIBUTION WIDTH 17.2 % (11.5-14.5)
[2018-05-03 06:26] LABS: WHITE BLOOD COUNT 4.6 10^3/ul (4.8-10.8)
[2018-05-03 07:01] LABS: ANION GAP 7 (5-13); BLOOD UREA NITROGEN 24 mg/dl (7-20); CALCIUM 8.8 mg/dl (8.4-10.2); CARBON DIOXIDE 33 mmol/L (21-31); CHLORIDE 96 mmol/L (97-110); CREATININE 0.77 mg/dl (0.44-1.00); Estimated GFR > 60 mL/min (>60); GLUCOSE 111 mg/dl (70-220); MAGNESIUM 1.9 mg/dl (1.7-2.5); PHOSPHORUS 4.3 mg/dl (2.5-4.9); POTASSIUM 3.4 mmol/L (3.5-5.1); SODIUM 136 mmol/L (135-144)
[2018-05-03] MEDS: NYSTATIN SUSP 5 ML CUP PO ×4 (09:00→20:15)
[2018-05-03 12:29] LABS: HEMATOCRIT 27.9 % (37.0-47.0); HEMOGLOBIN 9.1 g/dl (12.0-16.0)
[2018-05-03] MEDS: AMIODARONE 200 MG TAB PO ×2 (13:28→20:16)
[2018-05-03] MEDS: METOPROLOL 25 MG TAB PO ×2 (13:28→20:12)
[2018-05-03] MEDS: POTASSIUM CHLORIDE (SR) 20 MEQ TAB PO (13:29)
[2018-05-03] MEDS: CEFTRIAXONE 1 GM/50 ML (PMX) 50 ML IVPB (13:29)
[2018-05-03] MEDS: MOMETASONE 0.24 GM INHALER INH (13:29)
[2018-05-03] MEDS: WARFARIN 5 MG TAB PO (17:50)
[2018-05-03 19:34] LABS: HEMATOCRIT 26.9 % (37.0-47.0); HEMOGLOBIN 8.8 g/dl (12.0-16.0)
[2018-05-03] MEDS: ATORVASTATIN 10 MG TAB PO (20:15)
[2018-05-03] MEDS: LATANOPROST 0.005% 2.5 ML OPH BOTH EYES (20:15)
[2018-05-03] MEDS: PIPER-TAZO 3.375 GM IV (PMX) 100 ML IVPB (23:24)
[2018-05-04] MEDS: PIPER-TAZO 3.375 GM IV (PMX) 100 ML IVPB ×4 (06:19→23:09)
[2018-05-04] MEDS: LEVOTHYROXINE 50 MCG TAB PO (06:20)
[2018-05-04] MEDS: PANTOPRAZOLE (EC) 40 MG TAB PO (06:20)
[2018-05-04 07:28] LABS: INR 1.39; PROTIME 17.2 Sec (11.9-14.9); PT RATIO 1.3
[2018-05-04] MEDS: AMIODARONE 200 MG TAB PO ×2 (08:33→20:47)
[2018-05-04] MEDS: MOMETASONE 0.24 GM INHALER INH (08:34)
[2018-05-04] MEDS: NYSTATIN SUSP 5 ML CUP PO ×4 (08:34→20:47)
[2018-05-04] MEDS: METOPROLOL 25 MG TAB PO ×2 (08:34→20:47)
[2018-05-04 16:28] LABS: INR 1.36; PROTIME 16.9 Sec (11.9-14.9); PT RATIO 1.3
[2018-05-04] MEDS: WARFARIN 5 MG TAB PO (17:13)
[2018-05-04] MEDS: HEPARIN 1000 UNITS/ML 10 ML INJ IV (17:16)
[2018-05-04] MEDS: HEPARIN 25000 UNITS/250 ML 250 ML IV (17:16)
[2018-05-04 17:20] LABS: PARTIAL THROMBOPLASTIN TIME 30.4 Sec (23.0-35.0)
[2018-05-04 18:20] LABS: ADD MAN DIFF? NO
[2018-05-04 18:23] LABS: WHITE BLOOD COUNT 5.5 10^3/ul (4.8-10.8)
[2018-05-04 18:23] LABS: BASOPHILS % 0.5 % (0.0-2.0); EOSINOPHILS # 0.2 10^3/ul (0.0-0.5); EOSINOPHILS % 3.1 % (0.0-7.0); HEMATOCRIT 26.1 % (37.0-47.0); HEMOGLOBIN 8.3 g/dl (12.0-16.0); LYMPHOCYTES # 1.6 10^3/ul (0.8-2.9); LYMPHOCYTES % 28.2 % (15.0-51.0); MEAN CORPUSCULAR HEMOGLOBIN 31.1 pg (29.0-33.0); MEAN CORPUSCULAR HGB CONC 31.8 g/dl (32.0-37.0); MEAN CORPUSCULAR VOLUME 97.8 fl (82.0-101.0); MEAN PLATELET VOLUME 9.8 fl (7.4-10.4); MONOCYTE # 0.3 10^3/ul (0.3-0.9); MONOCYTES % 6.2 % (0.0-11.0); NEUTROPHIL # 3.3 10^3/ul (1.6-7.5); NEUTROPHILS % 60.2 % (39.0-77.0); PLATELET COUNT 208 10^3/UL (140-415); RED BLOOD COUNT 2.67 10^6/ul (4.20-5.40); RED CELL DISTRIBUTION WIDTH 17.5 % (11.5-14.5)
[2018-05-04] MEDS: LATANOPROST 0.005% 2.5 ML OPH BOTH EYES (20:47)
[2018-05-04] MEDS: ATORVASTATIN 10 MG TAB PO (20:47)
[2018-05-05 00:34] LABS: PARTIAL THROMBOPLASTIN TIME 122.3 Sec (23.0-35.0)
[2018-05-05] MEDS: HEPARIN 25000 UNITS/250 ML 250 ML IV ×3 (01:40→20:01)
[2018-05-05] MEDS: PIPER-TAZO 3.375 GM IV (PMX) 100 ML IVPB ×4 (05:49→23:43)
[2018-05-05] MEDS: PANTOPRAZOLE (EC) 40 MG TAB PO (05:49)
[2018-05-05] MEDS: LEVOTHYROXINE 50 MCG TAB PO (06:05)
[2018-05-05 06:22] LABS: ADD MAN DIFF? NO
[2018-05-05 06:30] LABS: WHITE BLOOD COUNT 4.5 10^3/ul (4.8-10.8)
[2018-05-05 06:30] LABS: BASOPHILS % 0.4 % (0.0-2.0); EOSINOPHILS # 0.2 10^3/ul (0.0-0.5); EOSINOPHILS % 3.3 % (0.0-7.0); HEMATOCRIT 24.8 % (37.0-47.0); HEMOGLOBIN 7.9 g/dl (12.0-16.0); LYMPHOCYTES # 1.3 10^3/ul (0.8-2.9); LYMPHOCYTES % 29.6 % (15.0-51.0); MEAN CORPUSCULAR HEMOGLOBIN 31.3 pg (29.0-33.0); MEAN CORPUSCULAR HGB CONC 31.9 g/dl (32.0-37.0); MEAN CORPUSCULAR VOLUME 98.4 fl (82.0-101.0); MEAN PLATELET VOLUME 9.5 fl (7.4-10.4); MONOCYTE # 0.3 10^3/ul (0.3-0.9); MONOCYTES % 6.6 % (0.0-11.0); NEUTROPHIL # 2.6 10^3/ul (1.6-7.5); NEUTROPHILS % 57.2 % (39.0-77.0); PLATELET COUNT 187 10^3/UL (140-415); RED BLOOD COUNT 2.52 10^6/ul (4.20-5.40); RED CELL DISTRIBUTION WIDTH 17.6 % (11.5-14.5)
[2018-05-05 06:43] LABS: PARTIAL THROMBOPLASTIN TIME 67.2 Sec (23.0-35.0)
[2018-05-05 06:53] LABS: INR 1.63; PROTIME 19.4 Sec (11.9-14.9); PT RATIO 1.5
[2018-05-05 07:22] LABS: ANION GAP 10 (5-13); BLOOD UREA NITROGEN 27 mg/dl (7-20); CALCIUM 8.4 mg/dl (8.4-10.2); CARBON DIOXIDE 29 mmol/L (21-31); CHLORIDE 101 mmol/L (97-110); Estimated GFR > 60 mL/min (>60); GLUCOSE 111 mg/dl (70-220); MAGNESIUM 1.9 mg/dl (1.7-2.5); PHOSPHORUS 4.1 mg/dl (2.5-4.9); POTASSIUM 3.3 mmol/L (3.5-5.1); SODIUM 140 mmol/L (135-144)
[2018-05-05] MEDS: NYSTATIN SUSP 5 ML CUP PO ×4 (08:47→21:17)
[2018-05-05] MEDS: METOPROLOL 25 MG TAB PO ×2 (08:47→21:00)
[2018-05-05] MEDS: MOMETASONE 0.24 GM INHALER INH (08:47)
[2018-05-05] MEDS: AMIODARONE 200 MG TAB PO ×2 (08:48→21:17)
[2018-05-05] MEDS: POTASSIUM CHLORIDE (SR) 20 MEQ TAB PO (09:17)
[2018-05-05 12:07] LABS: PARTIAL THROMBOPLASTIN TIME 45.7 Sec (23.0-35.0)
[2018-05-05] MEDS: HEPARIN 1000 UNITS/ML 10 ML INJ IV (12:57)
[2018-05-05 14:59] LABS: ADD MAN DIFF? NO
[2018-05-05 15:07] LABS: WHITE BLOOD COUNT 4.9 10^3/ul (4.8-10.8)
[2018-05-05 15:07] LABS: BASOPHILS % 0.4 % (0.0-2.0); EOSINOPHILS # 0.2 10^3/ul (0.0-0.5); EOSINOPHILS % 3.5 % (0.0-7.0); HEMATOCRIT 25.9 % (37.0-47.0); HEMOGLOBIN 8.1 g/dl (12.0-16.0); LYMPHOCYTES # 1.2 10^3/ul (0.8-2.9); LYMPHOCYTES % 25.4 % (15.0-51.0); MEAN CORPUSCULAR HEMOGLOBIN 30.7 pg (29.0-33.0); MEAN CORPUSCULAR HGB CONC 31.3 g/dl (32.0-37.0); MEAN CORPUSCULAR VOLUME 98.1 fl (82.0-101.0); MEAN PLATELET VOLUME 9.8 fl (7.4-10.4); MONOCYTE # 0.4 10^3/ul (0.3-0.9); MONOCYTES % 7.2 % (0.0-11.0); NEUTROPHILS % 62.1 % (39.0-77.0); PLATELET COUNT 199 10^3/UL (140-415); RED BLOOD COUNT 2.64 10^6/ul (4.20-5.40); RED CELL DISTRIBUTION WIDTH 17.6 % (11.5-14.5)
[2018-05-05] MEDS: WARFARIN 5 MG TAB PO (17:27)
[2018-05-05 19:49] LABS: PARTIAL THROMBOPLASTIN TIME 75.6 Sec (23.0-35.0)
[2018-05-05] MEDS: ATORVASTATIN 10 MG TAB PO (21:16)
[2018-05-05] MEDS: LATANOPROST 0.005% 2.5 ML OPH BOTH EYES (21:18)
[2018-05-06] MEDS: PIPER-TAZO 3.375 GM IV (PMX) 100 ML IVPB ×3 (05:38→17:01)
[2018-05-06] MEDS: LEVOTHYROXINE 50 MCG TAB PO (05:38)
[2018-05-06] MEDS: PANTOPRAZOLE (EC) 40 MG TAB PO (05:39)
[2018-05-06] MEDS: HEPARIN 25000 UNITS/250 ML 250 ML IV ×2 (05:49→10:19)
[2018-05-06 06:10] LABS: ADD MAN DIFF? NO
[2018-05-06 06:15] LABS: WHITE BLOOD COUNT 4.8 10^3/ul (4.8-10.8)
[2018-05-06 06:15] LABS: BASOPHILS % 0.4 % (0.0-2.0); EOSINOPHILS # 0.1 10^3/ul (0.0-0.5); EOSINOPHILS % 2.5 % (0.0-7.0); HEMATOCRIT 24.4 % (37.0-47.0); HEMOGLOBIN 7.6 g/dl (12.0-16.0); LYMPHOCYTES # 1.4 10^3/ul (0.8-2.9); MEAN CORPUSCULAR HEMOGLOBIN 30.9 pg (29.0-33.0); MEAN CORPUSCULAR HGB CONC 31.1 g/dl (32.0-37.0); MEAN CORPUSCULAR VOLUME 99.2 fl (82.0-101.0); MEAN PLATELET VOLUME 9.7 fl (7.4-10.4); MONOCYTE # 0.3 10^3/ul (0.3-0.9); MONOCYTES % 6.7 % (0.0-11.0); NEUTROPHIL # 2.8 10^3/ul (1.6-7.5); NEUTROPHILS % 57.9 % (39.0-77.0); PLATELET COUNT 170 10^3/UL (140-415); RED BLOOD COUNT 2.46 10^6/ul (4.20-5.40); RED CELL DISTRIBUTION WIDTH 18.1 % (11.5-14.5)
[2018-05-06 06:39] LABS: INR 2.78; PT RATIO 2.3
[2018-05-06 06:53] LABS: PROTIME 29.4 Sec (11.9-14.9)
[2018-05-06 06:54] LABS: PARTIAL THROMBOPLASTIN TIME 149.7 Sec (23.0-35.0)
[2018-05-06 07:38] LABS: ANION GAP 8 (5-13); BLOOD UREA NITROGEN 21 mg/dl (7-20); CALCIUM 8.5 mg/dl (8.4-10.2); CARBON DIOXIDE 29 mmol/L (21-31); CHLORIDE 103 mmol/L (97-110); CREATININE 0.75 mg/dl (0.44-1.00); Estimated GFR > 60 mL/min (>60); GLUCOSE 104 mg/dl (70-220); MAGNESIUM 1.9 mg/dl (1.7-2.5); PHOSPHORUS 3.5 mg/dl (2.5-4.9); SODIUM 140 mmol/L (135-144)
[2018-05-06] MEDS: NYSTATIN SUSP 5 ML CUP PO ×4 (08:18→20:57)
[2018-05-06] MEDS: MOMETASONE 0.24 GM INHALER INH (08:19)
[2018-05-06] MEDS: METOPROLOL 25 MG TAB PO ×2 (08:19→20:57)
[2018-05-06] MEDS: AMIODARONE 200 MG TAB PO ×2 (08:20→20:58)
[2018-05-06 08:35] LABS: PARTIAL THROMBOPLASTIN TIME 159.3 Sec (23.0-35.0)
[2018-05-06 11:45] LABS: AHG CROSSMATCH 1 1
[2018-05-06] MEDS ORDERED: WARFARIN 5 MG TAB PO (12:49)
[2018-05-06 15:10] LABS: HEMATOCRIT 27.9 % (37.0-47.0)
[2018-05-06] MEDS: WARFARIN 5 MG TAB PO (16:58)
[2018-05-06] MEDS: ATORVASTATIN 10 MG TAB PO (20:57)
[2018-05-06] MEDS: LATANOPROST 0.005% 2.5 ML OPH BOTH EYES (21:01)
[2018-05-07] MEDS: PANTOPRAZOLE (EC) 40 MG TAB PO (06:07)
[2018-05-07] MEDS: LEVOTHYROXINE 50 MCG TAB PO (06:07)
[2018-05-07 06:27] LABS: ADD MAN DIFF? NO
[2018-05-07 06:32] LABS: WHITE BLOOD COUNT 4.8 10^3/ul (4.8-10.8)
[2018-05-07 06:32] LABS: BASOPHILS % 0.6 % (0.0-2.0); EOSINOPHILS # 0.1 10^3/ul (0.0-0.5); EOSINOPHILS % 2.3 % (0.0-7.0); HEMATOCRIT 28.8 % (37.0-47.0); LYMPHOCYTES # 1.3 10^3/ul (0.8-2.9); LYMPHOCYTES % 27.3 % (15.0-51.0); MEAN CORPUSCULAR HEMOGLOBIN 31.4 pg (29.0-33.0); MEAN CORPUSCULAR HGB CONC 31.3 g/dl (32.0-37.0); MEAN CORPUSCULAR VOLUME 100.3 fl (82.0-101.0); MEAN PLATELET VOLUME 9.8 fl (7.4-10.4); MONOCYTE # 0.3 10^3/ul (0.3-0.9); MONOCYTES % 6.5 % (0.0-11.0); NEUTROPHIL # 2.9 10^3/ul (1.6-7.5); NEUTROPHILS % 60.8 % (39.0-77.0); PLATELET COUNT 169 10^3/UL (140-415); RED BLOOD COUNT 2.87 10^6/ul (4.20-5.40); RED CELL DISTRIBUTION WIDTH 18.7 % (11.5-14.5)
[2018-05-07 06:53] LABS: INR 3.65; PROTIME 36.3 Sec (11.9-14.9); PT RATIO 2.8
[2018-05-07] MEDS: AMIODARONE 200 MG TAB PO ×2 (08:29→19:57)
[2018-05-07] MEDS: METOPROLOL 25 MG TAB PO ×2 (08:29→19:58)
[2018-05-07] MEDS: NYSTATIN SUSP 5 ML CUP PO ×4 (08:29→19:57)
[2018-05-07] MEDS: MOMETASONE 0.24 GM INHALER INH (08:30)
[2018-05-07] MEDS: [UNRECOGNIZED DRUG - OTHER] XX (12:16)
[2018-05-07] MEDS: ATORVASTATIN 10 MG TAB PO (19:57)
[2018-05-07] MEDS: LATANOPROST 0.005% 2.5 ML OPH BOTH EYES (19:59)
[2018-05-08] MEDS: [UNRECOGNIZED DRUG - OTHER] XX ×2 (00:13→12:30)
[2018-05-08] MEDS: LEVOTHYROXINE 50 MCG TAB PO (06:04)
[2018-05-08] MEDS: PANTOPRAZOLE (EC) 40 MG TAB PO (06:04)
[2018-05-08 06:10] LABS: ADD MAN DIFF? NO
[2018-05-08 06:19] LABS: BASOPHILS % 0.4 % (0.0-2.0); EOSINOPHILS # 0.1 10^3/ul (0.0-0.5); EOSINOPHILS % 2.4 % (0.0-7.0); HEMATOCRIT 28.9 % (37.0-47.0); HEMOGLOBIN 9.1 g/dl (12.0-16.0); LYMPHOCYTES # 1.2 10^3/ul (0.8-2.9); LYMPHOCYTES % 24.6 % (15.0-51.0); MEAN CORPUSCULAR HEMOGLOBIN 31.8 pg (29.0-33.0); MEAN CORPUSCULAR HGB CONC 31.5 g/dl (32.0-37.0); MEAN PLATELET VOLUME 9.9 fl (7.4-10.4); MONOCYTE # 0.4 10^3/ul (0.3-0.9); NEUTROPHIL # 3.2 10^3/ul (1.6-7.5); NEUTROPHILS % 63.6 % (39.0-77.0); PLATELET COUNT 164 10^3/UL (140-415); RED BLOOD COUNT 2.86 10^6/ul (4.20-5.40); RED CELL DISTRIBUTION WIDTH 18.6 % (11.5-14.5)
[2018-05-08 06:33] LABS: INR 3.09; PROTIME 31.9 Sec (11.9-14.9); PT RATIO 2.5
[2018-05-08] MEDS: NYSTATIN SUSP 5 ML CUP PO ×4 (08:56→21:13)
[2018-05-08] MEDS: MOMETASONE 0.24 GM INHALER INH (08:56)
[2018-05-08] MEDS: METOPROLOL 25 MG TAB PO ×2 (08:57→21:13)
[2018-05-08] MEDS: AMIODARONE 200 MG TAB PO ×2 (08:57→21:13)
[2018-05-08] MEDS: ATORVASTATIN 10 MG TAB PO (21:13)
[2018-05-08] MEDS: LATANOPROST 0.005% 2.5 ML OPH BOTH EYES (21:14)
[2018-05-09] MEDS: [UNRECOGNIZED DRUG - OTHER] XX ×2 (00:30→12:30)
[2018-05-09] MEDS: PANTOPRAZOLE (EC) 40 MG TAB PO (06:42)
[2018-05-09] MEDS: LEVOTHYROXINE 50 MCG TAB PO (06:42)
[2018-05-09 06:49] LABS: ADD MAN DIFF? NO; HAAIG REFLEX REFLEX FILED
[2018-05-09 06:56] LABS: BASOPHILS % 0.6 % (0.0-2.0); EOSINOPHILS # 0.1 10^3/ul (0.0-0.5); EOSINOPHILS % 2.3 % (0.0-7.0); HEMATOCRIT 29.4 % (37.0-47.0); HEMOGLOBIN 9.2 g/dl (12.0-16.0); LYMPHOCYTES # 1.2 10^3/ul (0.8-2.9); LYMPHOCYTES % 25.2 % (15.0-51.0); MEAN CORPUSCULAR HEMOGLOBIN 31.5 pg (29.0-33.0); MEAN CORPUSCULAR HGB CONC 31.3 g/dl (32.0-37.0); MEAN CORPUSCULAR VOLUME 100.7 fl (82.0-101.0); MEAN PLATELET VOLUME 9.8 fl (7.4-10.4); MONOCYTE # 0.3 10^3/ul (0.3-0.9); MONOCYTES % 7.2 % (0.0-11.0); PLATELET COUNT 166 10^3/UL (140-415); RED BLOOD COUNT 2.92 10^6/ul (4.20-5.40); RED CELL DISTRIBUTION WIDTH 18.6 % (11.5-14.5)
[2018-05-09 06:56] LABS: WHITE BLOOD COUNT 4.7 10^3/ul (4.8-10.8)
[2018-05-09 07:13] LABS: INR 2.21; PROTIME 24.6 Sec (11.9-14.9); PT RATIO 1.9
[2018-05-09 07:51] LABS: HEPATITIS B SURFACE ANTIGEN NEGATIVE (NEGATIVE)
[2018-05-09 08:09] LABS: HEPATITIS B CORE ANTIBODY NEGATIVE (NEGATIVE); HEPATITIS C VIRAL ANTIBODY NEGATIVE (NEGATIVE)
[2018-05-09] MEDS: NYSTATIN SUSP 5 ML CUP PO ×4 (08:48→21:40)
[2018-05-09] MEDS: MOMETASONE 0.24 GM INHALER INH (08:48)
[2018-05-09] MEDS: AMIODARONE 200 MG TAB PO ×2 (08:49→21:39)
[2018-05-09] MEDS: METOPROLOL 25 MG TAB PO ×2 (08:49→21:40)
[2018-05-09] MEDS: BUMETANIDE 1 MG INJ IV (16:18)
[2018-05-09 17:07] LABS: CERULOPLASMIN 40 mg/dL (18-53)
[2018-05-09] MEDS: WARFARIN 2 MG TAB PO (17:41)
[2018-05-09] MEDS: WARFARIN 5 MG TAB PO (17:41)
[2018-05-09] MEDS: LATANOPROST 0.005% 2.5 ML OPH BOTH EYES (21:37)
[2018-05-09] MEDS: ATORVASTATIN 10 MG TAB PO (21:39)
[2018-05-10] MEDS: [UNRECOGNIZED DRUG - OTHER] XX (00:30)
[2018-05-10] MEDS: BUMETANIDE 1 MG TAB PO (05:59)
[2018-05-10] MEDS: PANTOPRAZOLE (EC) 40 MG TAB PO (05:59)
[2018-05-10] MEDS: LEVOTHYROXINE 50 MCG TAB PO (05:59)
[2018-05-10 06:11] LABS: ADD MAN DIFF? NO
[2018-05-10 06:13] LABS: WHITE BLOOD COUNT 4.1 10^3/ul (4.8-10.8)
[2018-05-10 06:13] LABS: BASOPHILS % 0.5 % (0.0-2.0); EOSINOPHILS # 0.1 10^3/ul (0.0-0.5); EOSINOPHILS % 2.2 % (0.0-7.0); HEMATOCRIT 28.6 % (37.0-47.0); HEMOGLOBIN 8.8 g/dl (12.0-16.0); LYMPHOCYTES % 24.2 % (15.0-51.0); MEAN CORPUSCULAR HEMOGLOBIN 31.4 pg (29.0-33.0); MEAN CORPUSCULAR HGB CONC 30.8 g/dl (32.0-37.0); MEAN CORPUSCULAR VOLUME 102.1 fl (82.0-101.0); MEAN PLATELET VOLUME 9.6 fl (7.4-10.4); MONOCYTE # 0.3 10^3/ul (0.3-0.9); MONOCYTES % 8.1 % (0.0-11.0); NEUTROPHIL # 2.6 10^3/ul (1.6-7.5); NEUTROPHILS % 63.5 % (39.0-77.0); PLATELET COUNT 155 10^3/UL (140-415); RED CELL DISTRIBUTION WIDTH 18.3 % (11.5-14.5)
[2018-05-10 06:39] LABS: ANION GAP 7 (5-13); BLOOD UREA NITROGEN 24 mg/dl (7-20); CALCIUM 8.8 mg/dl (8.4-10.2); CARBON DIOXIDE 29 mmol/L (21-31); CHLORIDE 103 mmol/L (97-110); CREATININE 0.66 mg/dl (0.44-1.00); Estimated GFR > 60 mL/min (>60); GLUCOSE 148 mg/dl (70-220); MAGNESIUM 1.7 mg/dl (1.7-2.5); PHOSPHORUS 4.2 mg/dl (2.5-4.9); POTASSIUM 3.9 mmol/L (3.5-5.1); SODIUM 139 mmol/L (135-144)
[2018-05-10 06:40] LABS: INR 1.77; PROTIME 20.7 Sec (11.9-14.9); PT RATIO 1.6
[2018-05-10] MEDS: NYSTATIN SUSP 5 ML CUP PO ×4 (08:32→22:08)
[2018-05-10] MEDS: AMIODARONE 200 MG TAB PO ×2 (08:32→22:07)
[2018-05-10] MEDS: METOPROLOL 25 MG TAB PO ×2 (08:33→22:08)
[2018-05-10] MEDS: MOMETASONE 0.24 GM INHALER INH (08:33)
[2018-05-10] MEDS: FERROUS SULFATE (EC) 325 MG TAB PO ×2 (10:02→22:07)
[2018-05-10 11:41] LABS: MITOCHONDRIAL TB NEGATIVE (NEGATIVE); SMOOTH MUSCLE AB SCREEN NEGATIVE (NEGATIVE)
[2018-05-10] MEDS ORDERED: WARFARIN 5 MG TAB PO (17:00)
[2018-05-10] MEDS: WARFARIN 3 MG TAB PO (17:37)
[2018-05-10] MEDS: LATANOPROST 0.005% 2.5 ML OPH BOTH EYES (22:06)
[2018-05-10] MEDS: ATORVASTATIN 10 MG TAB PO (22:07)
[2018-05-11] MEDS: PANTOPRAZOLE (EC) 40 MG TAB PO (06:05)
[2018-05-11] MEDS: BUMETANIDE 1 MG TAB PO (06:05)
[2018-05-11] MEDS: LEVOTHYROXINE 50 MCG TAB PO (06:05)
[2018-05-11 06:21] LABS: ADD MAN DIFF? NO
[2018-05-11 06:30] LABS: BASOPHILS % 0.4 % (0.0-2.0); EOSINOPHILS # 0.1 10^3/ul (0.0-0.5); EOSINOPHILS % 1.9 % (0.0-7.0); HEMATOCRIT 28.5 % (37.0-47.0); LYMPHOCYTES # 1.3 10^3/ul (0.8-2.9); LYMPHOCYTES % 28.2 % (15.0-51.0); MEAN CORPUSCULAR HEMOGLOBIN 31.8 pg (29.0-33.0); MEAN CORPUSCULAR HGB CONC 31.6 g/dl (32.0-37.0); MEAN CORPUSCULAR VOLUME 100.7 fl (82.0-101.0); MEAN PLATELET VOLUME 9.8 fl (7.4-10.4); MONOCYTE # 0.4 10^3/ul (0.3-0.9); MONOCYTES % 7.8 % (0.0-11.0); NEUTROPHIL # 2.8 10^3/ul (1.6-7.5); NEUTROPHILS % 60.2 % (39.0-77.0); PLATELET COUNT 159 10^3/UL (140-415); RED BLOOD COUNT 2.83 10^6/ul (4.20-5.40); RED CELL DISTRIBUTION WIDTH 18.3 % (11.5-14.5)
[2018-05-11 06:30] LABS: WHITE BLOOD COUNT 4.6 10^3/ul (4.8-10.8)
[2018-05-11] MEDS: MOMETASONE 0.24 GM INHALER INH (09:14)
[2018-05-11] MEDS: NYSTATIN SUSP 5 ML CUP PO ×4 (09:14→22:00)
[2018-05-11] MEDS: FERROUS SULFATE (EC) 325 MG TAB PO ×2 (09:14→21:59)
[2018-05-11] MEDS: AMIODARONE 200 MG TAB PO ×2 (09:15→22:00)
[2018-05-11] MEDS: METOPROLOL 25 MG TAB PO ×2 (09:15→22:00)
[2018-05-11] MEDS: DOCUSATE SODIUM 100 MG CAP PO (09:15)
[2018-05-11] MEDS: BUMETANIDE 1 MG INJ IV (13:00)
[2018-05-11] MEDS: WARFARIN 3 MG TAB PO (17:27)
[2018-05-11] MEDS: LATANOPROST 0.005% 2.5 ML OPH BOTH EYES (21:59)
[2018-05-11] MEDS: ATORVASTATIN 10 MG TAB PO (21:59)
[2018-05-12] MEDS: LEVOTHYROXINE 50 MCG TAB PO (05:39)
[2018-05-12] MEDS: BUMETANIDE 1 MG TAB PO (05:39)
[2018-05-12] MEDS: PANTOPRAZOLE (EC) 40 MG TAB PO (05:39)
[2018-05-12 06:44] LABS: ADD MAN DIFF? NO
[2018-05-12 06:47] LABS: WHITE BLOOD COUNT 4.5 10^3/ul (4.8-10.8)
[2018-05-12 06:47] LABS: BASOPHILS % 0.4 % (0.0-2.0); EOSINOPHILS # 0.1 10^3/ul (0.0-0.5); HEMATOCRIT 30.2 % (37.0-47.0); HEMOGLOBIN 9.6 g/dl (12.0-16.0); LYMPHOCYTES # 1.4 10^3/ul (0.8-2.9); LYMPHOCYTES % 31.2 % (15.0-51.0); MEAN CORPUSCULAR HEMOGLOBIN 31.9 pg (29.0-33.0); MEAN CORPUSCULAR HGB CONC 31.8 g/dl (32.0-37.0); MEAN CORPUSCULAR VOLUME 100.3 fl (82.0-101.0); MEAN PLATELET VOLUME 9.7 fl (7.4-10.4); MONOCYTE # 0.3 10^3/ul (0.3-0.9); MONOCYTES % 7.6 % (0.0-11.0); NEUTROPHIL # 2.6 10^3/ul (1.6-7.5); NEUTROPHILS % 57.5 % (39.0-77.0); PLATELET COUNT 165 10^3/UL (140-415); RED BLOOD COUNT 3.01 10^6/ul (4.20-5.40); RED CELL DISTRIBUTION WIDTH 18.2 % (11.5-14.5)
[2018-05-12 07:05] LABS: INR 2.86; PT RATIO 2.3
[2018-05-12 07:11] LABS: ANION GAP 4 (5-13); BLOOD UREA NITROGEN 23 mg/dl (7-20); CALCIUM 8.9 mg/dl (8.4-10.2); CARBON DIOXIDE 33 mmol/L (21-31); CHLORIDE 102 mmol/L (97-110); CREATININE 0.67 mg/dl (0.44-1.00); Estimated GFR > 60 mL/min (>60); GLUCOSE 101 mg/dl (70-220); POTASSIUM 3.6 mmol/L (3.5-5.1); SODIUM 139 mmol/L (135-144)
[2018-05-12] MEDS: MOMETASONE 0.24 GM INHALER INH (08:50)
[2018-05-12] MEDS: AMIODARONE 200 MG TAB PO ×2 (08:51→21:31)
[2018-05-12] MEDS: DOCUSATE SODIUM 100 MG CAP PO (08:52)
[2018-05-12] MEDS: NYSTATIN SUSP 5 ML CUP PO ×4 (08:52→21:30)
[2018-05-12] MEDS: FERROUS SULFATE (EC) 325 MG TAB PO ×2 (08:52→21:29)
[2018-05-12] MEDS: METOPROLOL 25 MG TAB PO ×2 (08:52→21:30)
[2018-05-12 13:27] LABS: ANA SCREEN POSITIVE (NEGATIVE)
[2018-05-12 14:13] LABS: ANA PATTERN SPECKLED
[2018-05-12] MEDS: WARFARIN 3 MG TAB PO (16:41)
[2018-05-12] MEDS: LATANOPROST 0.005% 2.5 ML OPH BOTH EYES (21:29)
[2018-05-12] MEDS: ATORVASTATIN 10 MG TAB PO (21:29)
[2018-05-13] MEDS: LEVOTHYROXINE 50 MCG TAB PO (06:54)
[2018-05-13] MEDS: PANTOPRAZOLE (EC) 40 MG TAB PO (06:54)
[2018-05-13 07:11] LABS: ADD MAN DIFF? NO
[2018-05-13 07:17] LABS: BASOPHILS % 0.6 % (0.0-2.0); EOSINOPHILS # 0.1 10^3/ul (0.0-0.5); EOSINOPHILS % 1.9 % (0.0-7.0); HEMATOCRIT 22.9 % (37.0-47.0); HEMOGLOBIN 7.3 g/dl (12.0-16.0); LYMPHOCYTES # 1.7 10^3/ul (0.8-2.9); LYMPHOCYTES % 31.2 % (15.0-51.0); MEAN CORPUSCULAR HEMOGLOBIN 32.2 pg (29.0-33.0); MEAN CORPUSCULAR HGB CONC 31.9 g/dl (32.0-37.0); MEAN CORPUSCULAR VOLUME 100.9 fl (82.0-101.0); MEAN PLATELET VOLUME 9.7 fl (7.4-10.4); MONOCYTE # 0.4 10^3/ul (0.3-0.9); MONOCYTES % 7.3 % (0.0-11.0); NEUTROPHIL # 3.1 10^3/ul (1.6-7.5); NEUTROPHILS % 57.7 % (39.0-77.0); PLATELET COUNT 180 10^3/UL (140-415); RED BLOOD COUNT 2.27 10^6/ul (4.20-5.40); RED CELL DISTRIBUTION WIDTH 17.7 % (11.5-14.5)
[2018-05-13 07:17] LABS: WHITE BLOOD COUNT 5.4 10^3/ul (4.8-10.8)
[2018-05-13 07:35] LABS: INR 3.36; PT RATIO 2.7
[2018-05-13 07:36] LABS: PARTIAL THROMBOPLASTIN TIME 38.4 Sec (23.0-35.0)
[2018-05-13 07:54] LABS: ANION GAP 7 (5-13); BLOOD UREA NITROGEN 24 mg/dl (7-20); CALCIUM 8.9 mg/dl (8.4-10.2); CARBON DIOXIDE 31 mmol/L (21-31); CHLORIDE 101 mmol/L (97-110); CREATININE 0.65 mg/dl (0.44-1.00); Estimated GFR > 60 mL/min (>60); GLUCOSE 88 mg/dl (70-220); POTASSIUM 3.9 mmol/L (3.5-5.1); SODIUM 139 mmol/L (135-144)
[2018-05-13] MEDS: NYSTATIN SUSP 5 ML CUP PO ×4 (08:48→21:00)
[2018-05-13] MEDS: DOCUSATE SODIUM 100 MG CAP PO (08:49)
[2018-05-13] MEDS: AMIODARONE 200 MG TAB PO ×2 (08:49→21:01)
[2018-05-13] MEDS: MOMETASONE 0.24 GM INHALER INH (08:49)
[2018-05-13] MEDS: FERROUS SULFATE (EC) 325 MG TAB PO ×2 (08:49→21:01)
[2018-05-13] MEDS: METOPROLOL 25 MG TAB PO ×2 (08:49→21:01)
[2018-05-13] MEDS: BUMETANIDE 1 MG TAB PO (10:15)
[2018-05-13 10:27] LABS: HEMATOCRIT 31.9 % (37.0-47.0)
[2018-05-13] MEDS: WARFARIN 5 MG TAB PO (16:24)
[2018-05-13] MEDS: ATORVASTATIN 10 MG TAB PO (21:00)
[2018-05-13] MEDS: LATANOPROST 0.005% 2.5 ML OPH BOTH EYES (21:02)
[2018-05-14 07:17] LABS: INR 3.89; PROTIME 38.1 Sec (11.9-14.9)
[2018-05-14] MEDS: BUMETANIDE 1 MG TAB PO ×3 (07:49→21:14)
[2018-05-14] MEDS: LEVOTHYROXINE 50 MCG TAB PO (07:49)
[2018-05-14] MEDS: PANTOPRAZOLE (EC) 40 MG TAB PO (07:50)
[2018-05-14] MEDS: FERROUS SULFATE (EC) 325 MG TAB PO ×2 (08:15→21:15)
[2018-05-14] MEDS: NYSTATIN SUSP 5 ML CUP PO ×4 (08:15→21:15)
[2018-05-14] MEDS: DOCUSATE SODIUM 100 MG CAP PO (08:15)
[2018-05-14] MEDS: MOMETASONE 0.24 GM INHALER INH (08:16)
[2018-05-14] MEDS: AMIODARONE 200 MG TAB PO ×2 (08:16→21:15)
[2018-05-14] MEDS: METOPROLOL 25 MG TAB PO ×2 (08:17→21:00)
[2018-05-14 10:48] LABS: HEMATOCRIT 29.3 % (37.0-47.0); HEMOGLOBIN 9.3 g/dl (12.0-16.0)
[2018-05-14] MEDS: ATORVASTATIN 10 MG TAB PO (21:14)
[2018-05-14] MEDS: LATANOPROST 0.005% 2.5 ML OPH BOTH EYES (21:16)
[2018-05-15] MEDS: PANTOPRAZOLE (EC) 40 MG TAB PO (06:34)
[2018-05-15] MEDS: LEVOTHYROXINE 50 MCG TAB PO (06:34)
[2018-05-15 06:44] LABS: ADD MAN DIFF? NO
[2018-05-15 06:47] LABS: BASOPHILS % 0.4 % (0.0-2.0); EOSINOPHILS # 0.1 10^3/ul (0.0-0.5); EOSINOPHILS % 1.2 % (0.0-7.0); HEMATOCRIT 30.1 % (37.0-47.0); HEMOGLOBIN 9.6 g/dl (12.0-16.0); LYMPHOCYTES # 1.3 10^3/ul (0.8-2.9); LYMPHOCYTES % 25.6 % (15.0-51.0); MEAN CORPUSCULAR HEMOGLOBIN 31.5 pg (29.0-33.0); MEAN CORPUSCULAR HGB CONC 31.9 g/dl (32.0-37.0); MEAN CORPUSCULAR VOLUME 98.7 fl (82.0-101.0); MEAN PLATELET VOLUME 9.5 fl (7.4-10.4); MONOCYTE # 0.4 10^3/ul (0.3-0.9); MONOCYTES % 7.1 % (0.0-11.0); NEUTROPHIL # 3.3 10^3/ul (1.6-7.5); NEUTROPHILS % 64.7 % (39.0-77.0); PLATELET COUNT 169 10^3/UL (140-415); RED BLOOD COUNT 3.05 10^6/ul (4.20-5.40); RED CELL DISTRIBUTION WIDTH 17.2 % (11.5-14.5)
[2018-05-15 07:06] LABS: INR 3.33; PROTIME 33.8 Sec (11.9-14.9); PT RATIO 2.6
[2018-05-15 07:14] LABS: ANION GAP 5 (5-13); BLOOD UREA NITROGEN 22 mg/dl (7-20); CALCIUM 8.6 mg/dl (8.4-10.2); CARBON DIOXIDE 32 mmol/L (21-31); CHLORIDE 101 mmol/L (97-110); CREATININE 0.61 mg/dl (0.44-1.00); Estimated GFR > 60 mL/min (>60); GLUCOSE 102 mg/dl (70-220); MAGNESIUM 1.7 mg/dl (1.7-2.5); PHOSPHORUS 3.8 mg/dl (2.5-4.9); POTASSIUM 3.2 mmol/L (3.5-5.1); SODIUM 138 mmol/L (135-144)
[2018-05-15] MEDS: POTASSIUM CHLORIDE (SR) 20 MEQ TAB PO (10:08)
[2018-05-15] MEDS: AMIODARONE 200 MG TAB PO ×2 (10:08→21:06)
[2018-05-15] MEDS: DOCUSATE SODIUM 100 MG CAP PO (10:08)
[2018-05-15] MEDS: BUMETANIDE 1 MG TAB PO ×2 (10:08→21:04)
[2018-05-15] MEDS: MOMETASONE 0.24 GM INHALER INH (10:09)
[2018-05-15] MEDS: METOPROLOL 25 MG TAB PO ×2 (10:09→21:00)
[2018-05-15] MEDS: NYSTATIN SUSP 5 ML CUP PO ×4 (10:09→21:07)
[2018-05-15] MEDS: FERROUS SULFATE (EC) 325 MG TAB PO ×2 (10:09→21:05)
[2018-05-15] MEDS: ACETAMINOPHEN 325 MG TAB PO (21:04)
[2018-05-15] MEDS: ATORVASTATIN 10 MG TAB PO (21:05)
[2018-05-15] MEDS: LATANOPROST 0.005% 2.5 ML OPH BOTH EYES (23:14)
[2018-05-16] MEDS: PANTOPRAZOLE (EC) 40 MG TAB PO (06:05)
[2018-05-16] MEDS: LEVOTHYROXINE 50 MCG TAB PO (06:05)
[2018-05-16 06:09] LABS: ADD MAN DIFF? NO
[2018-05-16 06:12] LABS: WHITE BLOOD COUNT 4.6 10^3/ul (4.8-10.8)
[2018-05-16 06:12] LABS: BASOPHILS % 0.7 % (0.0-2.0); EOSINOPHILS # 0.1 10^3/ul (0.0-0.5); EOSINOPHILS % 1.8 % (0.0-7.0); HEMATOCRIT 29.1 % (37.0-47.0); HEMOGLOBIN 9.6 g/dl (12.0-16.0); LYMPHOCYTES # 1.6 10^3/ul (0.8-2.9); LYMPHOCYTES % 34.9 % (15.0-51.0); MEAN CORPUSCULAR HEMOGLOBIN 32.2 pg (29.0-33.0); MEAN CORPUSCULAR VOLUME 97.7 fl (82.0-101.0); MEAN PLATELET VOLUME 9.4 fl (7.4-10.4); MONOCYTE # 0.4 10^3/ul (0.3-0.9); MONOCYTES % 9.7 % (0.0-11.0); NEUTROPHIL # 2.4 10^3/ul (1.6-7.5); NEUTROPHILS % 52.2 % (39.0-77.0); PLATELET COUNT 177 10^3/UL (140-415); RED BLOOD COUNT 2.98 10^6/ul (4.20-5.40); RED CELL DISTRIBUTION WIDTH 17.3 % (11.5-14.5)
[2018-05-16 06:37] LABS: INR 2.28; PROTIME 25.2 Sec (11.9-14.9)
[2018-05-16 06:46] LABS: ANION GAP 5 (5-13); BLOOD UREA NITROGEN 21 mg/dl (7-20); CALCIUM 8.5 mg/dl (8.4-10.2); CARBON DIOXIDE 35 mmol/L (21-31); CHLORIDE 98 mmol/L (97-110); CREATININE 0.69 mg/dl (0.44-1.00); Estimated GFR > 60 mL/min (>60); GLUCOSE 100 mg/dl (70-220); MAGNESIUM 1.7 mg/dl (1.7-2.5); PHOSPHORUS 3.8 mg/dl (2.5-4.9); POTASSIUM 3.3 mmol/L (3.5-5.1); SODIUM 138 mmol/L (135-144)
[2018-05-16] MEDS: BUMETANIDE 1 MG TAB PO (09:59)
[2018-05-16] MEDS: METOPROLOL 25 MG TAB PO (10:00)
[2018-05-16] MEDS: AMIODARONE 200 MG TAB PO ×2 (10:00→20:46)
[2018-05-16] MEDS: DOCUSATE SODIUM 100 MG CAP PO (10:00)
[2018-05-16] MEDS: FERROUS SULFATE (EC) 325 MG TAB PO ×2 (10:00→20:45)
[2018-05-16] MEDS: POTASSIUM CHLORIDE (SR) 20 MEQ TAB PO (10:01)
[2018-05-16] MEDS: NYSTATIN SUSP 5 ML CUP PO ×4 (10:01→20:45)
[2018-05-16] MEDS: MOMETASONE 0.24 GM INHALER INH (10:01)
[2018-05-16] MEDS: PIPER-TAZO 3.375 GM IV (PMX) 100 ML IVPB ×3 (12:26→23:51)
[2018-05-16] MEDS ORDERED: WARFARIN 5 MG TAB PO (17:00)
[2018-05-16] MEDS: WARFARIN 3 MG TAB PO (17:33)
[2018-05-16] MEDS: BUMETANIDE 1 MG INJ IV (17:35)
[2018-05-16 19:34] LABS: ADD UMIC YES; UR ASCORBIC ACID NEGATIVE (NEGATIVE); UR BACTERIA FEW /HPF (NONE SEEN); UR BILIRUBIN (Dip) NEGATIVE (NEGATIVE); UR BLOOD (Dip) 3+ mg/dL (NEGATIVE); UR CLARITY TURBID (CLEAR); UR COLOR YELLOW (YELLOW); UR GLUCOSE (Dip) NEGATIVE (NEGATIVE); UR KETONES (Dip) NEGATIVE (NEGATIVE); UR LEUKOCYTE ESTERASE (Dip) 2+ Leu/ul (NEGATIVE); UR MUCUS FEW /HPF (NONE SEEN); UR NITRITE (Dip) NEGATIVE (NEGATIVE); UR RBC 65 /HPF (0-5); UR SPECIFIC GRAVITY (Dip) 1.015 (1.003-1.030); UR SQUAMOUS EPITHELIAL CELL FEW /HPF (FEW); UR TOTAL PROTEIN (Dip) 2+ mg/dl (NEGATIVE); UR UROBILINOGEN (Dip) NEGATIVE (NEGATIVE); UR WBC > 182 /HPF (0-5)
[2018-05-16] MEDS: SOD CHLORIDE 0.9% 500 ML (20:25)
[2018-05-16] MEDS: IOHEXOL 300MG/ML 30 ML BTL (20:25)
[2018-05-16] MEDS: ATORVASTATIN 10 MG TAB PO (20:45)
[2018-05-16] MEDS: LATANOPROST 0.005% 2.5 ML OPH BOTH EYES (20:56)
[2018-05-17] MEDS: PIPER-TAZO 3.375 GM IV (PMX) 100 ML IVPB ×3 (05:43→18:08)
[2018-05-17] MEDS: PANTOPRAZOLE (EC) 40 MG TAB PO (05:43)
[2018-05-17] MEDS: LEVOTHYROXINE 50 MCG TAB PO (06:03)
[2018-05-17 07:07] LABS: INR 1.88; PROTIME 21.7 Sec (11.9-14.9); PT RATIO 1.7
[2018-05-17 07:17] LABS: ANION GAP 5 (5-13); BLOOD UREA NITROGEN 20 mg/dl (7-20); CALCIUM 8.5 mg/dl (8.4-10.2); CARBON DIOXIDE 32 mmol/L (21-31); CHLORIDE 101 mmol/L (97-110); Estimated GFR > 60 mL/min (>60); GLUCOSE 102 mg/dl (70-220); MAGNESIUM 1.8 mg/dl (1.7-2.5); PHOSPHORUS 3.9 mg/dl (2.5-4.9); POTASSIUM 3.3 mmol/L (3.5-5.1); SODIUM 138 mmol/L (135-144)
[2018-05-17] MEDS: NYSTATIN SUSP 5 ML CUP PO ×4 (08:48→21:07)
[2018-05-17] MEDS: FERROUS SULFATE (EC) 325 MG TAB PO ×2 (08:48→21:06)
[2018-05-17] MEDS: DOCUSATE SODIUM 100 MG CAP PO (08:49)
[2018-05-17] MEDS: AMIODARONE 200 MG TAB PO ×2 (08:49→21:06)
[2018-05-17] MEDS: BUMETANIDE 1 MG TAB PO (08:49)
[2018-05-17] MEDS: MOMETASONE 0.24 GM INHALER INH (08:50)
[2018-05-17] MEDS: WARFARIN 3 MG TAB PO (18:08)
[2018-05-17] MEDS: ATORVASTATIN 10 MG TAB PO (21:06)
[2018-05-17] MEDS: LATANOPROST 0.005% 2.5 ML OPH BOTH EYES (21:10)
[2018-05-18] MEDS: PIPER-TAZO 3.375 GM IV (PMX) 100 ML IVPB ×4 (00:04→18:04)
[2018-05-18] MEDS: PANTOPRAZOLE (EC) 40 MG TAB PO (05:36)
[2018-05-18] MEDS: LEVOTHYROXINE 50 MCG TAB PO (06:16)
[2018-05-18 06:40] LABS: INR 2.19; PROTIME 24.4 Sec (11.9-14.9); PT RATIO 1.9
[2018-05-18] MEDS: MOMETASONE 0.24 GM INHALER INH (08:33)
[2018-05-18] MEDS: NYSTATIN SUSP 5 ML CUP PO ×4 (08:33→21:14)
[2018-05-18] MEDS: DOCUSATE SODIUM 100 MG CAP PO (08:34)
[2018-05-18] MEDS: BUMETANIDE 1 MG TAB PO (08:34)
[2018-05-18] MEDS: AMIODARONE 200 MG TAB PO ×2 (08:34→21:14)
[2018-05-18] MEDS: FERROUS SULFATE (EC) 325 MG TAB PO ×2 (08:34→21:15)
[2018-05-18] MEDS: POTASSIUM CHLORIDE (SR) 20 MEQ TAB PO (13:21)
[2018-05-18] MEDS: WARFARIN 3 MG TAB PO (18:04)
[2018-05-18] MEDS: ATORVASTATIN 10 MG TAB PO (21:14)
[2018-05-18] MEDS: LATANOPROST 0.005% 2.5 ML OPH BOTH EYES (21:14)
[2018-05-19] MEDS: PIPER-TAZO 3.375 GM IV (PMX) 100 ML IVPB ×2 (00:02→05:26)
[2018-05-19] MEDS: PANTOPRAZOLE (EC) 40 MG TAB PO (05:27)
[2018-05-19] MEDS: LEVOTHYROXINE 50 MCG TAB PO (06:24)
[2018-05-19 06:29] LABS: INR 2.47; PROTIME 26.8 Sec (11.9-14.9); PT RATIO 2.1
[2018-05-19] MEDS: DOCUSATE SODIUM 100 MG CAP PO (08:25)
[2018-05-19] MEDS: FERROUS SULFATE (EC) 325 MG TAB PO ×2 (08:25→20:35)
[2018-05-19] MEDS: NYSTATIN SUSP 5 ML CUP PO ×4 (08:25→20:35)
[2018-05-19] MEDS: BUMETANIDE 1 MG TAB PO (08:25)
[2018-05-19] MEDS: AMIODARONE 200 MG TAB PO ×2 (08:26→20:36)
[2018-05-19] MEDS: MOMETASONE 0.24 GM INHALER INH (08:26)
[2018-05-19] MEDS: ERTAPENEM SODIUM 1 GM in SOD CHLORIDE 0.9% 100 ML IVPB (13:18)
[2018-05-19] MEDS: WARFARIN 5 MG TAB PO (18:05)
[2018-05-19] MEDS: LATANOPROST 0.005% 2.5 ML OPH BOTH EYES (20:35)
[2018-05-19] MEDS: ATORVASTATIN 10 MG TAB PO (20:35)
[2018-05-20] MEDS: PANTOPRAZOLE (EC) 40 MG TAB PO (06:20)
[2018-05-20] MEDS: LEVOTHYROXINE 50 MCG TAB PO (06:20)
[2018-05-20 06:58] LABS: ADD MAN DIFF? NO
[2018-05-20 07:05] LABS: WHITE BLOOD COUNT 4.6 10^3/ul (4.8-10.8)
[2018-05-20 07:05] LABS: BASOPHILS % 0.7 % (0.0-2.0); EOSINOPHILS # 0.1 10^3/ul (0.0-0.5); EOSINOPHILS % 2.4 % (0.0-7.0); HEMATOCRIT 29.1 % (37.0-47.0); HEMOGLOBIN 9.3 g/dl (12.0-16.0); LYMPHOCYTES # 1.3 10^3/ul (0.8-2.9); MEAN CORPUSCULAR HEMOGLOBIN 31.1 pg (29.0-33.0); MEAN CORPUSCULAR VOLUME 97.3 fl (82.0-101.0); MEAN PLATELET VOLUME 9.3 fl (7.4-10.4); MONOCYTE # 0.4 10^3/ul (0.3-0.9); MONOCYTES % 8.5 % (0.0-11.0); NEUTROPHIL # 2.8 10^3/ul (1.6-7.5); NEUTROPHILS % 59.5 % (39.0-77.0); PLATELET COUNT 205 10^3/UL (140-415); RED BLOOD COUNT 2.99 10^6/ul (4.20-5.40); RED CELL DISTRIBUTION WIDTH 15.9 % (11.5-14.5)
[2018-05-20 07:19] LABS: INR 3.36; PT RATIO 2.7
[2018-05-20 07:49] LABS: ANION GAP 5 (5-13); BLOOD UREA NITROGEN 19 mg/dl (7-20); CALCIUM 9.1 mg/dl (8.4-10.2); CARBON DIOXIDE 31 mmol/L (21-31); CHLORIDE 101 mmol/L (97-110); CREATININE 0.64 mg/dl (0.44-1.00); Estimated GFR > 60 mL/min (>60); GLUCOSE 135 mg/dl (70-220); MAGNESIUM 1.9 mg/dl (1.7-2.5); PHOSPHORUS 3.6 mg/dl (2.5-4.9); POTASSIUM 3.3 mmol/L (3.5-5.1); SODIUM 137 mmol/L (135-144)
[2018-05-20] MEDS: MOMETASONE 0.24 GM INHALER INH (09:03)
[2018-05-20] MEDS: DOCUSATE SODIUM 100 MG CAP PO (09:03)
[2018-05-20] MEDS: FERROUS SULFATE (EC) 325 MG TAB PO ×2 (09:03→21:29)
[2018-05-20] MEDS: BUMETANIDE 1 MG TAB PO (09:03)
[2018-05-20] MEDS: AMIODARONE 200 MG TAB PO ×2 (09:03→21:29)
[2018-05-20] MEDS: NYSTATIN SUSP 5 ML CUP PO ×4 (09:03→21:28)
[2018-05-20] MEDS: ERTAPENEM SODIUM 1 GM in SOD CHLORIDE 0.9% 100 ML IVPB (11:26)
[2018-05-20] MEDS: POTASSIUM CHLORIDE (SR) 20 MEQ TAB PO (11:27)
[2018-05-20 17:19] LABS: ADD UMIC YES; UR ASCORBIC ACID NEGATIVE (NEGATIVE); UR BACTERIA FEW /HPF (NONE SEEN); UR BILIRUBIN (Dip) NEGATIVE (NEGATIVE); UR BLOOD (Dip) 3+ mg/dL (NEGATIVE); UR CLARITY TURBID (CLEAR); UR COLOR YELLOW (YELLOW); UR GLUCOSE (Dip) NEGATIVE (NEGATIVE); UR KETONES (Dip) NEGATIVE (NEGATIVE); UR LEUKOCYTE ESTERASE (Dip) 3+ Leu/ul (NEGATIVE); UR NITRITE (Dip) NEGATIVE (NEGATIVE); UR NONSQUAMOUS EPITHELIAL CELL 3 /HPF (NONE SEEN); UR RBC 95 /HPF (0-5); UR SPECIFIC GRAVITY (Dip) 1.014 (1.003-1.030); UR TOTAL PROTEIN (Dip) 2+ mg/dl (NEGATIVE); UR UROBILINOGEN (Dip) NEGATIVE (NEGATIVE); UR WBC > 182 /HPF (0-5)
[2018-05-20] MEDS: WARFARIN 5 MG TAB PO (18:40)
[2018-05-20] MEDS: ATORVASTATIN 10 MG TAB PO (21:29)
[2018-05-20] MEDS: LATANOPROST 0.005% 2.5 ML OPH BOTH EYES (22:45)
[2018-05-21 06:04] LABS: ADD MAN DIFF? NO
[2018-05-21 06:10] LABS: WHITE BLOOD COUNT 4.4 10^3/ul (4.8-10.8)
[2018-05-21 06:10] LABS: BASOPHILS % 0.7 % (0.0-2.0); EOSINOPHILS # 0.1 10^3/ul (0.0-0.5); EOSINOPHILS % 2.3 % (0.0-7.0); HEMATOCRIT 29.5 % (37.0-47.0); HEMOGLOBIN 9.5 g/dl (12.0-16.0); LYMPHOCYTES # 1.2 10^3/ul (0.8-2.9); LYMPHOCYTES % 26.8 % (15.0-51.0); MEAN CORPUSCULAR HEMOGLOBIN 31.8 pg (29.0-33.0); MEAN CORPUSCULAR HGB CONC 32.2 g/dl (32.0-37.0); MEAN CORPUSCULAR VOLUME 98.7 fl (82.0-101.0); MEAN PLATELET VOLUME 9.2 fl (7.4-10.4); MONOCYTE # 0.4 10^3/ul (0.3-0.9); MONOCYTES % 8.2 % (0.0-11.0); NEUTROPHIL # 2.6 10^3/ul (1.6-7.5); PLATELET COUNT 225 10^3/UL (140-415); RED BLOOD COUNT 2.99 10^6/ul (4.20-5.40); RED CELL DISTRIBUTION WIDTH 16.1 % (11.5-14.5)
[2018-05-21] MEDS: LEVOTHYROXINE 50 MCG TAB PO (06:16)
[2018-05-21] MEDS: PANTOPRAZOLE (EC) 40 MG TAB PO (06:16)
[2018-05-21 06:27] LABS: INR 3.38; PROTIME 34.2 Sec (11.9-14.9); PT RATIO 2.7
[2018-05-21 06:43] LABS: ANION GAP 8 (5-13); BLOOD UREA NITROGEN 20 mg/dl (7-20); CALCIUM 9.1 mg/dl (8.4-10.2); CARBON DIOXIDE 30 mmol/L (21-31); CHLORIDE 99 mmol/L (97-110); CREATININE 0.65 mg/dl (0.44-1.00); Estimated GFR > 60 mL/min (>60); GLUCOSE 125 mg/dl (70-220); MAGNESIUM 1.8 mg/dl (1.7-2.5); POTASSIUM 3.9 mmol/L (3.5-5.1); SODIUM 137 mmol/L (135-144)
[2018-05-21] MEDS: BUMETANIDE 1 MG TAB PO (08:27)
[2018-05-21] MEDS: DOCUSATE SODIUM 100 MG CAP PO (08:27)
[2018-05-21] MEDS: NYSTATIN SUSP 5 ML CUP PO ×4 (08:27→21:33)
[2018-05-21] MEDS: FERROUS SULFATE (EC) 325 MG TAB PO ×2 (08:27→21:33)
[2018-05-21] MEDS: AMIODARONE 200 MG TAB PO ×2 (08:28→21:33)
[2018-05-21] MEDS: MOMETASONE 0.24 GM INHALER INH (09:22)
[2018-05-21] MEDS: WARFARIN 5 MG TAB PO (17:12)
[2018-05-21] MEDS: LATANOPROST 0.005% 2.5 ML OPH BOTH EYES (21:33)
[2018-05-21] MEDS: ATORVASTATIN 10 MG TAB PO (21:33)
[2018-05-22] MEDS: LEVOTHYROXINE 50 MCG TAB PO (06:08)
[2018-05-22] MEDS: PANTOPRAZOLE (EC) 40 MG TAB PO (06:08)
[2018-05-22] MEDS: MOMETASONE 0.24 GM INHALER INH (08:27)
[2018-05-22] MEDS: BUMETANIDE 1 MG TAB PO (08:27)
[2018-05-22] MEDS: NYSTATIN SUSP 5 ML CUP PO ×4 (08:27→20:52)
[2018-05-22] MEDS: FERROUS SULFATE (EC) 325 MG TAB PO ×2 (08:28→20:52)
[2018-05-22] MEDS: AMIODARONE 200 MG TAB PO ×2 (08:28→20:52)
[2018-05-22] MEDS: DOCUSATE SODIUM 100 MG CAP PO (08:28)
[2018-05-22 09:24] LABS: INR 3.63; PROTIME 36.1 Sec (11.9-14.9); PT RATIO 2.8
[2018-05-22] MEDS: ATORVASTATIN 10 MG TAB PO (20:52)
[2018-05-22] MEDS: LATANOPROST 0.005% 2.5 ML OPH BOTH EYES (21:01)
[2018-05-23] MEDS: PANTOPRAZOLE (EC) 40 MG TAB PO (05:19)
[2018-05-23] MEDS: LEVOTHYROXINE 50 MCG TAB PO (06:01)
[2018-05-23 06:55] LABS: ADD MAN DIFF? NO
[2018-05-23 07:03] LABS: WHITE BLOOD COUNT 4.7 10^3/ul (4.8-10.8)
[2018-05-23 07:03] LABS: BASOPHILS % 0.6 % (0.0-2.0); EOSINOPHILS # 0.1 10^3/ul (0.0-0.5); EOSINOPHILS % 1.9 % (0.0-7.0); HEMATOCRIT 29.1 % (37.0-47.0); HEMOGLOBIN 9.4 g/dl (12.0-16.0); LYMPHOCYTES # 1.5 10^3/ul (0.8-2.9); LYMPHOCYTES % 31.6 % (15.0-51.0); MEAN CORPUSCULAR HEMOGLOBIN 31.3 pg (29.0-33.0); MEAN CORPUSCULAR HGB CONC 32.3 g/dl (32.0-37.0); MEAN PLATELET VOLUME 9.1 fl (7.4-10.4); MONOCYTE # 0.4 10^3/ul (0.3-0.9); MONOCYTES % 7.7 % (0.0-11.0); NEUTROPHIL # 2.6 10^3/ul (1.6-7.5); NEUTROPHILS % 55.9 % (39.0-77.0); PLATELET COUNT 229 10^3/UL (140-415); RED CELL DISTRIBUTION WIDTH 15.9 % (11.5-14.5)
[2018-05-23 07:26] LABS: ANION GAP 5 (5-13); BLOOD UREA NITROGEN 21 mg/dl (7-20); CALCIUM 9.2 mg/dl (8.4-10.2); CARBON DIOXIDE 33 mmol/L (21-31); CHLORIDE 100 mmol/L (97-110); CREATININE 0.65 mg/dl (0.44-1.00); Estimated GFR > 60 mL/min (>60); GLUCOSE 128 mg/dl (70-220); POTASSIUM 3.5 mmol/L (3.5-5.1); SODIUM 138 mmol/L (135-144)
[2018-05-23 07:40] LABS: INR 3.41; PROTIME 34.4 Sec (11.9-14.9); PT RATIO 2.7
[2018-05-23] MEDS: BUMETANIDE 1 MG TAB PO (08:46)
[2018-05-23] MEDS: DOCUSATE SODIUM 100 MG CAP PO (08:46)
[2018-05-23] MEDS: FERROUS SULFATE (EC) 325 MG TAB PO ×2 (08:46→20:27)
[2018-05-23] MEDS: NYSTATIN SUSP 5 ML CUP PO ×4 (08:46→20:27)
[2018-05-23] MEDS: AMIODARONE 200 MG TAB PO (08:46)
[2018-05-23] MEDS: MOMETASONE 0.24 GM INHALER INH (08:47)
[2018-05-23] MEDS: ATORVASTATIN 10 MG TAB PO (20:27)
[2018-05-23] MEDS: LATANOPROST 0.005% 2.5 ML OPH BOTH EYES (20:28)
[2018-05-24] MEDS: PANTOPRAZOLE (EC) 40 MG TAB PO (05:57)
[2018-05-24] MEDS: LEVOTHYROXINE 50 MCG TAB PO (06:00)
[2018-05-24 08:47] LABS: INR 2.48; PROTIME 26.9 Sec (11.9-14.9); PT RATIO 2.1
[2018-05-24] MEDS: MOMETASONE 0.24 GM INHALER INH (08:47)
[2018-05-24] MEDS: NYSTATIN SUSP 5 ML CUP PO ×4 (08:47→21:18)
[2018-05-24] MEDS: FERROUS SULFATE (EC) 325 MG TAB PO ×2 (08:48→21:18)
[2018-05-24] MEDS: BUMETANIDE 1 MG TAB PO (08:48)
[2018-05-24] MEDS: DOCUSATE SODIUM 100 MG CAP PO (08:49)
[2018-05-24] MEDS: AMIODARONE 200 MG TAB PO (08:49)
[2018-05-24] MEDS: ATORVASTATIN 10 MG TAB PO (21:17)
[2018-05-24] MEDS: LATANOPROST 0.005% 2.5 ML OPH BOTH EYES (21:18)
[2018-05-25] MEDS: PANTOPRAZOLE (EC) 40 MG TAB PO (05:51)
[2018-05-25] MEDS: LEVOTHYROXINE 50 MCG TAB PO (05:51)
[2018-05-25 06:54] LABS: INR 1.85; PROTIME 21.4 Sec (11.9-14.9); PT RATIO 1.7
[2018-05-25] MEDS: DOCUSATE SODIUM 100 MG CAP PO (08:48)
[2018-05-25] MEDS: FERROUS SULFATE (EC) 325 MG TAB PO ×2 (08:48→20:48)
[2018-05-25] MEDS: NYSTATIN SUSP 5 ML CUP PO ×4 (08:48→20:48)
[2018-05-25] MEDS: AMIODARONE 200 MG TAB PO (08:48)
[2018-05-25] MEDS: MOMETASONE 0.24 GM INHALER INH (08:48)
[2018-05-25] MEDS: BUMETANIDE 1 MG TAB PO (08:48)
[2018-05-25] MEDS: WARFARIN 5 MG TAB PO (16:38)
[2018-05-25] MEDS: ATORVASTATIN 10 MG TAB PO (20:48)
[2018-05-25] MEDS: LATANOPROST 0.005% 2.5 ML OPH BOTH EYES (20:48)
[2018-05-26] MEDS: PANTOPRAZOLE (EC) 40 MG TAB PO (06:24)
[2018-05-26] MEDS: LEVOTHYROXINE 50 MCG TAB PO (06:24)
[2018-05-26 06:34] LABS: PROTIME 19.1 Sec (11.9-14.9); PT RATIO 1.5
[2018-05-26] MEDS: BUMETANIDE 1 MG TAB PO (08:21)
[2018-05-26] MEDS: FERROUS SULFATE (EC) 325 MG TAB PO ×2 (08:21→20:36)
[2018-05-26] MEDS: MOMETASONE 0.24 GM INHALER INH (08:21)
[2018-05-26] MEDS: NYSTATIN SUSP 5 ML CUP PO ×4 (08:22→20:34)
[2018-05-26] MEDS: AMIODARONE 200 MG TAB PO (08:22)
[2018-05-26] MEDS: DOCUSATE SODIUM 100 MG CAP PO (08:23)
[2018-05-26] MEDS: WARFARIN 3 MG TAB PO (17:26)
[2018-05-26] MEDS: LATANOPROST 0.005% 2.5 ML OPH BOTH EYES (20:35)
[2018-05-26] MEDS: ATORVASTATIN 10 MG TAB PO (20:35)
[2018-05-26] MEDS: METOPROLOL 25 MG TAB PO (20:36)
[2018-05-27] MEDS: LEVOTHYROXINE 50 MCG TAB PO (06:04)
[2018-05-27] MEDS: PANTOPRAZOLE (EC) 40 MG TAB PO (06:04)
[2018-05-27] MEDS: NYSTATIN SUSP 5 ML CUP PO ×4 (08:03→20:26)
[2018-05-27] MEDS: DOCUSATE SODIUM 100 MG CAP PO (08:03)
[2018-05-27] MEDS: FERROUS SULFATE (EC) 325 MG TAB PO ×2 (08:03→20:26)
[2018-05-27] MEDS: MOMETASONE 0.24 GM INHALER INH (08:03)
[2018-05-27] MEDS: BUMETANIDE 1 MG TAB PO (08:03)
[2018-05-27] MEDS: AMIODARONE 200 MG TAB PO (08:04)
[2018-05-27] MEDS: METOPROLOL 25 MG TAB PO ×2 (08:05→20:27)
[2018-05-27 09:46] LABS: ANION GAP 8 (5-13); BLOOD UREA NITROGEN 21 mg/dl (7-20); CALCIUM 9.2 mg/dl (8.4-10.2); CARBON DIOXIDE 31 mmol/L (21-31); CHLORIDE 97 mmol/L (97-110); CREATININE 0.69 mg/dl (0.44-1.00); Estimated GFR > 60 mL/min (>60); GLUCOSE 110 mg/dl (70-220); MAGNESIUM 1.9 mg/dl (1.7-2.5); POTASSIUM 3.2 mmol/L (3.5-5.1); SODIUM 136 mmol/L (135-144)
[2018-05-27] MEDS: WARFARIN 3 MG TAB PO (16:53)
[2018-05-27] MEDS: POTASSIUM CHLORIDE 20 MEQ POWDER FOR ORAL SOLN PO (17:13)
[2018-05-27] MEDS: LATANOPROST 0.005% 2.5 ML OPH BOTH EYES (20:26)
[2018-05-27] MEDS: ATORVASTATIN 10 MG TAB PO (20:26)
[2018-05-28] MEDS: PANTOPRAZOLE (EC) 40 MG TAB PO (05:25)
[2018-05-28] MEDS: LEVOTHYROXINE 50 MCG TAB PO (06:14)
[2018-05-28 07:21] LABS: PROTIME 25.4 Sec (11.9-14.9)
[2018-05-28] MEDS ORDERED: POTASSIUM CHLORIDE (SR) 10 MEQ TAB PO (09:00)
[2018-05-28] MEDS: NYSTATIN SUSP 5 ML CUP PO ×4 (09:11→20:27)
[2018-05-28] MEDS: MOMETASONE 0.24 GM INHALER INH (09:11)
[2018-05-28] MEDS: BUMETANIDE 1 MG TAB PO (09:12)
[2018-05-28] MEDS: POTASSIUM CHLORIDE (SR) 10 MEQ TAB PO (09:12)
[2018-05-28] MEDS: DOCUSATE SODIUM 100 MG CAP PO (09:12)
[2018-05-28] MEDS: METOPROLOL 25 MG TAB PO ×2 (09:13→20:27)
[2018-05-28] MEDS: AMIODARONE 200 MG TAB PO (09:13)
[2018-05-28] MEDS: FERROUS SULFATE (EC) 325 MG TAB PO ×2 (09:13→20:28)
[2018-05-28] MEDS: WARFARIN 3 MG TAB PO (18:16)
[2018-05-28] MEDS: ATORVASTATIN 10 MG TAB PO (20:27)
[2018-05-28] MEDS: LATANOPROST 0.005% 2.5 ML OPH BOTH EYES (20:28)
[2018-05-29] MEDS: LEVOTHYROXINE 50 MCG TAB PO (06:13)
[2018-05-29] MEDS: PANTOPRAZOLE (EC) 40 MG TAB PO (06:13)
[2018-05-29] MEDS: NYSTATIN SUSP 5 ML CUP PO ×4 (08:34→21:26)
[2018-05-29] MEDS: FERROUS SULFATE (EC) 325 MG TAB PO ×2 (08:34→21:26)
[2018-05-29] MEDS: BUMETANIDE 1 MG TAB PO (08:34)
[2018-05-29] MEDS: DOCUSATE SODIUM 100 MG CAP PO (08:35)
[2018-05-29] MEDS: POTASSIUM CHLORIDE (SR) 10 MEQ TAB PO (08:35)
[2018-05-29] MEDS: MOMETASONE 0.24 GM INHALER INH (08:35)
[2018-05-29] MEDS: METOPROLOL 25 MG TAB PO ×2 (08:35→21:26)
[2018-05-29] MEDS: AMIODARONE 200 MG TAB PO (08:35)
[2018-05-29 09:08] LABS: ANION GAP 7 (5-13); BLOOD UREA NITROGEN 22 mg/dl (7-20); CALCIUM 9.5 mg/dl (8.4-10.2); CARBON DIOXIDE 28 mmol/L (21-31); CHLORIDE 102 mmol/L (97-110); CREATININE 0.64 mg/dl (0.44-1.00); Estimated GFR > 60 mL/min (>60); GLUCOSE 102 mg/dl (70-220); MAGNESIUM 1.9 mg/dl (1.7-2.5); PHOSPHORUS 4.2 mg/dl (2.5-4.9); POTASSIUM 4.1 mmol/L (3.5-5.1); SODIUM 137 mmol/L (135-144)
[2018-05-29 09:20] LABS: INR 2.82; PROTIME 29.7 Sec (11.9-14.9); PT RATIO 2.3
[2018-05-29 13:11] LABS: ADD UMIC YES; UR ASCORBIC ACID NEGATIVE (NEGATIVE); UR BACTERIA MODERATE /HPF (NONE SEEN); UR BILIRUBIN (Dip) NEGATIVE (NEGATIVE); UR BLOOD (Dip) 3+ mg/dL (NEGATIVE); UR CLARITY TURBID (CLEAR); UR COLOR AMBER (YELLOW); UR GLUCOSE (Dip) NEGATIVE (NEGATIVE); UR KETONES (Dip) NEGATIVE (NEGATIVE); UR LEUKOCYTE ESTERASE (Dip) 3+ Leu/ul (NEGATIVE); UR NITRITE (Dip) POSITIVE (NEGATIVE); UR NONSQUAMOUS EPITHELIAL CELL 2 /HPF (NONE SEEN); UR RBC 37 /HPF (0-5); UR SPECIFIC GRAVITY (Dip) 1.009 (1.003-1.030); UR SQUAMOUS EPITHELIAL CELL FEW /HPF (FEW); UR TOTAL PROTEIN (Dip) 2+ mg/dl (NEGATIVE); UR UROBILINOGEN (Dip) NEGATIVE (NEGATIVE); UR WBC > 182 /HPF (0-5)
[2018-05-29] MEDS: WARFARIN 3 MG TAB PO (17:39)
[2018-05-29] MEDS: ATORVASTATIN 10 MG TAB PO (21:26)
[2018-05-29] MEDS: LATANOPROST 0.005% 2.5 ML OPH BOTH EYES (21:27)
[2018-05-30] MEDS: PANTOPRAZOLE (EC) 40 MG TAB PO (05:58)
[2018-05-30] MEDS: LEVOTHYROXINE 50 MCG TAB PO (06:00)
[2018-05-30 07:14] LABS: ADD MAN DIFF? NO
[2018-05-30 07:26] LABS: WHITE BLOOD COUNT 4.4 10^3/ul (4.8-10.8)
[2018-05-30 07:26] LABS: BASOPHILS % 0.7 % (0.0-2.0); EOSINOPHILS # 0.1 10^3/ul (0.0-0.5); EOSINOPHILS % 1.6 % (0.0-7.0); HEMATOCRIT 27.5 % (37.0-47.0); HEMOGLOBIN 8.8 g/dl (12.0-16.0); LYMPHOCYTES # 1.3 10^3/ul (0.8-2.9); LYMPHOCYTES % 29.1 % (15.0-51.0); MEAN CORPUSCULAR VOLUME 96.8 fl (82.0-101.0); MEAN PLATELET VOLUME 9.5 fl (7.4-10.4); MONOCYTE # 0.4 10^3/ul (0.3-0.9); MONOCYTES % 8.2 % (0.0-11.0); NEUTROPHIL # 2.6 10^3/ul (1.6-7.5); NEUTROPHILS % 59.3 % (39.0-77.0); PLATELET COUNT 244 10^3/UL (140-415); RED BLOOD COUNT 2.84 10^6/ul (4.20-5.40); RED CELL DISTRIBUTION WIDTH 15.8 % (11.5-14.5)
[2018-05-30] MEDS: MOMETASONE 0.24 GM INHALER INH (08:34)
[2018-05-30] MEDS: POTASSIUM CHLORIDE (SR) 10 MEQ TAB PO (08:35)
[2018-05-30] MEDS: DOCUSATE SODIUM 100 MG CAP PO (08:35)
[2018-05-30] MEDS: BUMETANIDE 1 MG TAB PO (08:35)
[2018-05-30] MEDS: NYSTATIN SUSP 5 ML CUP PO ×4 (08:35→20:21)
[2018-05-30] MEDS: FERROUS SULFATE (EC) 325 MG TAB PO ×2 (08:36→20:20)
[2018-05-30] MEDS: METOPROLOL 25 MG TAB PO ×2 (08:36→20:21)
[2018-05-30] MEDS: AMIODARONE 200 MG TAB PO (08:37)
[2018-05-30] MEDS ORDERED: ALBUTEROL/IPRATROPIUM (NEB) 3 ML AMP HHN (12:00)
[2018-05-30] MEDS: BUMETANIDE 1 MG INJ IV (17:27)
[2018-05-30] MEDS: WARFARIN 3 MG TAB PO (17:28)
[2018-05-30] MEDS ORDERED: LEVALBUTEROL (NEB) 1.25 MG/0.5 ML AMP HHN ×2 (20:00→21:37)
[2018-05-30] MEDS: ATORVASTATIN 10 MG TAB PO (20:20)
[2018-05-30] MEDS: LATANOPROST 0.005% 2.5 ML OPH BOTH EYES (20:20)
[2018-05-30] MEDS: LEVALBUTEROL (NEB) 1.25 MG/0.5 ML AMP HHN (21:31)
[2018-05-31] MEDS: LEVALBUTEROL (NEB) 1.25 MG/0.5 ML AMP HHN ×4 (02:00→20:43)
[2018-05-31] MEDS: LEVOTHYROXINE 50 MCG TAB PO (05:34)
[2018-05-31] MEDS: PANTOPRAZOLE (EC) 40 MG TAB PO (05:34)
[2018-05-31 06:42] LABS: ADD MAN DIFF? NO
[2018-05-31 06:45] LABS: WHITE BLOOD COUNT 5.2 10^3/ul (4.8-10.8)
[2018-05-31 06:45] LABS: BASOPHILS % 0.6 % (0.0-2.0); EOSINOPHILS # 0.1 10^3/ul (0.0-0.5); EOSINOPHILS % 1.7 % (0.0-7.0); HEMATOCRIT 27.9 % (37.0-47.0); HEMOGLOBIN 9.2 g/dl (12.0-16.0); LYMPHOCYTES # 1.5 10^3/ul (0.8-2.9); LYMPHOCYTES % 29.4 % (15.0-51.0); MEAN CORPUSCULAR HEMOGLOBIN 31.7 pg (29.0-33.0); MEAN CORPUSCULAR VOLUME 96.2 fl (82.0-101.0); MEAN PLATELET VOLUME 9.3 fl (7.4-10.4); MONOCYTE # 0.4 10^3/ul (0.3-0.9); MONOCYTES % 7.5 % (0.0-11.0); NEUTROPHIL # 3.1 10^3/ul (1.6-7.5); NEUTROPHILS % 59.8 % (39.0-77.0); PLATELET COUNT 259 10^3/UL (140-415); RED CELL DISTRIBUTION WIDTH 15.8 % (11.5-14.5)
[2018-05-31 07:04] LABS: INR 3.95; PROTIME 38.6 Sec (11.9-14.9)
[2018-05-31 07:09] LABS: ANION GAP 7 (5-13); BLOOD UREA NITROGEN 21 mg/dl (7-20); CALCIUM 9.5 mg/dl (8.4-10.2); CARBON DIOXIDE 30 mmol/L (21-31); CHLORIDE 101 mmol/L (97-110); CREATININE 0.71 mg/dl (0.44-1.00); Estimated GFR > 60 mL/min (>60); GLUCOSE 126 mg/dl (70-220); POTASSIUM 3.3 mmol/L (3.5-5.1); SODIUM 138 mmol/L (135-144)
[2018-05-31] MEDS: POTASSIUM CHLORIDE (SR) 10 MEQ TAB PO (09:42)
[2018-05-31] MEDS: MOMETASONE 0.24 GM INHALER INH (09:42)
[2018-05-31] MEDS: NYSTATIN SUSP 5 ML CUP PO ×4 (09:42→20:35)
[2018-05-31] MEDS: DOCUSATE SODIUM 100 MG CAP PO (09:42)
[2018-05-31] MEDS: BUMETANIDE 1 MG TAB PO (09:42)
[2018-05-31] MEDS: FERROUS SULFATE (EC) 325 MG TAB PO ×2 (09:43→20:35)
[2018-05-31] MEDS: AMIODARONE 200 MG TAB PO (09:43)
[2018-05-31] MEDS: METOPROLOL 25 MG TAB PO ×2 (09:44→20:36)
[2018-05-31] MEDS: WARFARIN 5 MG TAB PO (17:44)
[2018-05-31] MEDS ORDERED: ALBUTEROL/IPRATROPIUM (NEB) 3 ML AMP HHN (20:00)
[2018-05-31] MEDS: LATANOPROST 0.005% 2.5 ML OPH BOTH EYES (20:35)
[2018-05-31] MEDS: ATORVASTATIN 10 MG TAB PO (20:36)
[2018-06-01] MEDS: LEVALBUTEROL (NEB) 1.25 MG/0.5 ML AMP HHN ×4 (01:16→19:43)
[2018-06-01] MEDS: PANTOPRAZOLE (EC) 40 MG TAB PO (06:00)
[2018-06-01] MEDS: LEVOTHYROXINE 50 MCG TAB PO (06:00)
[2018-06-01] MEDS: MOMETASONE 0.24 GM INHALER INH (08:54)
[2018-06-01] MEDS: BUMETANIDE 1 MG TAB PO (08:55)
[2018-06-01] MEDS: NYSTATIN SUSP 5 ML CUP PO ×4 (08:55→21:29)
[2018-06-01] MEDS: DOCUSATE SODIUM 100 MG CAP PO (08:56)
[2018-06-01] MEDS: POTASSIUM CHLORIDE (SR) 10 MEQ TAB PO (08:56)
[2018-06-01] MEDS: METOPROLOL 25 MG TAB PO ×2 (08:56→21:31)
[2018-06-01] MEDS: AMIODARONE 200 MG TAB PO (08:56)
[2018-06-01] MEDS: FERROUS SULFATE (EC) 325 MG TAB PO ×2 (08:56→21:34)
[2018-06-01 11:50] LABS: INR 4.13; PROTIME 39.9 Sec (11.9-14.9); PT RATIO 3.1
[2018-06-01] MEDS: WARFARIN 2 MG TAB PO (17:03)
[2018-06-01] MEDS: LATANOPROST 0.005% 2.5 ML OPH BOTH EYES (21:30)
[2018-06-01] MEDS: ATORVASTATIN 10 MG TAB PO (21:30)
[2018-06-02] MEDS: LEVALBUTEROL (NEB) 1.25 MG/0.5 ML AMP HHN ×4 (01:14→20:00)
[2018-06-02] MEDS: PANTOPRAZOLE (EC) 40 MG TAB PO (06:05)
[2018-06-02] MEDS: LEVOTHYROXINE 50 MCG TAB PO (06:05)
[2018-06-02] MEDS: NYSTATIN SUSP 5 ML CUP PO ×4 (08:19→20:36)
[2018-06-02] MEDS: POTASSIUM CHLORIDE (SR) 10 MEQ TAB PO (08:19)
[2018-06-02] MEDS: DOCUSATE SODIUM 100 MG CAP PO (08:19)
[2018-06-02] MEDS: METOPROLOL 25 MG TAB PO ×2 (08:20→20:36)
[2018-06-02] MEDS: AMIODARONE 200 MG TAB PO (08:20)
[2018-06-02] MEDS: BUMETANIDE 1 MG TAB PO ×2 (08:20→20:36)
[2018-06-02] MEDS: FERROUS SULFATE (EC) 325 MG TAB PO ×2 (08:21→20:36)
[2018-06-02] MEDS: MOMETASONE 0.24 GM INHALER INH (08:22)
[2018-06-02 11:44] LABS: INR 4.17; PROTIME 40.2 Sec (11.9-14.9); PT RATIO 3.1
[2018-06-02] MEDS: ATORVASTATIN 10 MG TAB PO (20:35)
[2018-06-02] MEDS: LATANOPROST 0.005% 2.5 ML OPH BOTH EYES (20:37)
[2018-06-03] MEDS: LEVALBUTEROL (NEB) 1.25 MG/0.5 ML AMP HHN ×4 (02:00→19:39)
[2018-06-03] MEDS: PANTOPRAZOLE (EC) 40 MG TAB PO (06:18)
[2018-06-03] MEDS: LEVOTHYROXINE 50 MCG TAB GTB (06:18)
[2018-06-03 06:52] LABS: ANION GAP 6 (5-13); BLOOD UREA NITROGEN 20 mg/dl (7-20); CALCIUM 9.3 mg/dl (8.4-10.2); CARBON DIOXIDE 30 mmol/L (21-31); CHLORIDE 103 mmol/L (97-110); CREATININE 0.77 mg/dl (0.44-1.00); Estimated GFR > 60 mL/min (>60); GLUCOSE 121 mg/dl (70-220); MAGNESIUM 1.7 mg/dl (1.7-2.5); PHOSPHORUS 4.1 mg/dl (2.5-4.9); POTASSIUM 3.4 mmol/L (3.5-5.1); SODIUM 139 mmol/L (135-144)
[2018-06-03] MEDS: NYSTATIN SUSP 5 ML CUP PO ×4 (09:09→20:44)
[2018-06-03] MEDS: DOCUSATE SODIUM 100 MG CAP PO (09:09)
[2018-06-03] MEDS: POTASSIUM CHLORIDE (SR) 10 MEQ TAB PO (09:09)
[2018-06-03] MEDS: BUMETANIDE 1 MG TAB PO ×2 (09:09→20:44)
[2018-06-03] MEDS: METOPROLOL 25 MG TAB PO ×2 (09:10→20:44)
[2018-06-03] MEDS: FERROUS SULFATE (EC) 325 MG TAB PO ×2 (09:10→20:44)
[2018-06-03] MEDS: MOMETASONE 0.24 GM INHALER INH (09:13)
[2018-06-03] MEDS: POTASSIUM CHLORIDE (SR) 20 MEQ TAB PO (12:49)
[2018-06-03] MEDS: LATANOPROST 0.005% 2.5 ML OPH BOTH EYES (20:44)
[2018-06-03] MEDS: ATORVASTATIN 10 MG TAB PO (20:44)
[2018-06-04] MEDS: LEVALBUTEROL (NEB) 1.25 MG/0.5 ML AMP HHN ×5 (02:00→20:34)
[2018-06-04] MEDS: PANTOPRAZOLE (EC) 40 MG TAB PO (05:30)
[2018-06-04] MEDS: LEVOTHYROXINE 50 MCG TAB GTB (05:30)
[2018-06-04 07:26] LABS: ADD MAN DIFF? NO
[2018-06-04 07:29] LABS: WHITE BLOOD COUNT 4.1 10^3/ul (4.8-10.8)
[2018-06-04 07:29] LABS: BASOPHILS % 0.5 % (0.0-2.0); EOSINOPHILS # 0.1 10^3/ul (0.0-0.5); EOSINOPHILS % 2.2 % (0.0-7.0); HEMATOCRIT 29.6 % (37.0-47.0); HEMOGLOBIN 9.7 g/dl (12.0-16.0); LYMPHOCYTES # 1.3 10^3/ul (0.8-2.9); LYMPHOCYTES % 32.6 % (15.0-51.0); MEAN CORPUSCULAR HEMOGLOBIN 31.7 pg (29.0-33.0); MEAN CORPUSCULAR HGB CONC 32.8 g/dl (32.0-37.0); MEAN CORPUSCULAR VOLUME 96.7 fl (82.0-101.0); MEAN PLATELET VOLUME 9.3 fl (7.4-10.4); MONOCYTE # 0.4 10^3/ul (0.3-0.9); NEUTROPHIL # 2.2 10^3/ul (1.6-7.5); NEUTROPHILS % 53.5 % (39.0-77.0); PLATELET COUNT 232 10^3/UL (140-415); RED BLOOD COUNT 3.06 10^6/ul (4.20-5.40); RED CELL DISTRIBUTION WIDTH 15.5 % (11.5-14.5)
[2018-06-04 07:48] LABS: INR 2.56; PROTIME 27.6 Sec (11.9-14.9); PT RATIO 2.2
[2018-06-04 07:57] LABS: ANION GAP 7 (5-13); BLOOD UREA NITROGEN 22 mg/dl (7-20); CALCIUM 9.3 mg/dl (8.4-10.2); CARBON DIOXIDE 31 mmol/L (21-31); CHLORIDE 102 mmol/L (97-110); CREATININE 0.75 mg/dl (0.44-1.00); Estimated GFR > 60 mL/min (>60); GLUCOSE 106 mg/dl (70-220); POTASSIUM 3.2 mmol/L (3.5-5.1); SODIUM 140 mmol/L (135-144)
[2018-06-04] MEDS: BUMETANIDE 1 MG TAB PO ×2 (09:15→20:30)
[2018-06-04] MEDS: DOCUSATE SODIUM 100 MG CAP PO (09:15)
[2018-06-04] MEDS: POTASSIUM CHLORIDE (SR) 10 MEQ TAB PO (09:15)
[2018-06-04] MEDS: SPIRONOLACTONE 25 MG TAB PO (09:16)
[2018-06-04] MEDS: FERROUS SULFATE (EC) 325 MG TAB PO ×2 (09:16→20:30)
[2018-06-04] MEDS: METOPROLOL 25 MG TAB PO ×2 (09:16→20:31)
[2018-06-04] MEDS: MOMETASONE 0.24 GM INHALER INH (09:17)
[2018-06-04 09:18] LABS: 50/50 PTT IMMED 30.3 Sec
[2018-06-04] MEDS: NYSTATIN SUSP 5 ML CUP PO ×4 (09:18→20:30)
[2018-06-04 10:25] LABS: 50/50 PTT 1 HOUR 33.4 Sec
[2018-06-04] MEDS: MAGNESIUM SULFATE 2 GM/50 ML 50 ML IVPB ×2 (10:46→13:07)
[2018-06-04] MEDS: POTASSIUM CHLORIDE (SR) 20 MEQ TAB PO (13:28)
[2018-06-04] MEDS ORDERED: ALTEPLASE (CATHFLO) 2 MG INJ CATHETER (13:30)
[2018-06-04] MEDS: WARFARIN 5 MG TAB PO (17:07)
[2018-06-04] MEDS: ATORVASTATIN 10 MG TAB PO (20:30)
[2018-06-04] MEDS: LATANOPROST 0.005% 2.5 ML OPH BOTH EYES (20:37)
[2018-06-05] MEDS: LEVOTHYROXINE 50 MCG TAB GTB (06:12)
[2018-06-05] MEDS: PANTOPRAZOLE (EC) 40 MG TAB PO (06:12)
[2018-06-05 06:41] LABS: ADD MAN DIFF? NO
[2018-06-05 06:45] LABS: WHITE BLOOD COUNT 4.2 10^3/ul (4.8-10.8)
[2018-06-05 06:45] LABS: BASOPHILS % 0.7 % (0.0-2.0); EOSINOPHILS # 0.1 10^3/ul (0.0-0.5); EOSINOPHILS % 2.9 % (0.0-7.0); HEMATOCRIT 28.3 % (37.0-47.0); HEMOGLOBIN 9.4 g/dl (12.0-16.0); LYMPHOCYTES # 1.4 10^3/ul (0.8-2.9); MEAN CORPUSCULAR HEMOGLOBIN 31.9 pg (29.0-33.0); MEAN CORPUSCULAR HGB CONC 33.2 g/dl (32.0-37.0); MEAN CORPUSCULAR VOLUME 95.9 fl (82.0-101.0); MEAN PLATELET VOLUME 9.1 fl (7.4-10.4); MONOCYTE # 0.4 10^3/ul (0.3-0.9); MONOCYTES % 9.8 % (0.0-11.0); NEUTROPHIL # 2.2 10^3/ul (1.6-7.5); NEUTROPHILS % 52.4 % (39.0-77.0); PLATELET COUNT 214 10^3/UL (140-415); RED BLOOD COUNT 2.95 10^6/ul (4.20-5.40); RED CELL DISTRIBUTION WIDTH 15.4 % (11.5-14.5)
[2018-06-05 07:02] LABS: ANION GAP 8 (5-13); BLOOD UREA NITROGEN 24 mg/dl (7-20); CALCIUM 9.2 mg/dl (8.4-10.2); CARBON DIOXIDE 30 mmol/L (21-31); CHLORIDE 103 mmol/L (97-110); CREATININE 0.65 mg/dl (0.44-1.00); Estimated GFR > 60 mL/min (>60); GLUCOSE 112 mg/dl (70-220); MAGNESIUM 1.9 mg/dl (1.7-2.5); POTASSIUM 3.4 mmol/L (3.5-5.1); SODIUM 141 mmol/L (135-144)
[2018-06-05 07:03] LABS: PHOSPHORUS 3.6 mg/dl (2.5-4.9)
[2018-06-05] MEDS: POTASSIUM CHLORIDE (SR) 20 MEQ TAB PO (07:39)
[2018-06-05 07:43] LABS: INR 2.13; PARTIAL THROMBOPLASTIN TIME 35.9 Sec (23.0-35.0); PROTIME 23.9 Sec (11.9-14.9); PT RATIO 1.9
[2018-06-05] MEDS: LEVALBUTEROL (NEB) 1.25 MG/0.5 ML AMP HHN ×2 (08:00→14:00)
[2018-06-05] MEDS: FERROUS SULFATE (EC) 325 MG TAB PO (09:14)
[2018-06-05] MEDS: BUMETANIDE 1 MG TAB PO (09:14)
[2018-06-05] MEDS: SPIRONOLACTONE 25 MG TAB PO (09:14)
[2018-06-05] MEDS: DOCUSATE SODIUM 100 MG CAP PO (09:14)
[2018-06-05] MEDS: POTASSIUM CHLORIDE (SR) 10 MEQ TAB PO (09:15)
[2018-06-05] MEDS: MOMETASONE 0.24 GM INHALER INH (09:15)
[2018-06-05] MEDS: METOPROLOL 25 MG TAB PO (09:15)
[2018-06-05] MEDS: NYSTATIN SUSP 5 ML CUP PO ×3 (09:15→17:08)
[2018-06-05] MEDS: WARFARIN 5 MG TAB PO (17:08)
== END 2018-06-05 18:57 | disposition home health service (06) | DRG 252 ==
LOC: CCL 07:04 → ICU 04-06 07:29 → TEL 04-11 05:26 → ICU 04-12 08:48 → SDS 07:04 → CCL 03-29 17:48 → TEL 04-23 23:13 → ICU 03-29 17:52 → CCL 10:14 → SDS 10:14 → CCL 07:04
PROC: 047K3DZ Dilation of Right Femoral Artery with Intraluminal Device, Percutaneous Approach (ICD-10-PCS; principal; 2018-03-28 08:43)
PROC: 047H3DZ Dilation of Right External Iliac Artery with Intraluminal Device, Percutaneous Approach (ICD-10-PCS; 2018-03-28 08:43)
PROC: 047D3ZZ Dilation of Left Common Iliac Artery, Percutaneous Approach (ICD-10-PCS; 2018-03-28 08:43)
PROC: 047N3ZZ Dilation of Left Popliteal Artery, Percutaneous Approach (ICD-10-PCS; 2018-03-28 08:43)
PROC: 30233N1 Transfusion of Nonautologous Red Blood Cells into Peripheral Vein, Percutaneous Approach (ICD-10-PCS; 2018-03-28 08:43)
PROC: 4A023N8 Measurement of Cardiac Sampling and Pressure, Bilateral, Percutaneous Approach (ICD-10-PCS; 2018-03-28 08:43)
PROC: B2111ZZ Fluoroscopy of Multiple Coronary Arteries using Low Osmolar Contrast (ICD-10-PCS; 2018-03-28 08:43)
PROC: B2161ZZ Fluoroscopy of Right and Left Heart using Low Osmolar Contrast (ICD-10-PCS; 2018-03-28 08:43)
PROC: 02HQ32Z Insertion of Monitoring Device into Right Pulmonary Artery, Percutaneous Approach (ICD-10-PCS; 2018-03-28 08:43)
PROC: 4A133B3 Monitoring of Arterial Pressure, Pulmonary, Percutaneous Approach (ICD-10-PCS; 2018-03-28 08:43)
PROC: 4A1239Z Monitoring of Cardiac Output, Percutaneous Approach (ICD-10-PCS; 2018-03-28 08:43)
PROC: 02HV33Z Insertion of Infusion Device into Superior Vena Cava, Percutaneous Approach (ICD-10-PCS; 2018-03-28 08:43)
PROC: 3E033PZ Introduction of Platelet Inhibitor into Peripheral Vein, Percutaneous Approach (ICD-10-PCS; 2018-03-28 08:43)
PROC: 3E05317 Introduction of Other Thrombolytic into Peripheral Artery, Percutaneous Approach (ICD-10-PCS; 2018-03-28 08:43)
PROC: 0W9J30Z Drainage of Pelvic Cavity with Drainage Device, Percutaneous Approach (ICD-10-PCS; 2018-03-28 08:43)
DX: I25.10 Atherosclerotic heart disease of native coronary artery without angina pectoris (principal); K66.1 Hemoperitoneum; A41.9 Sepsis, unspecified organism; R65.20 Severe sepsis without septic shock; N17.0 Acute kidney failure with tubular necrosis; D62 Acute posthemorrhagic anemia; N39.0 Urinary tract infection, site not specified; D68.9 Coagulation defect, unspecified; E87.1 Hypo-osmolality and hyponatremia; I74.3 Embolism and thrombosis of arteries of the lower extremities; N17.8 Other acute kidney failure; N82.0 Vesicovaginal fistula; Z95.2 Presence of prosthetic heart valve; I10 Essential (primary) hypertension; E78.5 Hyperlipidemia, unspecified; E03.9 Hypothyroidism, unspecified; J45.909 Unspecified asthma, uncomplicated; E87.6 Hypokalemia; K80.20 Calculus of gallbladder without cholecystitis without obstruction; I72.8 Aneurysm of other specified arteries; R04.0 Epistaxis; I35.1 Nonrheumatic aortic (valve) insufficiency; Z79.02 Long term (current) use of antithrombotics/antiplatelets; R34 Anuria and oliguria; R60.9 Edema, unspecified; E87.5 Hyperkalemia; B96.20 Unspecified Escherichia coli [E. coli] as the cause of diseases classified elsewhere; G62.9 Polyneuropathy, unspecified; D72.829 Elevated white blood cell count, unspecified; N14.1 Nephropathy induced by other drugs, medicaments and biological substances; T50.8X5A Adverse effect of diagnostic agents, initial encounter; Y92.239 Unspecified place in hospital as the place of occurrence of the external cause; G72.89 Other specified myopathies; R31.0 Gross hematuria
CPT/HCPCS: 36430; 36569; 36589; 37211; 37224; 70450; 71045; 72192; 74018; 74176; 74177; 75625; 75710; 76705; 76775; 76856; 76937; 77012; 80048; 80051; 80053; 80061; 81001; 81003; 82043; 82270; 82390; 82525; 82962; 83605; 83735; 84100; 84132; 84145; 84155; 84300; 84443; 85014; 85018; 85025; 85049; 85335; 85610; 85670; 85730; 86038; 86255; 86644; 86704; 86709; 86803; 86850; 86870; 86900; 86901; 86920; 87040-91; 87070; 87075; 87081; 87086; 87340; 93005; 93306; 93456; 93922; 93970; 93971; 94640; 94664; 97110; 97116; 97162; 97164; 97167; 97530; 97535